=== PATIENT | female | born 1960 | race Caucasian/White ===

== ENCOUNTER → 2016-09-06 | Outpatient (CLI) | payer SELFPAY ==
[2016-09-06 08:02] LABS: CH 30.4; CHCM 32.8; HDW 2.25; HGB 13.5 gm/dL (11.4-16.0); MCH 29.9 pg (25.0-35.0); MCV 93.2 fL (80.0-100.0); Mean Platelet Volume 7.4; RBC 4.51 m/uL (3.80-5.40); WBC 6.9 k/uL (3.8-10.6)
[2016-09-06 10:23] LABS: ALT 32 U/L (9-52); AST 19 U/L (14-36); Alkaline Phosphatase 85 U/L (38-126); Anion Gap 10 mmol/L; Blood Urea Nitrogen 12 mg/dL (7-17); Calcium 9.3 mg/dL (8.4-10.2); Carbon Dioxide 26 mmol/L (22-30); Chloride 104 mmol/L (98-107); Cholesterol 209 mg/dL (<200); Glucose 84 mg/dL (74-99); HDL Cholesterol 64 mg/dL (40-60); Non-African American GFR(MDRD) >60 (>60 ml/min/1.73 sqM); Potassium 4.1 mmol/L (3.5-5.1); Sodium 140 mmol/L (137-145); Total Bilirubin 0.4 mg/dL (0.2-1.3); Total Protein 6.5 g/dL (6.3-8.2); Triglycerides 109 mg/dL (<150)
== END | disposition home or self-care (01) ==
LOC: LABWHC1 07:02
PROVIDERS: ATTEND Family Medicine
DX: Z00.00 Encounter for general adult medical examination without abnormal findings (principal); R82.90 Unspecified abnormal findings in urine
CPT/HCPCS: 36415; 80053; 80061; 84439; 84443; 85027

== ENCOUNTER → 2016-09-07 | Outpatient (CLI) | payer SELFPAY | END | disposition home or self-care (01) | LOC: LABWHC1 08:12 | PROVIDERS: ATTEND Family Medicine | DX: Z00.00 Encounter for general adult medical examination without abnormal findings (principal); R82.90 Unspecified abnormal findings in urine | CPT/HCPCS: 36415; 84588 ==

== ENCOUNTER 2017-05-09 11:10 | Inpatient (IN) | payer OTHER ==
[2017-05-09] MEDS ORDERED: ONDANSETRON 4 MG/2 ML VIAL IVP STA (12:50)
[2017-05-09] MEDS ORDERED: SODIUM CHLORIDE 0.9% 1,000 ML IV STA ×2 (12:50→14:46)
[2017-05-09] MEDS ORDERED: RX INFO: IV CONTRAST WAS GIVEN 1 EACH MISC MISCELLANE PRN (12:51)
--- NOTE | 2017-05-09 12:54 | ED ---
General Adult HPI - General Chief complaint: Nausea/Vomiting/Diarrhea Stated complaint: lower abdominal pain Ca patient Time Seen by Provider: 05/09/17 12:41 Source: patient, RN notes reviewed Mode of arrival: ambulatory Limitations: no limitations - History of Present Illness Initial comments: 56-year-old female presents to the emergency department with a chief complaint of lower abdominal pain with nausea vomiting. Patient states this started yesterday. Patient has noticed some changes in urination. Patient denies any fever chills with this. She states she has had a history of lymphoma she spoke to her cancer doctor and she was referred here due to the fact they do not know if it's related to her lymphoma pain versus something else. Patient states there is been no other symptoms at this time. Patient denies any back pain. Patient states she is not currently undergoing chemo and radiation. They were concerned due to the continued pain that wraps around her lower abdomen so she thought that she should be seen. There is been no diarrhea no blood in stool. Patient denies any recent fever, chills, shortness of breath, chest pain, back pain, numbness or tingling, dysuria or hematuria, constipation or diarrhea, headaches or visual changes, or any other current symptoms. - Related Data Home Medications Medication Instructions Recorded Confirmed Multivitamins, Thera [Multivitamin 1 tab PO DAILY 02/14/17 05/09/17 (formulary)] cloNIDine HCL [Catapres] 0.1 mg PO HS 02/14/17 05/09/17 ALPRAZolam [Xanax] 0.25 - 0.5 mg PO TID PRN 05/09/17 05/09/17 Acetaminophen Tab [Tylenol Tab] 1,000 mg PO Q6HR PRN 05/09/17 05/09/17 Allergies Allergy/AdvReac Type Severity Reaction Status Date / Time No Known Allergies Allergy Verified 05/09/17 13:08 Review of Systems ROS Statement: Those systems with pertinent positive or pertinent negative responses have been documented in the HPI. ROS Other: All systems not noted in ROS Statement are negative. Past Medical History Past Medical History: Cancer, Hypertension History of Any Multi-Drug Resistant Organisms: None Reported Past Surgical History: Cholecystectomy Additional Past Surgical History / Comment(s): eye Past Psychological History: No Psychological Hx Reported Smoking Status: Current some day smoker Past Alcohol Use History: None Reported Past Drug Use History: None Reported General Exam - General Exam Comments Initial Comments: General: The patient is awake and alert, in no distress, and does not appear acutely ill. Eye: Pupils are equal, round and reactive to light, extra-ocular movements are intact; there is normal conjunctiva bilaterally. No signs of icterus. Ears, nose, mouth and throat: There are moist mucous membranes and no oral lesions. Neck: The neck is supple, there is no tenderness. Cardiovascular: There is a regular rate and rhythm. No murmur, rub or gallop is appreciated. Respiratory: Lungs are clear to auscultation, respirations are non-labored, breath sounds are equal. No wheezes, stridor, rales, or rhonchi. Gastrointestinal: Soft, non-distended, mild tenderness in the lower abdomen without masses or organomegaly noted. There is no rebound some guarding present. No CVA tenderness. Bowel sounds are unremarkable. Back: There is no tenderness to palpation in the midline. There is no obvious deformity. No rashes noted. Musculoskeletal: Normal ROM, no tenderness, There is no pedal edema. There is no calf tenderness or swelling. Sensation intact. Pulses equal bilaterally 2+. Neurological: CN II-XII intact, There are no obvious motor or sensory deficits. Coordination appears grossly intact. Speech is normal. Skin: Skin is warm and dry and no rashes or lesions are noted. Psychiatric: Cooperative, appropriate mood & affect, normal judgment. Limitations: no limitations Course Vital Signs 05/09/17 05/09/17 05/09/17 11:51 14:46 14:47 Temperature 99.2 F 99.4 F Pulse Rate 125 H 121 H Respiratory 18 18 Rate Blood Pressure 160/87 140/71 O2 Sat by Pulse 96 89 L 95 Oximetry Medical Decision Making - Medical Decision Making 56-year-old female presents to the emergency department with a chief complaint of abdominal pain. At this time patient's CAT scan has been reviewed that show diverticulitis abscess with diverticulitis. Patient states that her surgeon is Dr. Lomax. Antibiotics have been started for the patient. Patient is becoming more tachycardic in the department. We will increase another fluid bolus we will give the patient Tylenol. Patient is in agreement with this plan. - Lab Data Result diagrams: 05/09/17 13:10 05/09/17 13:10 Lab Results 05/09/17 05/09/17 05/09/17 Range/Units 13:10 13:10 13:10 WBC 11.7 H (3.8-10.6) k/uL RBC 3.60 L (3.80-5.40) m/uL Hgb 9.3 L (11.4-16.0) gm/dL Hct 30.2 L (34.0-46.0) % MCV 83.8 (80.0-100.0) fL MCH 25.7 (25.0-35.0) pg MCHC 30.7 L (31.0-37.0) g/dL RDW 16.9 H (11.5-15.5) % Plt Count 380 (150-450) k/uL Neutrophils % 88 % Lymphocytes % 8 % Monocytes % 3 % Eosinophils % 0 % Basophils % 0 % Neutrophils # 10.3 H (1.3-7.7) k/uL Lymphocytes # 0.9 L (1.0-4.8) k/uL Monocytes # 0.3 (0-1.0) k/uL Eosinophils # 0.0 (0-0.7) k/uL Basophils # 0.0 (0-0.2) k/uL Hypochromasia Slight Anisocytosis Slight Sodium 137 (137-145) mmol/L Potassium 3.8 (3.5-5.1) mmol/L Chloride 100 (98-107) mmol/L Carbon Dioxide 23 (22-30) mmol/L Anion Gap 14 mmol/L BUN 7 (7-17) mg/dL Creatinine 0.40 L (0.52-1.04) mg/dL Est GFR (MDRD) Af Amer >60 (>60 ml/min/1.73 sqM) Est GFR (MDRD) Non-Af >60 (>60 ml/min/1.73 sqM) Glucose 97 (74-99) mg/dL Plasma Lactic Acid Marc 1.0 (0.7-2.0) mmol/L Calcium 9.1 (8.4-10.2) mg/dL Total Bilirubin 0.5 (0.2-1.3) mg/dL AST 23 (14-36) U/L ALT 30 (9-52) U/L Alkaline Phosphatase 170 H (38-126) U/L Total Protein 6.1 L (6.3-8.2) g/dL Albumin 3.4 L (3.5-5.0) g/dL Amylase <30 L (30-110) U/L Lipase 57 (23-300) U/L Urine Color Urine Appearance (Clear) Urine pH (5.0-8.0) Ur Specific [place] (1.001-1.035) Urine Protein (Negative) Urine Glucose (UA) (Negative) Urine Ketones (Negative) Urine Blood (Negative) Urine Nitrite (Negative) Urine Bilirubin (Negative) Urine Urobilinogen (<2.0) mg/dL Ur Leukocyte Esterase (Negative) Urine WBC (0-5) /hpf Ur Squamous Epith Cells (0-4) /hpf Urine Bacteria (None) /hpf 05/09/17 Range/Units 14:35 WBC (3.8-10.6) k/uL RBC (3.80-5.40) m/uL Hgb (11.4-16.0) gm/dL Hct (34.0-46.0) % MCV (80.0-100.0) fL MCH (25.0-35.0) pg MCHC (31.0-37.0) g/dL RDW (11.5-15.5) % Plt Count (150-450) k/uL Neutrophils % % Lymphocytes % % Monocytes % % Eosinophils % % Basophils % % Neutrophils # (1.3-7.7) k/uL Lymphocytes # (1.0-4.8) k/uL Monocytes # (0-1.0) k/uL Eosinophils # (0-0.7) k/uL Basophils # (0-0.2) k/uL Hypochromasia Anisocytosis Sodium (137-145) mmol/L Potassium (3.5-5.1) mmol/L Chloride (98-107) mmol/L Carbon Dioxide (22-30) mmol/L Anion Gap mmol/L BUN (7-17) mg/dL Creatinine (0.52-1.04) mg/dL Est GFR (MDRD) Af Amer (>60 ml/min/1.73 sqM) Est GFR (MDRD) Non-Af (>60 ml/min/1.73 sqM) Glucose (74-99) mg/dL Plasma Lactic Acid Marc (0.7-2.0) mmol/L Calcium (8.4-10.2) mg/dL Total Bilirubin (0.2-1.3) mg/dL AST (14-36) U/L ALT (9-52) U/L Alkaline Phosphatase (38-126) U/L Total Protein (6.3-8.2) g/dL Albumin (3.5-5.0) g/dL Amylase (30-110) U/L Lipase (23-300) U/L Urine Color Light Yellow Urine Appearance Clear (Clear) Urine pH 6.0 (5.0-8.0) Ur Specific [place] 1.012 (1.001-1.035) Urine Protein Negative (Negative) Urine Glucose (UA) Negative (Negative) Urine Ketones Trace H (Negative) Urine Blood Negative (Negative) Urine Nitrite Negative (Negative) Urine Bilirubin Negative (Negative) Urine Urobilinogen <2.0 (<2.0) mg/dL Ur Leukocyte Esterase Trace H (Negative) Urine WBC 2 (0-5) /hpf Ur Squamous Epith Cells 1 (0-4) /hpf Urine Bacteria Rare H (None) /hpf Disposition Clinical Impression: Sepsis, Colonic diverticular abscess, Acute diverticulitis, Lymphoma Disposition: ADMITTED IP TO THIS [facility] Condition: Stable Referrals: Federico Muñoz MD [Primary Care Provider] - 1-2 days Decision Date: 05/09/17 Decision Time: 15:04
[2017-05-09 13:31] LABS: Anisocytosis Slight; Basophils % (A) 0 %; Eosinophils % (A) 0 %; HCT 30.2 % (34.0-46.0); HGB 9.3 gm/dL (11.4-16.0); Hypochromasia Slight; Lymphocytes # (A) 0.9 k/uL (1.0-4.8); Lymphocytes % (A) 8 %; MCH 25.7 pg (25.0-35.0); MCHC 30.7 g/dL (31.0-37.0); MCV 83.8 fL (80.0-100.0); Mean Platelet Volume 7.2; Monocytes # (A) 0.3 k/uL (0-1.0); Monocytes % (A) 3 %; Neutrophils # (A) 10.3 k/uL (1.3-7.7); Neutrophils % (A) 88 %; Platelet Count 380 k/uL (150-450); RDW 16.9 % (11.5-15.5); WBC 11.7 k/uL (3.8-10.6)
[2017-05-09 13:42] LABS: ALT 30 U/L (9-52); AST 23 U/L (14-36); Albumin 3.4 g/dL (3.5-5.0); Alkaline Phosphatase 170 U/L (38-126); Amylase <30 U/L (30-110); Anion Gap 14 mmol/L; Blood Urea Nitrogen 7 mg/dL (7-17); Calcium 9.1 mg/dL (8.4-10.2); Carbon Dioxide 23 mmol/L (22-30); Chloride 100 mmol/L (98-107); Glucose 97 mg/dL (74-99); Lipase 57 U/L (23-300); Potassium 3.8 mmol/L (3.5-5.1); Sodium 137 mmol/L (137-145); Total Bilirubin 0.5 mg/dL (0.2-1.3); Total Protein 6.1 g/dL (6.3-8.2)
[2017-05-09] MEDS ORDERED: HYDROmorphone 0.5 MG/0.5 ML SYRINGE IVP STA (14:28)
--- NOTE | 2017-05-09 14:37 | CT ---
EXAMINATION TYPE: CT abdomen pelvis w con DATE OF EXAM: 05/09/2017 COMPARISON: Prior CT abdomen pelvis 02/14/2017 HISTORY: Lower abdominal pain CT DLP: 835.50 mGycm Automated exposure control for dose reduction was used. TECHNIQUE: Helical acquisition of images from the lung bases through the pelvis have been completed. CONTRAST: Performed without Oral Contrast and with IV Contrast, patient injected with 100 ml mL of Omnipaque 30 0. FINDINGS: LUNG BASES: There is a pleural effusion right greater than left with associated atelectasis present. Small pericardial effusion is present. AORTA: No significant abnormality is appreciated. LIVER/GB: Low-attenuation foci are present within the liver of varying sizes, largest measures approx imately 2.5 cm adjacent to the cristóbal, there are approximately 8-10 lesions present. Patient is post c holecystectomy. PANCREAS: There is adenopathy adjacent to the head of the pancreas towards the cristóbal as well as retro peritoneum. Adenopathy extends into the level of the lesser curvature of the stomach, root of the mes entery. SPLEEN: Spleen is enlarged. Some hypodense foci are scattered within the spleen. ADRENALS: No significant abnormality is seen. KIDNEYS: No significant abnormality is seen. REPRODUCTIVE ORGANS: No significant abnormality is seen BOWEL: There is extensive diverticular change in the sigmoid colon. Adjacent to the sigmoid colon th ere is a focal area of low attenuation with enhancing wall causing mass effect on the sigmoid colon a nd containing air as well as fluid measuring approximately 4.7 x 2.3 x 1 cm in size. Local inflammato ry change present within the fat.. FREE AIR: No Free Air visible. ASCITES: None visible. PELVIC ADENOPATHY: None visualized. RETROPERITONEAL ADENOPATHY: Retroperitoneal adenopathy between the inferior vena cava and aorta cuca ures approximately 18 mm in short axis, smaller shotty nodes are also present more inferiorly and tennille ng the common iliac regions, both groins show abnormally enlarged nodes, inguinal adenopathy, externa l iliac adenopathy noted. URINARY BLADDER: No significant abnormality is seen. OSSEOUS STRUCTURES: No significant abnormality is seen. IMPRESSION: DIVERTICULI ABSCESS, DIVERTICULITIS DESCRIBED. FINDINGS COMPATIBLE WITH PATIENT'S HISTORY OF LYMPH IVAN, POSSIBLE METASTATIC DISEASE WITHIN THE LIVER AND SPLEEN. Pleural effusions, pericardial effusion . Hepatosplenomegaly..
[2017-05-09] MEDS ORDERED: ACETAMINOPHEN IV (For NPO) 1,000 MG in EMPTY BAG 1 BAG IVPB ONE (14:46)
[2017-05-09] MEDS ORDERED: PIPERACILLIN-TAZOBACTAM 3.375 GM in DEXTROSE/WATER 1 50ML.BAG IVPB STA (14:47)
[2017-05-09 14:55] LABS: Appearance,Urine Clear (Clear); Bacteria,Urine Rare /hpf; Bilirubin,Urine Negative (Negative); Blood,Urine Negative (Negative); Color,Urine Light Yellow; Glucose,Urine (UA) Negative (Negative); Ketones,Urine Trace (Negative); Leukocyte Esterase,Urine Trace (Negative); Nitrite,Urine Negative (Negative); Protein,Urine Negative (Negative); Specific Gravity,Urine 1.012 (1.001-1.035); Squamous Epithelial Cell,Urine 1 /hpf (0-4); Urobilinogen,Urine <2.0 mg/dL (<2.0); WBC,Urine 2 /hpf (0-5)
[2017-05-09] MEDS ORDERED: ONDANSETRON 4 MG/2 ML VIAL IVP PRN (15:24)
[2017-05-09] MEDS ORDERED: ACETAMINOPHEN TAB 325 MG TAB PO PRN (15:24)
[2017-05-09] MEDS ORDERED: NALOXONE 0.4 MG/ML 1 ML VIAL IV PRN (15:24)
--- NOTE | 2017-05-09 15:37 | P.GSHP ---
History of Present Illness H&P Date: 05/09/17 Chief Complaint: Pelvic abdominal pain Is a 56-year-old female well-known to myself. Patient has a three-day history of abdominal pain. She underwent CAT scan in the emergency room was found have evidence of a diverticular abscess. Patient currently resting comfortably in bed. She is slightly hungry. Past Medical History Past Medical History: Cancer, Hypertension History of Any Multi-Drug Resistant Organisms: None Reported Past Surgical History: Cholecystectomy Additional Past Surgical History / Comment(s): eye Past Psychological History: No Psychological Hx Reported Smoking Status: Current some day smoker Past Alcohol Use History: None Reported Past Drug Use History: None Reported Medications and Allergies Home Medications Medication Instructions Recorded Confirmed Type Multivitamins, Thera [Multivitamin 1 tab PO DAILY 02/14/17 05/09/17 History (formulary)] cloNIDine HCL [Catapres] 0.1 mg PO HS 02/14/17 05/09/17 History ALPRAZolam [Xanax] 0.25 - 0.5 mg PO TID PRN 05/09/17 05/09/17 History Acetaminophen Tab [Tylenol Tab] 1,000 mg PO Q6HR PRN 05/09/17 05/09/17 History Allergies Allergy/AdvReac Type Severity Reaction Status Date / Time No Known Allergies Allergy Verified 05/09/17 13:08 Surgical - Exam Vital Signs Temp Pulse Resp BP Pulse Ox 99.2 F 125 H 18 160/87 96 05/09/17 11:51 05/09/17 11:51 05/09/17 11:51 05/09/17 11:51 05/09/17 11:51 - General well developed, no distress - Eyes PERRL - ENT normal pinna - Neck no masses - Respiratory normal expansion - Cardiovascular Rhythm: regular - Abdomen Mild right left lower quadrant tenderness Abdomen: soft Results - Labs 05/09/17 13:10 05/09/17 13:10 Abnormal Lab Results - Last 24 Hours (Table) 05/09/17 05/09/17 05/09/17 Range/Units 13:10 13:10 14:35 WBC 11.7 H (3.8-10.6) k/uL RBC 3.60 L (3.80-5.40) m/uL Hgb 9.3 L (11.4-16.0) gm/dL Hct 30.2 L (34.0-46.0) % MCHC 30.7 L (31.0-37.0) g/dL RDW 16.9 H (11.5-15.5) % Neutrophils # 10.3 H (1.3-7.7) k/uL Lymphocytes # 0.9 L (1.0-4.8) k/uL Creatinine 0.40 L (0.52-1.04) mg/dL Alkaline Phosphatase 170 H (38-126) U/L Total Protein 6.1 L (6.3-8.2) g/dL Albumin 3.4 L (3.5-5.0) g/dL Amylase <30 L (30-110) U/L Urine Ketones Trace H (Negative) Ur Leukocyte Esterase Trace H (Negative) Urine Bacteria Rare H (None) /hpf Diabetes panel 05/09/17 Range/Units 13:10 Sodium 137 (137-145) mmol/L Potassium 3.8 (3.5-5.1) mmol/L Chloride 100 (98-107) mmol/L Carbon Dioxide 23 (22-30) mmol/L BUN 7 (7-17) mg/dL Creatinine 0.40 L (0.52-1.04) mg/dL Glucose 97 (74-99) mg/dL Calcium 9.1 (8.4-10.2) mg/dL AST 23 (14-36) U/L ALT 30 (9-52) U/L Alkaline Phosphatase 170 H (38-126) U/L Total Protein 6.1 L (6.3-8.2) g/dL Albumin 3.4 L (3.5-5.0) g/dL Calcium panel 05/09/17 Range/Units 13:10 Calcium 9.1 (8.4-10.2) mg/dL Albumin 3.4 L (3.5-5.0) g/dL Pituitary panel 05/09/17 Range/Units 13:10 Sodium 137 (137-145) mmol/L Potassium 3.8 (3.5-5.1) mmol/L Chloride 100 (98-107) mmol/L Carbon Dioxide 23 (22-30) mmol/L BUN 7 (7-17) mg/dL Creatinine 0.40 L (0.52-1.04) mg/dL Glucose 97 (74-99) mg/dL Calcium 9.1 (8.4-10.2) mg/dL Adrenal panel 05/09/17 Range/Units 13:10 Sodium 137 (137-145) mmol/L Potassium 3.8 (3.5-5.1) mmol/L Chloride 100 (98-107) mmol/L Carbon Dioxide 23 (22-30) mmol/L BUN 7 (7-17) mg/dL Creatinine 0.40 L (0.52-1.04) mg/dL Glucose 97 (74-99) mg/dL Calcium 9.1 (8.4-10.2) mg/dL Total Bilirubin 0.5 (0.2-1.3) mg/dL AST 23 (14-36) U/L ALT 30 (9-52) U/L Alkaline Phosphatase 170 H (38-126) U/L Total Protein 6.1 L (6.3-8.2) g/dL Albumin 3.4 L (3.5-5.0) g/dL - Imaging CT scan - pelvis: report reviewed (5 cm diverticular abscess) Assessment and Plan Assessment: Diverticulosis. Patient will continue IV antibiotic. She'll remain on clear liquid diet. We will plan for outpatient colonoscopy when she is stable.
[2017-05-09] MEDS: SODIUM CHLORIDE 0.9% 1,000 ML IV SCH ×2 (15:43→16:40)
[2017-05-09] MEDS: PIPERACILLIN-TAZOBACTAM 3.375 GM in DEXTROSE/WATER 1 50ML.BAG IVPB SCH (15:43)
[2017-05-09 16:22] VITALS: BMI 30.7
[2017-05-09] MEDS: HYDROmorphone 0.5 MG/0.5 ML SYRINGE IVP PRN ×2 (20:31→23:15)
[2017-05-10] MEDS: PIPERACILLIN-TAZOBACTAM 3.375 GM in DEXTROSE/WATER 1 50ML.BAG IVPB SCH ×4 (02:10→23:58)
[2017-05-10] MEDS: HYDROmorphone 0.5 MG/0.5 ML SYRINGE IVP PRN ×7 (02:27→22:29)
[2017-05-10 06:42] LABS: Anisocytosis Slight; Basophils % (A) 0 %; Eosinophils % (A) 0 %; HCT 27.9 % (34.0-46.0); HGB 8.3 gm/dL (11.4-16.0); Hypochromasia Moderate; Lymphocytes # (A) 0.9 k/uL (1.0-4.8); Lymphocytes % (A) 11 %; MCH 25.4 pg (25.0-35.0); MCHC 29.9 g/dL (31.0-37.0); MCV 84.8 fL (80.0-100.0); Mean Platelet Volume 6.8; Monocytes # (A) 0.3 k/uL (0-1.0); Monocytes % (A) 3 %; Neutrophils # (A) 6.5 k/uL (1.3-7.7); Neutrophils % (A) 84 %; Platelet Count 314 k/uL (150-450); RBC 3.29 m/uL (3.80-5.40); RDW 16.5 % (11.5-15.5); WBC 7.8 k/uL (3.8-10.6)
[2017-05-10 06:58] LABS: ALT 27 U/L (9-52); AST 18 U/L (14-36); Albumin 2.8 g/dL (3.5-5.0); Alkaline Phosphatase 148 U/L (38-126); Anion Gap 11 mmol/L; Blood Urea Nitrogen 6 mg/dL (7-17); Calcium 8.6 mg/dL (8.4-10.2); Carbon Dioxide 24 mmol/L (22-30); Chloride 103 mmol/L (98-107); Glucose 87 mg/dL (74-99); Potassium 3.3 mmol/L (3.5-5.1); Sodium 138 mmol/L (137-145); Total Bilirubin 0.4 mg/dL (0.2-1.3); Total Protein 5.4 g/dL (6.3-8.2)
--- NOTE | 2017-05-10 12:11 | P.PN ---
Subjective Progress Note Date: 05/10/17 Principal diagnosis: Diverticular abscess Patient doing well today. Pain is improved. Tolerating liquids. T-max 100.3. Mildly tachycardic. White blood cell count 7.8. Objective - Vital Signs Vital signs: Vital Signs Temp 98.6 F 05/10/17 08:41 Pulse 109 H 05/10/17 09:00 Resp 20 05/10/17 08:41 BP 132/79 05/10/17 08:41 Pulse Ox 94 L 05/10/17 08:41 Intake & Output 05/09/17 05/10/17 05/10/17 18:59 06:59 18:59 Intake Total 970 200 Balance 970 200 Weight 70.2 kg Intake: Intake, IV Titration 970 Amount Sodium Chloride 0.9% 1, 970 000 ml @ 100 mls/hr IV . Q10H BERT Rx#:[id number] Oral 200 Other: Voiding Method Toilet # Voids 1 1 - Exam Abdomen: Soft, nondistended, mild tenderness left lower quadrant - Labs CBC & Chem 7: 05/10/17 06:12 05/10/17 06:12 Labs: Abnormal Lab Results - Last 24 Hours (Table) 05/09/17 05/09/17 05/09/17 Range/Units 13:10 13:10 14:35 WBC 11.7 H (3.8-10.6) k/uL RBC 3.60 L (3.80-5.40) m/uL Hgb 9.3 L (11.4-16.0) gm/dL Hct 30.2 L (34.0-46.0) % MCHC 30.7 L (31.0-37.0) g/dL RDW 16.9 H (11.5-15.5) % Neutrophils # 10.3 H (1.3-7.7) k/uL Lymphocytes # 0.9 L (1.0-4.8) k/uL Potassium (3.5-5.1) mmol/L BUN (7-17) mg/dL Creatinine 0.40 L (0.52-1.04) mg/dL Alkaline Phosphatase 170 H (38-126) U/L Total Protein 6.1 L (6.3-8.2) g/dL Albumin 3.4 L (3.5-5.0) g/dL Amylase <30 L (30-110) U/L Urine Ketones Trace H (Negative) Ur Leukocyte Esterase Trace H (Negative) Urine Bacteria Rare H (None) /hpf 05/10/17 05/10/17 Range/Units 06:12 06:12 WBC (3.8-10.6) k/uL RBC 3.29 L (3.80-5.40) m/uL Hgb 8.3 L (11.4-16.0) gm/dL Hct 27.9 L (34.0-46.0) % MCHC 29.9 L (31.0-37.0) g/dL RDW 16.5 H (11.5-15.5) % Neutrophils # (1.3-7.7) k/uL Lymphocytes # 0.9 L (1.0-4.8) k/uL Potassium 3.3 L (3.5-5.1) mmol/L BUN 6 L (7-17) mg/dL Creatinine 0.40 L (0.52-1.04) mg/dL Alkaline Phosphatase 148 H (38-126) U/L Total Protein 5.4 L (6.3-8.2) g/dL Albumin 2.8 L (3.5-5.0) g/dL Amylase (30-110) U/L Urine Ketones (Negative) Ur Leukocyte Esterase (Negative) Urine Bacteria (None) /hpf Microbiology - Last 24 Hours (Table) 05/09/17 14:35 Urine Culture - Preliminary Urine,Clean Catch Assessment and Plan (1) Colonic diverticular abscess Narrative/Plan: Continue IV antibiotics. Advance diet to full. Increase activity level. Current Visit: Yes Status: Acute Code(s): K57.20 - DVTRCLI OF LG INT W PERFORATION AND ABSCESS W/O BLEEDING SNOMED Code(s): 048267317
[2017-05-10] MEDS: SODIUM CHLORIDE 0.9% 1,000 ML IV SCH ×2 (13:03→23:50)
[2017-05-10] MEDS: cloNIDine HCL 0.1 MG TAB PO SCH (20:22)
[2017-05-11] MEDS: HYDROmorphone 0.5 MG/0.5 ML SYRINGE IVP PRN ×3 (00:52→06:35)
[2017-05-11 07:20] LABS: Anisocytosis Slight; Basophils % (A) 0 %; Eosinophils # (A) 0.1 k/uL (0-0.7); Eosinophils % (A) 1 %; HCT 27.3 % (34.0-46.0); HGB 8.4 gm/dL (11.4-16.0); Hypochromasia Moderate; Lymphocytes # (A) 0.9 k/uL (1.0-4.8); Lymphocytes % (A) 10 %; MCH 25.8 pg (25.0-35.0); MCHC 30.6 g/dL (31.0-37.0); MCV 84.4 fL (80.0-100.0); Monocytes # (A) 0.4 k/uL (0-1.0); Monocytes % (A) 5 %; Neutrophils # (A) 6.9 k/uL (1.3-7.7); Neutrophils % (A) 82 %; Platelet Count 324 k/uL (150-450); RBC 3.24 m/uL (3.80-5.40); RDW 16.7 % (11.5-15.5); WBC 8.4 k/uL (3.8-10.6)
[2017-05-11] MEDS: PIPERACILLIN-TAZOBACTAM 3.375 GM in DEXTROSE/WATER 1 50ML.BAG IVPB SCH ×3 (08:24→23:52)
--- NOTE | 2017-05-11 08:33 | P.PN ---
Subjective Progress Note Date: 05/11/17 Principal diagnosis: Diverticular abscess Patient says she feels lower abdominal discomfort again today. May be slightly improved from yesterday. No nausea. She is afebrile. White blood cell count is normal. Still with mild tachycardia Objective - Vital Signs Vital signs: Vital Signs Temp 98.9 F 05/11/17 07:30 Pulse 109 H 05/11/17 08:00 Resp 20 05/11/17 07:30 BP 143/84 05/11/17 07:30 Pulse Ox 93 L 05/11/17 07:30 Intake & Output 05/10/17 05/11/17 05/11/17 18:59 06:59 18:59 Intake Total 200 50 Balance 200 50 Intake: Intake, IV Titration 50 Amount Piperacillin-Tazobactam 3 50 .375 gm In Dextrose/Water 1 50ml.bag @ 12.5 mls/hr IVPB Q8HR BERT Rx#: [id number] Oral 200 Other: # Voids 1 1 1 - Exam Abdomen: Soft, nondistended, mild left lower quadrant tenderness - Labs CBC & Chem 7: 05/11/17 06:27 05/10/17 06:12 Labs: Abnormal Lab Results - Last 24 Hours (Table) 05/11/17 Range/Units 06:27 RBC 3.24 L (3.80-5.40) m/uL Hgb 8.4 L (11.4-16.0) gm/dL Hct 27.3 L (34.0-46.0) % MCHC 30.6 L (31.0-37.0) g/dL RDW 16.7 H (11.5-15.5) % Lymphocytes # 0.9 L (1.0-4.8) k/uL Microbiology - Last 24 Hours (Table) 05/09/17 14:35 Urine Culture - Final Urine,Clean Catch 05/09/17 13:10 Blood Culture - Preliminary Blood No Growth after 24 hours Assessment and Plan (1) Colonic diverticular abscess Narrative/Plan: Continue full liquids. Continue IV antibiotics. Consult medicine for medical management. Current Visit: Yes Status: Acute Code(s): K57.20 - DVTRCLI OF LG INT W PERFORATION AND ABSCESS W/O BLEEDING SNOMED Code(s): 395611295
[2017-05-11] MEDS ORDERED: HYDROmorphone 4 MG TABLET PO PRN (11:17)
[2017-05-11] MEDS: HYDROmorphone 2 MG TAB PO PRN ×2 (11:38→20:38)
[2017-05-11] MEDS: SODIUM CHLORIDE 0.9% 1,000 ML IV SCH ×2 (14:38→23:51)
[2017-05-11] MEDS: cloNIDine HCL 0.1 MG TAB PO SCH (20:46)
--- NOTE | 2017-05-11 21:26 | CONS ---
CONSULTATION DATE OF SERVICE: 05/11/2017. REASON FOR CONSULTATION: 1. Medical management. 2. Uncontrolled hypertension. 3. Tachycardia possibly secondary to dehydration and an infectious etiology. BRIEF HISTORY: 56-year-old female patient who presented to ED with complaint of abdominal pain which started about 3 days ago and has been getting progressively worse. The patient claims that she did not have any bloody stools, but did have a lot of nausea. No vomiting. In the ED, patient was worked up and was found to have diverticular abscesses. The patient was admitted to surgical service and medicine service is consulted for medical management. PAST MEDICAL HISTORY: Significant for hypertension. PAST SURGICAL HISTORY: Significant for cholecystectomy. SOCIAL HISTORY: Patient smokes every day. No history of alcohol abuse or drug abuse. FAMILY HISTORY: Negative for coronary artery disease, hypertension, diabetes. MEDICATIONS: Patient is on: 1. Multivitamins 1 daily. 2. Clonidine 0.1 mg p.o. daily. 3. Xanax 0.25 mg t.i.d. p.r.n. 4. Tylenol 1 p.o. q.6 hours p.r.n. REVIEW OF SYSTEMS: General: Patient denies fevers or chills. No unexplained weight loss. HEENT no vision or hearing loss. Respiratory system: No shortness of breath, cough or chest congestion. Cardiovascular: No chest pain or palpitations. GI: Abdominal pain as per HPI. Genitourinary: No hematuria. No dysuria. Nervous system. No dizziness, lightheadedness, or headaches. Skin: No pigmentations or rashes. Hematological: No coagulation disorders. No bleeding disorders. Lymphatics: No lymphadenopathy in cervical or axillary area. The rest of 14-point review of system is unremarkable. PHYSICAL EXAMINATION: The patient is awake, alert, oriented. She is in no acute distress. Vitals are temperature 99.2, pulse 75, respiration 18, blood pressure 160/87, O2 saturation 96%. HEENT: Atraumatic, normocephalic. Pupils equal and reactive to light. Extraocular movements intact. Buccal mucosa is fair. NECK: Supple. No goiter, lymphadenopathy. JVD is negative. No carotid bruit heard. Lungs are clear to auscultate. No rales, rhonchi, or wheezes. Heart is regular rate and rhythm without murmurs, gallop rhythm. ABDOMEN: Soft. There is mild to moderate tenderness in the right and left lower quadrant areas. Bowel sounds are positive. EXTREMITIES: No edema, clubbing or cyanosis. Pulses are palpable. Neurological examination: Cranial nerves 2-12 grossly intact. No gross motor or sensory deficit. Skin is warm, dry and intact. LAB: CBC, white blood count of 11.7, hemoglobin 9.3, hematocrit 30.2, and platelet count of 380. Chemical profile sodium of 137, potassium 3.8, chloride 100, bicarb 23, BUN 17, creatinine 0.4. ASSESSMENT: 1. Diverticular abscess. 2. Tachycardia possibly secondary to infection. 3. Uncontrolled hypertension. PLAN: Continue patient on IV antibiotics. The patient is started on clear liquid diet by surgical service and the plan is conservative management. We will monitor patient's blood pressure really closely and start on antihypertensive medication if blood pressure remains elevated. The patient is not scheduled for any testing while in the hospital and the plan is to do a colonoscopy as an outpatient once the patient is stable. Thank you for the consultation. GREGGL / DIANNAN: [id number] /
[2017-05-12] MEDS: HYDROmorphone 2 MG TAB PO PRN ×2 (05:51→20:02)
[2017-05-12 06:35] LABS: Anion Gap 9 mmol/L; Blood Urea Nitrogen 4 mg/dL (7-17); Calcium 8.5 mg/dL (8.4-10.2); Carbon Dioxide 28 mmol/L (22-30); Chloride 100 mmol/L (98-107); Glucose 95 mg/dL (74-99); Sodium 137 mmol/L (137-145)
[2017-05-12 06:40] LABS: Potassium 2.9 mmol/L (3.5-5.1)
[2017-05-12 06:42] LABS: Anisocytosis Slight; Basophils % (A) 0 %; Eosinophils # (A) 0.1 k/uL (0-0.7); Eosinophils % (A) 1 %; HCT 27.9 % (34.0-46.0); HGB 8.6 gm/dL (11.4-16.0); Hypochromasia Slight; Lymphocytes # (A) 0.9 k/uL (1.0-4.8); Lymphocytes % (A) 12 %; MCH 25.6 pg (25.0-35.0); MCHC 30.7 g/dL (31.0-37.0); MCV 83.2 fL (80.0-100.0); Monocytes # (A) 0.4 k/uL (0-1.0); Monocytes % (A) 5 %; Neutrophils # (A) 6.1 k/uL (1.3-7.7); Neutrophils % (A) 78 %; Platelet Count 353 k/uL (150-450); RBC 3.35 m/uL (3.80-5.40); RDW 16.7 % (11.5-15.5); WBC 7.7 k/uL (3.8-10.6)
[2017-05-12] MEDS: SODIUM CHLORIDE 0.9% 1,000 ML IV SCH ×2 (07:06→16:33)
[2017-05-12] MEDS ORDERED: Potassium Replacement Protocol 1 EACH MISC MISCELLANE PRN (07:57)
[2017-05-12] MEDS ORDERED: POTASSIUM CHLORIDE 10 MEQ in SODIUM CHLORIDE 0.9% 100 ML IVPB SCH (08:00)
[2017-05-12] MEDS: PIPERACILLIN-TAZOBACTAM 3.375 GM in DEXTROSE/WATER 1 50ML.BAG IVPB SCH ×3 (08:08→23:45)
--- NOTE | 2017-05-12 08:16 | P.PN ---
Subjective Progress Note Date: 05/12/17 Principal diagnosis: This is a continue present 56-year-old white female with known history of diverticular disease. The patient also has underlying carcinoma after cholecystectomy found that she had disease. The patient states no new pain. She seems tolerating diet. However, potassium level was 2.9 today. She will be given 30 mEq today. No sniffing nausea or vomiting. Seems to be tolerating diet. Objective - Vital Signs Vital signs: Vital Signs Temp 98.6 F 05/12/17 06:00 Pulse 97 05/12/17 06:00 Resp 20 05/12/17 06:00 BP 149/90 05/12/17 06:00 Pulse Ox 94 L 05/12/17 06:00 Intake & Output 05/11/17 05/12/17 05/12/17 18:59 06:59 18:59 Other: # Voids 1 1 # Bowel Movements 1 - Constitutional General appearance: Absent: average body habitus - Neck Neck: Absent: lymphadenopathy - Respiratory Respiratory: bilateral: CTA - Cardiovascular Rhythm: regular Heart sounds: normal: S1, S2 Abnormal Heart Sounds: Absent: S3 Gallop - Gastrointestinal General gastrointestinal: Present: tenderness. Absent: soft - Labs CBC & Chem 7: 05/12/17 06:09 05/12/17 06:09 Labs: Abnormal Lab Results - Last 24 Hours (Table) 05/12/17 05/12/17 Range/Units 06:09 06:09 RBC 3.35 L (3.80-5.40) m/uL Hgb 8.6 L (11.4-16.0) gm/dL Hct 27.9 L (34.0-46.0) % MCHC 30.7 L (31.0-37.0) g/dL RDW 16.7 H (11.5-15.5) % Lymphocytes # 0.9 L (1.0-4.8) k/uL Potassium 2.9 L* (3.5-5.1) mmol/L BUN 4 L (7-17) mg/dL Creatinine 0.40 L (0.52-1.04) mg/dL Microbiology - Last 24 Hours (Table) 05/09/17 13:10 Blood Culture - Preliminary Blood No Growth after 48 hours Assessment and Plan (1) Acute diverticulitis Current Visit: Yes Status: Acute Code(s): K57.92 - DVTRCLI OF INTEST, PART UNSP, W/O PERF OR ABSCESS W/O BLEED SNOMED Code(s): 553610829 (2) Colonic diverticular abscess Current Visit: Yes Status: Acute Code(s): K57.20 - DVTRCLI OF LG INT W PERFORATION AND ABSCESS W/O BLEEDING SNOMED Code(s): 373352970 (3) Lymphoma Current Visit: Yes Status: Acute Code(s): C85.90 - NON-HODGKIN LYMPHOMA, UNSPECIFIED, UNSPECIFIED SITE SNOMED Code(s): 983520529 Plan: Continue current regimen or treatment with addition of potassium. Check CBC and CMP in a.m. per Anticipate discharge in next 24-48 hours if that has significant improvement. See orders otherwise.
[2017-05-12] MEDS: POTASSIUM CHLORIDE 10 MEQ in WATER FOR INJECTION 1 100ML.BAG IVPB SCH ×3 (09:10→12:22)
--- NOTE | 2017-05-12 14:50 | P.PN ---
Subjective Progress Note Date: 05/12/17 56-year-old female seen and examined. Patient reports abdominal pain has improved is asking for diet to be advanced states had 2 bowel movements this morning still has mild tenderness to the left lower quadrant palpitation afebrile tachycardic heart rate in the 90s 2009 Patient's initial presentation to the emergency room with a chief complaint of developing diffuse abdominal pain left greater than the right lower quadrant. A computed tomography scan of the abdomen pelvis showed diverticulitis as with diverticulitis compatible with the patient's history of lymphoma possible metastasis within the liver and the spleen started on IV hydration and IV antibiotics Objective - Vital Signs Vital signs: Vital Signs Temp 98.9 F 05/12/17 11:58 Pulse 100 05/12/17 11:58 Resp 18 05/12/17 11:58 BP 140/76 05/12/17 11:58 Pulse Ox 96 05/12/17 11:58 Intake & Output 05/11/17 05/12/17 05/12/17 18:59 06:59 18:59 Other: # Voids 1 1 # Bowel Movements 1 - Exam Exam Abdomen soft slight tenderness to the left lower quadrant no rebound no facial grimacing with palpitation to the abdominal wall bowel sounds present no nausea no vomiting patient is asking for diet to be advanced states is hungry states had 2 bowel movements this morning - Labs CBC & Chem 7: 05/12/17 06:09 05/12/17 06:09 Labs: Abnormal Lab Results - Last 24 Hours (Table) 05/12/17 05/12/17 Range/Units 06:09 06:09 RBC 3.35 L (3.80-5.40) m/uL Hgb 8.6 L (11.4-16.0) gm/dL Hct 27.9 L (34.0-46.0) % MCHC 30.7 L (31.0-37.0) g/dL RDW 16.7 H (11.5-15.5) % Lymphocytes # 0.9 L (1.0-4.8) k/uL Potassium 2.9 L* (3.5-5.1) mmol/L BUN 4 L (7-17) mg/dL Creatinine 0.40 L (0.52-1.04) mg/dL Microbiology - Last 24 Hours (Table) 05/09/17 13:10 Blood Culture - Preliminary Blood No Growth after 48 hours Assessment and Plan Assessment: Impression Present on admission abdominal pain suspect due to 5 cm diverticular abscess as evident on a CAT scan of the abdomen pelvis Colonic diverticular abscess History of lymphoma Sinus tachycardia likely reactive Electrolyte abnormality hypokalemia Present on admission leukocytosis tachycardia febrile the sirs criteria sepsis likely due to diverticular abscess with diverticulitis as suggested on a CAT scan of the abdomen pelvis Plan Continue IV fluid monitor response DVT and GI prophylaxis Pain control IV Zosyn as ordered Potassium replaced Advance diet monitor the response Will plan outpatient colonoscopy when stable The above impression and plan of care have been discussed and directed by signing physician. Faith Fabian nurse practitioner acting as scribe for signing physician.
[2017-05-12] MEDS: traMADol 50 MG TAB PO PRN (16:30)
[2017-05-12] MEDS: cloNIDine HCL 0.1 MG TAB PO SCH (20:02)
[2017-05-12 20:10] VITALS: RESP 18
[2017-05-13] MEDS: traMADol 50 MG TAB PO PRN (06:17)
[2017-05-13 06:19] LABS: Anisocytosis Slight; HCT 27.4 % (34.0-46.0); HGB 8.1 gm/dL (11.4-16.0); Hypochromasia Slight; MCH 24.7 pg (25.0-35.0); MCHC 29.5 g/dL (31.0-37.0); MCV 83.5 fL (80.0-100.0); Mean Platelet Volume 7.5; Platelet Count 310 k/uL (150-450); RBC 3.28 m/uL (3.80-5.40); WBC 7.3 k/uL (3.8-10.6)
[2017-05-13 06:35] LABS: ALT 35 U/L (9-52); AST 24 U/L (14-36); Albumin 2.7 g/dL (3.5-5.0); Alkaline Phosphatase 151 U/L (38-126); Anion Gap 8 mmol/L; Blood Urea Nitrogen 3 mg/dL (7-17); Calcium 8.6 mg/dL (8.4-10.2); Carbon Dioxide 29 mmol/L (22-30); Chloride 99 mmol/L (98-107); Glucose 92 mg/dL (74-99); Potassium 3.3 mmol/L (3.5-5.1); Sodium 136 mmol/L (137-145); Total Bilirubin 0.3 mg/dL (0.2-1.3); Total Protein 5.1 g/dL (6.3-8.2)
[2017-05-13 08:11] VITALS: BP 122/80; PULSE 101; TEMP 98.2
[2017-05-13] MEDS: PIPERACILLIN-TAZOBACTAM 3.375 GM in DEXTROSE/WATER 1 50ML.BAG IVPB SCH (08:14)
--- NOTE | 2017-05-13 10:50 | P.DS ---
Providers Date of admission: 05/09/17 15:23 Expected date of discharge: 05/13/17 Attending physician: Jaxson Cotto Consults: 05/11/17 08:32 Consult Physician Routine Consulting Provider: Federico Muñoz Consult Reason/Comments: Medical management Do you want consulting provider notified?: Yes Primary care physician: Federico Muñoz Hospital Course: 56-year-old female presented on the day of admission to the emergency room with a chief complaint of developing diffuse abdominal pain left greater than the right lower quadrant. CAT scan of the abdomen and pelvis showed diverticulitis compatible with the patient's history of a lymphoma. Patient stated that the pain started around her lower abdomen went around lower back. There was no diarrhea no blood noted in stool no fever chills. Patient was started on clear liquid and IV antibiotics monitored closely over the course of hospitalization abdominal pain improved on the day of discharge patient was felt to be hemodynamically stable appropriate to proceed with a discharge tolerating a diet Impression Present on admission abdominal pain suspect due to 5 cm diverticular abscess as evident on a CAT scan of the abdomen pelvis Colonic diverticular abscess History of lymphoma Sinus tachycardia likely reactive Electrolyte abnormality hypokalemia Present on admission leukocytosis tachycardia febrile the sirs criteria sepsis likely due to diverticular abscess with diverticulitis as suggested on a CAT scan of the abdomen pelvis The above impression and plan of care have been discussed and directed by signing physician. Faith Fabian nurse practitioner acting as scribe for signing physician. Patient Condition at Discharge: Stable Plan - Discharge Summary Discharge Rx Participant: No New Discharge Prescriptions: New Levofloxacin [Levaquin] 500 mg PO DAILY #7 tab metroNIDAZOLE [Flagyl] 500 mg PO QID #28 tab Continue cloNIDine HCL [Catapres] 0.1 mg PO HS Multivitamins, Thera [Multivitamin (formulary)] 1 tab PO DAILY Acetaminophen Tab [Tylenol] 1,000 mg PO Q6HR PRN PRN Reason: Pain ALPRAZolam [Xanax] 0.25 - 0.5 mg PO TID PRN PRN Reason: Anxiety Discharge Medication List Multivitamins, Thera [Multivitamin (formulary)] 1 tab PO DAILY 02/14/17 [History ] cloNIDine HCL [Catapres] 0.1 mg PO HS 02/14/17 [History] ALPRAZolam [Xanax] 0.25 - 0.5 mg PO TID PRN 05/09/17 [History] Acetaminophen Tab [Tylenol] 1,000 mg PO Q6HR PRN 05/09/17 [History] Levofloxacin [Levaquin] 500 mg PO DAILY #7 tab 05/13/17 [Rx] metroNIDAZOLE [Flagyl] 500 mg PO QID #28 tab 05/13/17 [Rx] Follow up Appointment(s)/Referral(s): Federico Muñoz MD [Primary Care Provider] - 1-2 days Jaxson Cotto MD [STAFF PHYSICIAN] - 1 Week Activity/Diet/Wound Care/Special Instructions: Diet as provided by the dietitian for a diverticulosis diet Discharge Disposition: HOME SELF-CARE
[2017-05-13] MEDS: POTASSIUM CHLORIDE ER 20 MEQ TAB.ER PO SCH ×2 (11:03→11:54)
== END 2017-05-13 12:15 | disposition home or self-care (01) | DRG 872 ==
LOC: EC 11:10 → 6PED 15:23
PROVIDERS: ADMIT Surgery; ATTEND Surgery
DX: A41.9 Sepsis, unspecified organism (principal); C85.90 Non-Hodgkin lymphoma, unspecified, unspecified site; K57.20 Diverticulitis of large intestine with perforation and abscess without bleeding; E86.0 Dehydration; E87.6 Hypokalemia; I10 Essential (primary) hypertension; F17.200 Nicotine dependence, unspecified, uncomplicated; Z90.49 Acquired absence of other specified parts of digestive tract; Z79.899 Other long term (current) drug therapy
CPT/HCPCS: 36415; 74177; 80048; 80053; 81001; 82150; 83605; 83690; 85025; 85027; 87040; 87086; 96361; 96365; 96375; 99285

== ENCOUNTER 2017-06-09 18:27 | Inpatient (IN) | payer OTHER ==
[2017-06-09 19:15] LABS: Anisocytosis Slight; Basophils % (A) 0 %; Eosinophils # (A) 0.1 k/uL (0-0.7); Eosinophils % (A) 1 %; HCT 28.9 % (34.0-46.0); HGB 8.6 gm/dL (11.4-16.0); Hypochromasia Moderate; Lymphocytes # (A) 1.1 k/uL (1.0-4.8); Lymphocytes % (A) 9 %; MCH 24.4 pg (25.0-35.0); MCHC 29.9 g/dL (31.0-37.0); MCV 81.6 fL (80.0-100.0); Mean Platelet Volume 8.1; Microcytosis Slight; Monocytes # (A) 0.5 k/uL (0-1.0); Monocytes % (A) 4 %; Neutrophils # (A) 9.6 k/uL (1.3-7.7); Neutrophils % (A) 84 %; Platelet Count 451 k/uL (150-450); RBC 3.54 m/uL (3.80-5.40); RDW 18.6 % (11.5-15.5); WBC 11.4 k/uL (3.8-10.6)
[2017-06-09 19:26] LABS: ALT 42 U/L (9-52); AST 27 U/L (14-36); Albumin 3.2 g/dL (3.5-5.0); Alkaline Phosphatase 291 U/L (38-126); Anion Gap 16 mmol/L; Blood Urea Nitrogen 14 mg/dL (7-17); Calcium 9.3 mg/dL (8.4-10.2); Carbon Dioxide 26 mmol/L (22-30); Chloride 99 mmol/L (98-107); Glucose 116 mg/dL (74-99); Potassium 3.9 mmol/L (3.5-5.1); Sodium 141 mmol/L (137-145); Total Bilirubin 0.3 mg/dL (0.2-1.3)
[2017-06-09 19:35] LABS: INR 1.1 (<1.2)
[2017-06-09 19:36] LABS: Partial Thromboplastin Time 26.1 sec (22.0-30.0); Prothrombin Time 10.6 sec (9.0-12.0)
--- NOTE | 2017-06-09 19:40 | XR ---
EXAMINATION TYPE: XR chest 2V DATE OF EXAM: 06/09/2017 COMPARISON: NONE HISTORY: Short of breath TECHNIQUE: Frontal and lateral views of the chest are obtained. FINDINGS: Heart is probably enlarged. There is opacification of the right lower hemithorax. There is a small linear infiltrate at the left lung base. There is slight blunting of left costophrenic angle . There is minimal pulmonary congestion. IMPRESSION: There is combined large right pleural effusion and right lower lobe consolidation and at electasis. Mild heart failure is possible. Small left pleural effusion.
[2017-06-09 19:42] LABS: Creatine Kinase 29 U/L (30-135)
[2017-06-09 19:55] LABS: Creatine Kinase MB 0.5 ng/mL (0.0-2.4); Troponin I <0.012 ng/mL (0.000-0.034)
[2017-06-09] MEDS ORDERED: RX INFO: IV CONTRAST WAS GIVEN 1 EACH MISC MISCELLANE PRN (20:58)
[2017-06-09] MEDS ORDERED: IPRATROPIUM-ALBUTEROL 3 ML NEB INHALATION STA (20:59)
--- NOTE | 2017-06-09 22:07 | CT ---
EXAMINATION TYPE: CT angio chest DATE OF EXAM: 06/09/2017 9:41 PM COMPARISON: 02/14/2017 HISTORY: SOB, hx of lymphoma. CT DLP: 263 mGycm Automated exposure control for dose reduction was used. CONTRAST: CTA scan of the thorax is performed with IV Contrast, patient injected with 60 mL of Isovue 370, pulm onary embolism protocol. There are 3-D post processed images.. FINDINGS: There is a very large right pleural effusion. There is significant atelectasis of the right lung. I s ee no filling defects in the pulmonary arteries. There are mediastinal and bronchial lymph nodes that measure up to almost 2 cm. There is a mild pericardial effusion. There is no evidence of thoracic ao rtic aneurysm or dissection. There is 3 cm subcarinal lymph node. IMPRESSION: NO EVIDENCE OF PULMONARY EMBOLISM. THERE IS A NEW LARGE RIGHT PLEURAL EFFUSION COMPARED TO OLD EXAM. EXTENSIVE MEDIASTINAL AND BRONCHIAL ADENOPATHY CONSISTENT WITH LYMPHOMA IS UNCHANGED. NEW SMALL PERIC ARDIAL EFFUSION.
--- NOTE | 2017-06-09 22:57 | ED ---
SOB HPI - General Source: patient, family Mode of arrival: wheelchair Limitations: no limitations <Juarez Cotto - Last Filed: 06/09/17 22:57> <Guanaco Meeks - Last Filed: 06/09/17 23:55> - General Chief Complaint: Shortness of Breath Stated Complaint: Leslie HARP Ca PATIENT Time Seen by Provider: 06/09/17 20:41 - History of Present Illness Initial Comments: This 56-year-old white female presents with a complaint of shortness of breath. This has been progressively worsening over the past 2 weeks. Seems be worse with any exertion. She denies any chest pain. She does complain of some left leg pain and swelling. This is both present to her left proximal anterior lateral leg as well as her left calf region. She denies any known history DVT or PE. She states that she had her gallbladder out in February and they found some lymphoma. This was reaffirmed last month when she is admitted with diverticulitis. She is followed up with oncology, Dr. Partida, and they apparently related that this is a slow-growing non-Hodgkin's lymphoma and no chemotherapy or radiation therapy is necessary at this time. She states that the difficulty in breathing as a new symptom. She has no previous known Cardiologic or pulmonary abnormalities. She denies any history of DVT or PE. No fevers or chills. No other complaints or modifying factors. (Juarez Cotto) - Related Data Home Medications Medication Instructions Recorded Confirmed Multivitamins, Thera [Multivitamin 1 tab PO DAILY 02/14/17 06/09/17 (formulary)] cloNIDine HCL [Catapres] 0.1 mg PO HS 02/14/17 06/09/17 ALPRAZolam [Xanax] 0.5 mg PO TID PRN 05/09/17 06/09/17 Acetaminophen Tab [Tylenol] 1,000 mg PO Q6HR PRN 05/09/17 06/09/17 Albuterol Sulfate [Proair Hfa] 2 puff INHALATION RT-Q6H PRN 06/09/17 06/09/17 Ibuprofen [Motrin Ib] 400 mg PO Q6HR PRN 06/09/17 06/09/17 traMADol HCL [Ultram] 50 mg PO Q6HR PRN 06/09/17 06/09/17 Allergies Allergy/AdvReac Type Severity Reaction Status Date / Time No Known Allergies Allergy Verified 06/09/17 20:12 Review of Systems ROS Other: All systems not noted in ROS Statement are negative. <Juarez Cotto - Last Filed: 06/09/17 22:57> ROS Other: All systems not noted in ROS Statement are negative. <KrystalGuanaco carvajal - Last Filed: 06/09/17 23:55> ROS Statement: Those systems with pertinent positive or pertinent negative responses have been documented in the HPI. Past Medical History Past Medical History: Cancer, Hypertension Additional Past Medical History / Comment(s): non hodgkins lymphoma diagnosis February 2017 stage 3 History of Any Multi-Drug Resistant Organisms: None Reported Past Surgical History: Cholecystectomy Additional Past Surgical History / Comment(s): eye surgery at age 6 years Past Psychological History: Anxiety Smoking Status: Light tobacco smoker Past Alcohol Use History: None Reported Past Drug Use History: None Reported - Past Family History Mother History Unknown: Yes Additional Family Medical History / Comment(s): adopted <Juarez Cotto - Last Filed: 06/09/17 22:57> General Exam Limitations: no limitations <Juarez Cotto - Last Filed: 06/09/17 22:57> <Guanaco Meeks - Last Filed: 06/09/17 23:55> - General Exam Comments Initial Comments: GENERAL: The patient is well nourished and well hydrated. VITAL SIGNS: Heart rate, blood pressure, respiratory rate reviewed as recorded in nurse's notes. EYES: Pupils are round and reactive. Extraocular movements are intact. No conjunctival / lid redness or swelling. ENT: No external evidence of injury, swelling, or ecchymosis. Airway is patent. Throat is clear. NECK: Nontender. No swelling or evidence of injury. No subcutaneous emphysema. Trachea is midline. No thyroid mass. HEART: Tachycardic heart rate. Good peripheral pulses. LUNGS/CHEST: There is some slightly decreased breath sounds noted on the right base. No rales, rhonchi, or wheezes. No ecchymosis, subcutaneous emphysema, or tenderness. ABDOMEN: Abdomen soft without tenderness. No palpable masses or organomegaly. No peritoneal signs. No abdominal wall swelling or ecchymosis. EXTREMITIES: There is some tenderness and swelling noted primarily to the left leg over the left proximal anterior lateral leg as well as into the left calf. Normal muscle tone and function. No thoracolumbar tenderness. NEUROLOGIC: Sensation is grossly intact. Cranial nerve exam reveals face is symmetrical, tongue is midline, speech is clear. SKIN: No abrasions or ecchymosis is noted. No induration or masses noted. PSYCHIATRIC: Alert and oriented. Appropriate behavior and judgment. (Juarez Cotto) Vital Signs 06/09/17 06/09/17 06/09/17 18:32 21:24 21:44 Temperature 97.8 F Pulse Rate 122 H 117 H Respiratory 24 20 14 Rate Blood Pressure 153/75 O2 Sat by Pulse 93 L Oximetry 06/09/17 06/09/17 06/09/17 21:54 21:57 23:07 Temperature Pulse Rate 118 H 118 H 119 H Respiratory 14 20 20 Rate Blood Pressure 127/76 116/60 O2 Sat by Pulse 98 94 L Oximetry Medical Decision Making - Lab Data Result diagrams: 06/09/17 19:01 06/09/17 19:01 <Juarez Cotto - Last Filed: 06/09/17 22:57> - Lab Data Result diagrams: 06/09/17 19:01 06/09/17 19:01 <Guanaco Meeks - Last Filed: 06/09/17 23:55> - Medical Decision Making The patient was seen and examined. All diagnostics were reviewed. An IV is started. The patient had laboratory drawn which does show a degree of anemia. She also had a chest x-ray done which shows a significant pleural effusion essentially consistent with the woman or cavity on the right side. The patient is hypoxic at 93% on room air. It is felt as though this effusion could be related to her lymphoma. The patient also has some significant swelling and tenderness to her left leg and is felt as though DVT and PE need to be ruled out. A lower extremity venous Doppler as well as a computed tomography angiogram of the chest is ordered and is pending and further care will be passed off to oncoming physician. (Juarez Cotto) Receive this patient has a sign out pending the results of her imaging studies. We are not finding evidence of PE or of DVT. Discussed case with Dr. Muñoz and patient be admitted and also have consultation with Dr. Lynne. (Guanaco Meeks) - Lab Data Lab Results 06/09/17 06/09/17 06/09/17 Range/Units 19:01 19:01 19:01 WBC 11.4 H (3.8-10.6) k/uL RBC 3.54 L (3.80-5.40) m/uL Hgb 8.6 L (11.4-16.0) gm/dL Hct 28.9 L (34.0-46.0) % MCV 81.6 (80.0-100.0) fL MCH 24.4 L (25.0-35.0) pg MCHC 29.9 L (31.0-37.0) g/dL RDW 18.6 H (11.5-15.5) % Plt Count 451 H (150-450) k/uL Neutrophils % 84 % Lymphocytes % 9 % Monocytes % 4 % Eosinophils % 1 % Basophils % 0 % Neutrophils # 9.6 H (1.3-7.7) k/uL Lymphocytes # 1.1 (1.0-4.8) k/uL Monocytes # 0.5 (0-1.0) k/uL Eosinophils # 0.1 (0-0.7) k/uL Basophils # 0.0 (0-0.2) k/uL Hypochromasia Moderate Anisocytosis Slight Microcytosis Slight PT (9.0-12.0) sec INR (<1.2) APTT (22.0-30.0) sec Sodium 141 (137-145) mmol/L Potassium 3.9 (3.5-5.1) mmol/L Chloride 99 (98-107) mmol/L Carbon Dioxide 26 (22-30) mmol/L Anion Gap 16 mmol/L BUN 14 (7-17) mg/dL Creatinine 0.40 L (0.52-1.04) mg/dL Est GFR (CKD-EPI)AfAm >90 (>60 ml/min/1.73 sqM) Est GFR (CKD-EPI)NonAf >90 (>60 ml/min/1.73 sqM) Glucose 116 H (74-99) mg/dL Calcium 9.3 (8.4-10.2) mg/dL Total Bilirubin 0.3 (0.2-1.3) mg/dL AST 27 (14-36) U/L ALT 42 (9-52) U/L Alkaline Phosphatase 291 H (38-126) U/L Total Creatine Kinase 29 L (30-135) U/L CK-MB (CK-2) 0.5 (0.0-2.4) ng/mL CK-MB (CK-2) Rel Index 1.7 Troponin I <0.012 (0.000-0.034) ng/mL NT-Pro-B Natriuret Pep pg/mL Total Protein 6.0 L (6.3-8.2) g/dL Albumin 3.2 L (3.5-5.0) g/dL 06/09/17 06/09/17 Range/Units 19:01 19:01 WBC (3.8-10.6) k/uL RBC (3.80-5.40) m/uL Hgb (11.4-16.0) gm/dL Hct (34.0-46.0) % MCV (80.0-100.0) fL MCH (25.0-35.0) pg MCHC (31.0-37.0) g/dL RDW (11.5-15.5) % Plt Count (150-450) k/uL Neutrophils % % Lymphocytes % % Monocytes % % Eosinophils % % Basophils % % Neutrophils # (1.3-7.7) k/uL Lymphocytes # (1.0-4.8) k/uL Monocytes # (0-1.0) k/uL Eosinophils # (0-0.7) k/uL Basophils # (0-0.2) k/uL Hypochromasia Anisocytosis Microcytosis PT 10.6 (9.0-12.0) sec INR 1.1 (<1.2) APTT 26.1 (22.0-30.0) sec Sodium (137-145) mmol/L Potassium (3.5-5.1) mmol/L Chloride (98-107) mmol/L Carbon Dioxide (22-30) mmol/L Anion Gap mmol/L BUN (7-17) mg/dL Creatinine (0.52-1.04) mg/dL Est GFR (CKD-EPI)AfAm (>60 ml/min/1.73 sqM) Est GFR (CKD-EPI)NonAf (>60 ml/min/1.73 sqM) Glucose (74-99) mg/dL Calcium (8.4-10.2) mg/dL Total Bilirubin (0.2-1.3) mg/dL AST (14-36) U/L ALT (9-52) U/L Alkaline Phosphatase (38-126) U/L Total Creatine Kinase (30-135) U/L CK-MB (CK-2) (0.0-2.4) ng/mL CK-MB (CK-2) Rel Index Troponin I (0.000-0.034) ng/mL NT-Pro-B Natriuret Pep 433 pg/mL Total Protein (6.3-8.2) g/dL Albumin (3.5-5.0) g/dL Disposition <Juarez Cotto - Last Filed: 06/09/17 22:57> <Guanaco Meeks - Last Filed: 06/09/17 23:55> Clinical Impression: Hypoxia, Sinus tachycardia, Dyspnea, Pleural effusion, right, Non-Hodgkin lymphoma, Left leg swelling, Anemia Disposition: ADMITTED IP TO THIS HOSP Condition: Fair Referrals: Federico Muñoz MD [Primary Care Provider] - 1-2 days
[2017-06-09] MEDS ORDERED: ACETAMINOPHEN TAB 325 MG TAB PO STA (23:31)
--- NOTE | 2017-06-09 23:40 | US ---
EXAMINATION TYPE: US venous doppler duplex LE BI DATE OF EXAM: 06/09/2017 10:32 PM COMPARISON: NONE CLINICAL HISTORY: Pain, hx of Non Hodgkin's lymphoma SIDE PERFORMED: Bilateral TECHNIQUE: The lower extremity deep venous system is examined utilizing real time linear array sonog vern with graded compression, doppler sonography and color-flow sonography. VESSELS IMAGED: External Iliac Vein (EIV) Common Femoral Vein Deep Femoral Vein Greater Saphenous Vein * Femoral Vein Popliteal Vein Small Saphenous Vein * Proximal Calf Veins (* superficial vessels) Large lymph nodes noted in bilateral groin. Pitting edema in bilateral thighs. Right Leg: Negative for DVT Left Leg: Negative for DVT IMPRESSION: No evidence of deep venous thrombosis in both legs. There are bilateral enlarged inguinal lymph nodes. The largest on the left measures 2.5 cm. The largest on the right measures 2 cm.
[2017-06-09] MEDS ORDERED: MORPHINE SULFATE/PF 10MG/10ML VL IV STA (23:45)
[2017-06-09] MEDS ORDERED: ACETAMINOPHEN TAB 325 MG TAB PO PRN (23:47)
[2017-06-09] MEDS ORDERED: MORPHINE SULFATE/PF 10MG/10ML VL IV PRN (23:47)
[2017-06-09] MEDS ORDERED: ONDANSETRON 4 MG/2 ML VIAL IVP PRN (23:47)
[2017-06-09] MEDS ORDERED: NALOXONE 0.4 MG/ML 1 ML VIAL IV PRN (23:47)
[2017-06-09] MEDS ORDERED: IBUPROFEN 400 MG TAB PO PRN (23:49)
[2017-06-09] MEDS ORDERED: traMADol 50 MG TAB PO PRN (23:49)
[2017-06-09] MEDS: SODIUM CHLORIDE 0.9% 1,000 ML IV SCH (23:55)
[2017-06-10] MEDS: ALPRAZolam 0.5 MG TAB PO PRN (01:25)
[2017-06-10] MEDS: HYDROcodone/APAP 5-325MG 1 EACH TAB PO PRN ×3 (06:42→20:00)
[2017-06-10] MEDS ORDERED: MORPHINE ORAL SOLN 10 MG/5 ML CUP PO PRN (09:36)
--- NOTE | 2017-06-10 10:07 | P.CNPUL ---
History of Present Illness Consult date: 06/10/17 Reason for consult: dyspnea, pleural effusion Chief complaint: Shortness of breath for 2 week duration History of present illness: 56-year-old female seen evaluated examined on fourth floor, she is presented and admitted from the emergency department for progressive increased shortness breath of 2 week duration,Seems be worse with any exertion. She denies any chest pain. She does complain of some left leg pain and swelling. This is both present to her left proximal anterior lateral leg as well as her left calf region. She denies any known history DVT or PE. She states that she had her gallbladder out in February and they found to have a diagnosis of lymphoma, patient is being followed by Dr. Hernandez. This was reaffirmed last month when she is admitted with diverticulitis. She is followed up with oncology, Dr. Partida, and they apparently related that this is a slow-growing non-Hodgkin's lymphoma and no chemotherapy or radiation therapy is necessary at this time. She states that the difficulty in breathing as a new symptom. She has no previous known Cardiologic or pulmonary abnormalities. She denies any history of DVT or PE. No fevers or chills. Her spiral CT scan of the chest was negative for pulmonary embolism duplex ultrasound was also negative however patient has been found to have a large pleural effusion on the right side along with mediastinal hilar lymphadenopathy Review of Systems All systems: negative Past Medical History Past Medical History: Cancer, Hypertension Additional Past Medical History / Comment(s): non hodgkins lymphoma diagnosis February 2017 stage 3 History of Any Multi-Drug Resistant Organisms: None Reported Past Surgical History: Cholecystectomy Additional Past Surgical History / Comment(s): eye surgery at age 6 years Past Anesthesia/Blood Transfusion Reactions: No Reported Reaction Past Psychological History: Anxiety Additional Psychological History / Comment(s): anxiety since lymphoma diagnosis Smoking Status: Former smoker Past Alcohol Use History: None Reported Past Drug Use History: None Reported - Past Family History Mother History Unknown: Yes Additional Family Medical History / Comment(s): adopted Medications and Allergies Home Medications Medication Instructions Recorded Confirmed Type Multivitamins, Thera [Multivitamin 1 tab PO DAILY 02/14/17 06/09/17 History (formulary)] cloNIDine HCL [Catapres] 0.1 mg PO HS 02/14/17 06/09/17 History ALPRAZolam [Xanax] 0.5 mg PO TID PRN 05/09/17 06/09/17 History Acetaminophen Tab [Tylenol] 1,000 mg PO Q6HR PRN 05/09/17 06/09/17 History Albuterol Sulfate [Proair Hfa] 2 puff INHALATION RT-Q6H PRN 06/09/17 06/09/17 History Ibuprofen [Motrin Ib] 400 mg PO Q6HR PRN 06/09/17 06/09/17 History traMADol HCL [Ultram] 50 mg PO Q6HR PRN 06/09/17 06/09/17 History Allergies Allergy/AdvReac Type Severity Reaction Status Date / Time No Known Allergies Allergy Verified 06/09/17 20:12 Physical Exam Vitals: Vital Signs Temp Pulse Pulse Resp BP BP Pulse Ox 06/10/17 08:23 97 06/10/17 05:53 98.8 F 107 H 16 164/74 96 06/10/17 01:30 16 06/10/17 01:01 99.7 F H 110 H 16 135/64 96 06/10/17 00:35 99.9 F H 112 H 20 126/70 95 06/10/17 00:01 120 H 20 130/81 96 06/09/17 23:07 119 H 20 116/60 94 L 06/09/17 21:57 118 H 20 127/76 98 06/09/17 21:54 118 H 14 06/09/17 21:44 117 H 14 06/09/17 21:24 20 06/09/17 18:32 97.8 F 122 H 24 153/75 93 L Intake and Output 06/09/17 06/10/17 06/10/17 22:59 06:59 14:59 Other: # Voids 1 Weight 68.039 kg GENERAL: The patient is well nourished and well hydrated. VITAL SIGNS: Heart rate, blood pressure, respiratory rate reviewed as recorded in nurse's notes. EYES: Pupils are round and reactive. Extraocular movements are intact. ENT: No external evidence of injury, swelling, or ecchymosis. Airway is patent. Throat is clear. NECK: Nontender. No swelling or evidence of injury. No subcutaneous emphysema. Trachea is midline. No thyroid mass. HEART: Tachycardic heart rate. Good peripheral pulses. LUNGS/CHEST: Dullness to percussion as well as decrease in air entry on the right side up to two third of the lung. No rales, rhonchi, or wheezes. No ecchymosis, subcutaneous emphysema, or tenderness. ABDOMEN: Abdomen soft without tenderness. No palpable masses or organomegaly. No peritoneal signs. No abdominal wall swelling or ecchymosis. EXTREMITIES: There is some tenderness and swelling noted primarily to the left leg over the left proximal anterior lateral leg as well as into the left calf. Normal muscle tone and function. No thoracolumbar tenderness. NEUROLOGIC: Sensation is grossly intact. Cranial nerve exam reveals face is symmetrical, tongue is midline, speech is clear. SKIN: No abrasions or ecchymosis is noted. No induration or masses noted. PSYCHIATRIC: Alert and oriented. Appropriate behavior and judgment. Results - Laboratory Findings CBC and BMP: 06/09/17 19:01 06/09/17 19:01 PT/INR, D-dimer PT 10.6 sec (9.0-12.0) 06/09/17 19: INR 1.1 (<1.2) 06/09/17 19:01 D-Dimer 3.60 mg/L FEU (<0.60) H 06/09/17 19:01 Abnormal lab findings: Abnormal Labs 06/09/17 06/09/17 06/09/17 19:01 19:01 19:01 WBC 11.4 H RBC 3.54 L Hgb 8.6 L Hct 28.9 L MCH 24.4 L MCHC 29.9 L RDW 18.6 H Plt Count 451 H Neutrophils # 9.6 H D-Dimer Creatinine 0.40 L Glucose 116 H Alkaline Phosphatase 291 H Total Creatine Kinase 29 L Total Protein 6.0 L Albumin 3.2 L 06/09/17 19:01 WBC RBC Hgb Hct MCH MCHC RDW Plt Count Neutrophils # D-Dimer 3.60 H Creatinine Glucose Alkaline Phosphatase Total Creatine Kinase Total Protein Albumin - Diagnostic Findings Chest x-ray: report reviewed, image reviewed (Large right-sided pleural effusion is present on chest x-ray,) CT scan - chest: report reviewed, image reviewed (On chest x-ray large right- sided pleural effusion is present, computed tomography scan of the chest revealed mediastinal hilar lymphadenopathy along with large pleural effusion) Assessment and Plan Assessment: Large right-sided pleural effusion Shortness of breath related to above Lymphoma Mediastinal hilar lymphadenopathy related to above Hypertension hypertensive cardiovascular disease Depression and generalized anxiety disorder Plan: Care plan discussed with the patient at length, will proceed with ultrasound of the chest for fluid marking and right thoracentesis to be performed early in the morning tomorrow, procedure has been explained to the patient at length alternative and side effects explained suspect effusion is developed because of worsening of lymphoma would recommend oncology evaluation if okay with primary service Time with Patient: Greater than 30
--- NOTE | 2017-06-10 12:19 | P.HPIM ---
History of Present Illness H&P Date: 06/10/17 Chief Complaint: Shortness of breath with pleural effusion. This is a history and physical on a 56-year-old white female who was recently diagnosed with slow Goring lymphoma after having cholecystectomy and pathology report. She's been followed by oncology with has not developed a three-day history of worsening shortness of breath. Pleural effusion is otherwise noted. She is admitted for treatment for this but no fever or chills but no weight loss is stated. She has not underlying history otherwise of element of COPD. No overt weight loss stated. No nausea, vomiting or diarrhea is stated. No hemoptysis is noted. Review of Systems Constitutional: Denies chills, Denies fever Eyes: denies blurred vision, denies pain Ears, nose, mouth and throat: Denies headache, Denies sore throat Cardiovascular: Denies chest pain, Denies shortness of breath Respiratory: Reports as per HPI Gastrointestinal: Denies abdominal pain, Denies diarrhea, Denies nausea, Denies vomiting Genitourinary: Denies dysuria, Denies hematuria Musculoskeletal: Denies myalgias Past Medical History Past Medical History: Cancer, Hypertension Additional Past Medical History / Comment(s): non hodgkins lymphoma diagnosis February 2017 stage 3 History of Any Multi-Drug Resistant Organisms: None Reported Past Surgical History: Cholecystectomy Additional Past Surgical History / Comment(s): eye surgery at age 6 years Past Anesthesia/Blood Transfusion Reactions: No Reported Reaction Past Psychological History: Anxiety Additional Psychological History / Comment(s): anxiety since lymphoma diagnosis Smoking Status: Former smoker Past Alcohol Use History: None Reported Past Drug Use History: None Reported - Past Family History Mother History Unknown: Yes Additional Family Medical History / Comment(s): adopted Medications and Allergies Home Medications Medication Instructions Recorded Confirmed Type Multivitamins, Thera [Multivitamin 1 tab PO DAILY 02/14/17 06/09/17 History (formulary)] cloNIDine HCL [Catapres] 0.1 mg PO HS 02/14/17 06/09/17 History ALPRAZolam [Xanax] 0.5 mg PO TID PRN 05/09/17 06/09/17 History Acetaminophen Tab [Tylenol] 1,000 mg PO Q6HR PRN 05/09/17 06/09/17 History Albuterol Sulfate [Proair Hfa] 2 puff INHALATION RT-Q6H PRN 06/09/17 06/09/17 History Ibuprofen [Motrin Ib] 400 mg PO Q6HR PRN 06/09/17 06/09/17 History traMADol HCL [Ultram] 50 mg PO Q6HR PRN 06/09/17 06/09/17 History Allergies Allergy/AdvReac Type Severity Reaction Status Date / Time No Known Allergies Allergy Verified 06/09/17 20:12 Physical Exam Vitals: Vital Signs Temp Pulse Pulse Resp BP BP Pulse Ox 06/10/17 08:23 97 06/10/17 05:53 98.8 F 107 H 16 164/74 96 06/10/17 01:30 16 06/10/17 01:01 99.7 F H 110 H 16 135/64 96 06/10/17 00:35 99.9 F H 112 H 20 126/70 95 06/10/17 00:01 120 H 20 130/81 96 06/09/17 23:07 119 H 20 116/60 94 L 06/09/17 21:57 118 H 20 127/76 98 06/09/17 21:54 118 H 14 06/09/17 21:44 117 H 14 06/09/17 21:24 20 06/09/17 18:32 97.8 F 122 H 24 153/75 93 L Intake and Output 06/09/17 06/10/17 06/10/17 22:59 06:59 14:59 Other: # Voids 1 Weight 68.039 kg - Constitutional General appearance: no acute distress - EENT Eyes: EOMI - Neck Neck: no lymphadenopathy - Respiratory Respiratory: right: diminished - Cardiovascular Rhythm: regular Heart sounds: normal: S1, S2 Abnormal Heart Sounds: no S3 Gallop - Gastrointestinal General gastrointestinal: no absent bowel sounds - Neurologic Neurologic: CNII-XII intact - Musculoskeletal Musculoskeletal: gait normal - Psychiatric Psychiatric: A&O x's 3, appropriate affect Results CBC & Chem 7: 06/09/17 19:01 06/09/17 19:01 Labs: Abnormal Lab Results - Last 24 Hours (Table) 06/09/17 06/09/17 06/09/17 Range/Units 19:01 19:01 19:01 WBC 11.4 H (3.8-10.6) k/uL RBC 3.54 L (3.80-5.40) m/uL Hgb 8.6 L (11.4-16.0) gm/dL Hct 28.9 L (34.0-46.0) % MCH 24.4 L (25.0-35.0) pg MCHC 29.9 L (31.0-37.0) g/dL RDW 18.6 H (11.5-15.5) % Plt Count 451 H (150-450) k/uL Neutrophils # 9.6 H (1.3-7.7) k/uL D-Dimer (<0.60) mg/L FEU Creatinine 0.40 L (0.52-1.04) mg/dL Glucose 116 H (74-99) mg/dL Alkaline Phosphatase 291 H (38-126) U/L Total Creatine Kinase 29 L (30-135) U/L Total Protein 6.0 L (6.3-8.2) g/dL Albumin 3.2 L (3.5-5.0) g/dL 06/09/17 Range/Units 19:01 WBC (3.8-10.6) k/uL RBC (3.80-5.40) m/uL Hgb (11.4-16.0) gm/dL Hct (34.0-46.0) % MCH (25.0-35.0) pg MCHC (31.0-37.0) g/dL RDW (11.5-15.5) % Plt Count (150-450) k/uL Neutrophils # (1.3-7.7) k/uL D-Dimer 3.60 H (<0.60) mg/L FEU Creatinine (0.52-1.04) mg/dL Glucose (74-99) mg/dL Alkaline Phosphatase (38-126) U/L Total Creatine Kinase (30-135) U/L Total Protein (6.3-8.2) g/dL Albumin (3.5-5.0) g/dL Thrombosis Risk Factor Assmnt - Choose All That Apply Any of the Below Risk Factors Present?: Yes Each Factor Represents 1 point: Age 41-60 years, Obesity (BMI >25), Serious lung disease incl. pneumonia (< 1month), Swollen legs (current) Other congenital or acquired thrombophilia - If yes, enter type in comment: No Thrombosis Risk Factor Assessment Total Risk Factor Score: 4 Thrombosis Risk Factor Assessment Level: Moderate Risk Assessment and Plan (1) Anemia Current Visit: Yes Status: Acute Code(s): D64.9 - ANEMIA, UNSPECIFIED SNOMED Code(s): 316529140 (2) Non-Hodgkin lymphoma Current Visit: Yes Status: Acute Code(s): C85.90 - NON-HODGKIN LYMPHOMA, UNSPECIFIED, UNSPECIFIED SITE SNOMED Code(s): 853065785 (3) Pleural effusion, right Current Visit: Yes Status: Acute Code(s): J90 - PLEURAL EFFUSION, NOT ELSEWHERE CLASSIFIED SNOMED Code(s): 40699607 Plan: Go ahead and await thoracentesis. New Check CBC and CMP in a.m.-watch anemia closely. Otherwise, the patient is a full code. Reconcile medications. See orders otherwise. Prognosis is pending secondary to pathology of effusion. Time with Patient: Less than 30
[2017-06-10] MEDS: MULTIVITAMINS, THERA 1 EACH TAB PO SCH (13:19)
--- NOTE | 2017-06-10 13:31 | US ---
EXAMINATION TYPE: US chest DATE OF EXAM: 06/10/2017 COMPARISON: Chest CT 06/09/2017 CLINICAL HISTORY: FLUID MARKING FOR THORACENTESIS. EXAM MEASUREMENTS: Right Pleural Effusion fluid pocket: 9.7 cm Right skin to fluid thickness: 2.4 cm Right side marked for possible thoracentesis outside the dept. Pulmonologists are able to review the images in the patient?s EMR. IMPRESSIONS: Pleural effusion on the right.
[2017-06-10] MEDS: cloNIDine HCL 0.1 MG TAB PO SCH (20:00)
[2017-06-11] MEDS: SODIUM CHLORIDE 0.9% 1,000 ML IV SCH (02:16)
[2017-06-11] MEDS: HYDROcodone/APAP 5-325MG 1 EACH TAB PO PRN ×3 (02:22→20:56)
[2017-06-11] MEDS: ALPRAZolam 0.5 MG TAB PO PRN (09:26)
[2017-06-11 09:32] LABS: Anisocytosis Slight; HCT 27.2 % (34.0-46.0); HGB 8.4 gm/dL (11.4-16.0); Hypochromasia Marked; MCH 25.9 pg (25.0-35.0); MCHC 31.1 g/dL (31.0-37.0); MCV 83.1 fL (80.0-100.0); Mean Platelet Volume 7.5; Platelet Count 391 k/uL (150-450); RBC 3.27 m/uL (3.80-5.40); RDW 18.6 % (11.5-15.5); WBC 10.5 k/uL (3.8-10.6)
--- NOTE | 2017-06-11 09:39 | P.PN ---
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, hypertension, depression 06/11/2017, patient seen eval reexamined during the rounds clinically patient is doing well awake and alert breathing comfortably at rest but get very short of breath on activity and exertion denies any chest pain does have intermittent dry cough and discussed with her at length about ultrasound finding and is finding on the CAT scan also discussed with the we'll proceed with a right thoracentesis, procedure detail side effect alternate event complication expressed explained to the patient and has been at length 56-year-old female seen evaluated examined on fourth floor, she is presented and admitted from the emergency department for progressive increased shortness breath of 2 week duration,Seems be worse with any exertion. She denies any chest pain. She does complain of some left leg pain and swelling. This is both present to her left proximal anterior lateral leg as well as her left calf region. She denies any known history DVT or PE. She states that she had her gallbladder out in February and they found to have a diagnosis of lymphoma, patient is being followed by Dr. Hernandez. This was reaffirmed last month when she is admitted with diverticulitis. She is followed up with oncology, Dr. Partida, and they apparently related that this is a slow-growing non-Hodgkin's lymphoma and no chemotherapy or radiation therapy is necessary at this time. She states that the difficulty in breathing as a new symptom. She has no previous known Cardiologic or pulmonary abnormalities. She denies any history of DVT or PE. No fevers or chills. Her spiral CT scan of the chest was negative for pulmonary embolism duplex ultrasound was also negative however patient has been found to have a large pleural effusion on the right side along with mediastinal hilar lymphadenopathy Objective - Vital Signs Vital signs: Vital Signs Temp 97.8 F 06/11/17 07:00 Pulse 100 06/11/17 07:00 Resp 18 06/11/17 07:00 BP 136/73 06/11/17 07:00 Pulse Ox 95 06/11/17 07:00 Intake & Output 06/10/17 06/11/17 06/11/17 18:59 06:59 18:59 Other: # Voids 3 2 - Exam GENERAL: The patient is well nourished and well hydrated. VITAL SIGNS: Heart rate, blood pressure, respiratory rate reviewed as recorded in nurse's notes. EYES: Pupils are round and reactive. Extraocular movements are intact. ENT: No external evidence of injury, swelling, or ecchymosis. Airway is patent. Throat is clear. NECK: Nontender. No swelling or evidence of injury. No subcutaneous emphysema. Trachea is midline. No thyroid mass. HEART: Tachycardic heart rate. Good peripheral pulses. LUNGS/CHEST: Dullness to percussion as well as decrease in air entry on the right side up to two third of the lung. No rales, rhonchi, or wheezes. No ecchymosis, subcutaneous emphysema, or tenderness. ABDOMEN: Abdomen soft without tenderness. No palpable masses or organomegaly. No peritoneal signs. No abdominal wall swelling or ecchymosis. EXTREMITIES: There is some tenderness and swelling noted primarily to the left leg over the left proximal anterior lateral leg as well as into the left calf. Normal muscle tone and function. No thoracolumbar tenderness. NEUROLOGIC: Sensation is grossly intact. Cranial nerve exam reveals face is symmetrical, tongue is midline, speech is clear. SKIN: No abrasions or ecchymosis is noted. No induration or masses noted. PSYCHIATRIC: Alert and oriented. Appropriate behavior and judgment. - Labs CBC & Chem 7: 06/09/17 19:01 06/09/17 19:01 Assessment and Plan Assessment: Large right-sided pleural effusion Shortness of breath related to above Lymphoma Mediastinal hilar lymphadenopathy related to above Hypertension hypertensive cardiovascular disease Depression and generalized anxiety disorder Plan: Care plan discussed with the patient at length, reviewed ultrasound of the chest will proceed with a right thoracentesis this morning, procedure has been explained to the patient at length alternative and side effects explained suspect effusion is developed because of worsening of lymphoma would recommend oncology evaluation if okay with primary service, labs ordered, consulted Dr. Partida/oncology has been initiated Time with Patient: Greater than 30
--- NOTE | 2017-06-11 09:43 | P.PCN ---
Date of Procedure: 06/11/17 Preoperative Diagnosis: Large right pleural effusion, B-cell lymphoma, shortness of breath Postoperative Diagnosis: As above Procedure(s) Performed: Right thoracentesis Anesthesia: local Surgeon: John Lynne Estimated Blood Loss (ml): 0 Condition: stable Disposition: floor Indications for Procedure: As above Operative Findings: As below Description of Procedure: Patient prepared and draped in a usual fashion ultrasound finding an x-ray finding and CAT scan finding reviewed procedure explained to the patient and family, 1% was lidocaine infiltrated into the eighth intercostal space around mid scapular line gauge 24 needle was utilized to infiltrate and subsequently entered into pleural space anesthesia was given followed by aspiration of dark yellow pleural fluid the needle was withdrawn a stab incision of less than 1/8 of a centimeter was performed followed by placement of catheter in needle needle was withdrawn catheter left in position and 2.1 L of dark yellow pleural fluid aspirated, patient tolerated procedure well no complication noted fluid is being sent for Gram stain and culture cytology cell count if and chemistry a chest x-ray postprocedure pending
[2017-06-11 10:05] LABS: ALT 44 U/L (9-52); AST 36 U/L (14-36); Albumin 3.1 g/dL (3.5-5.0); Alkaline Phosphatase 291 U/L (38-126); Anion Gap 15 mmol/L; Blood Urea Nitrogen 9 mg/dL (7-17); Carbon Dioxide 26 mmol/L (22-30); Chloride 101 mmol/L (98-107); Glucose 86 mg/dL (74-99); Potassium 4.1 mmol/L (3.5-5.1); Sodium 142 mmol/L (137-145); Total Bilirubin 0.3 mg/dL (0.2-1.3); Total Protein 5.8 g/dL (6.3-8.2)
--- NOTE | 2017-06-11 10:21 | XR ---
EXAMINATION TYPE: XR chest 1V portable DATE OF EXAM: 06/11/2017 Comparison: 06/09/2017 Clinical History: 56-year-old female post thoracentesis Findings: Heart normal size. Aorta and pulmonary vasculature within normal limits. Interval decrease in size of the patient's right pleural effusion. Some small residual effusion remains. There is patchy opacity throughout the right lung which also remains some fluid thickening the minor fissure. No appreciable pneumothorax. Impression: 1. Status post right-sided thoracentesis. A small residual right effusion remains. No appreciable pne umothorax. 2. Patchy atelectasis/consolidation within the right lower lung.
[2017-06-11 10:40] LABS: Total Protein 5.9 g/dL (6.3-8.2)
[2017-06-11] MEDS: MULTIVITAMINS, THERA 1 EACH TAB PO SCH (12:19)
[2017-06-11 15:20] LABS: Color,BF Yellow
[2017-06-11 15:21] LABS: Appearance,BF Cloudy; Nucleated Cells, Body Fluid 665 /uL; RBC, Body Fluid 3885 /uL
--- NOTE | 2017-06-11 15:52 | P.CONS ---
History of Present Illness - Reason for Consult Consult date: 06/11/17 follicular lymphoma Requesting physician: John Lynne - Chief Complaint LOYD, SOB - History of Present Illness Mrs. Castillo is a pleasant female seen by Dr. Partida who presented initially 02/14/17 with c/o progressive RUQ pain x 2 days, associated with SOB, CTA of the chest done on 02/14/17, negative for PE but did show enlarged mediastinal and bronchial lymph nodes, CT AP showed fluid around the gallbladder, possibly related to choleycystitis, and enlarged celiac and mesenteric nodes, US showed wall thickening of the gallbladder with gallstones, she had laparoscopic cholecystectomy with Dr. Cotto. At her follow up appt she was told the pathology was positive for low-grade B-cell non-Hodgkin's lymphoma involving the gallbladder wall and pericystic lymph nodes, [facility] confirmed diagnosis and further defined the NHL as low-grade follicular type. She was seen by Dr. Partida in Mar and since pt was nearly asymptomatic plan was for observation and to consider treatment if she became symptomatic. In Apr pt was admitted and treated for a diagnosis of diverticulitis. Now pt presents with c/o 2 week progressive SOB, LOYD, worse with activity and deep breathing, she states it felt like her lung is being "squished" from the outside, she denies fevers, night sweats, her lymph nodes in her groin are actually smaller, some have disappeared, she will have LN swell in the neck and bilateral axilla randomly, denies recent illness other then as stated, she has lost 7lbs in the last month but, blames some of that on the diverticulitis then the breathing problems, occasional constipation, no black or bloody stool, appetite and breathing is better after thoracentesis, swelling in the legs is better, no excessive or unrealistic fatigue, denies any other c/o. Review of Systems 14 point ROS as stated in HPI Past Medical History Past Medical History: Cancer, Hypertension Additional Past Medical History / Comment(s): non hodgkins lymphoma diagnosis February 2017 stage 3 History of Any Multi-Drug Resistant Organisms: None Reported Past Surgical History: Cholecystectomy Additional Past Surgical History / Comment(s): eye surgery at age 6 years Past Anesthesia/Blood Transfusion Reactions: No Reported Reaction Past Psychological History: Anxiety Additional Psychological History / Comment(s): anxiety since lymphoma diagnosis Smoking Status: Former smoker Past Alcohol Use History: None Reported Past Drug Use History: None Reported - Past Family History Mother History Unknown: Yes Additional Family Medical History / Comment(s): adopted Medications and Allergies Home Medications Medication Instructions Recorded Confirmed Type Multivitamins, Thera [Multivitamin 1 tab PO DAILY 02/14/17 06/09/17 History (formulary)] cloNIDine HCL [Catapres] 0.1 mg PO HS 02/14/17 06/09/17 History ALPRAZolam [Xanax] 0.5 mg PO TID PRN 05/09/17 06/09/17 History Acetaminophen Tab [Tylenol] 1,000 mg PO Q6HR PRN 05/09/17 06/09/17 History Albuterol Sulfate [Proair Hfa] 2 puff INHALATION RT-Q6H PRN 06/09/17 06/09/17 History Ibuprofen [Motrin Ib] 400 mg PO Q6HR PRN 06/09/17 06/09/17 History traMADol HCL [Ultram] 50 mg PO Q6HR PRN 06/09/17 06/09/17 History Allergies Allergy/AdvReac Type Severity Reaction Status Date / Time No Known Allergies Allergy Verified 06/09/17 20:12 Physical Exam Vitals: Vital Signs Temp Pulse Resp BP Pulse Ox 06/11/17 15:03 18 06/11/17 13:41 98.2 F 99 18 114/59 92 L 06/11/17 08:00 16 06/11/17 07:00 97.8 F 100 18 136/73 95 06/10/17 23:00 97.3 F L 102 H 16 101/68 94 L Intake and Output 06/11/17 06/11/17 06/11/17 06:59 14:59 22:59 Other: # Voids 2 3 - Constitutional General appearance: average body habitus, cooperative, no acute distress - EENT left eye cataract Eyes: anicteric sclerae, EOMI ENT: normal oropharynx - Neck left neck nodule (feels SQ), no gross lymphadenopathy in neck, right axilla 2cm rubbery LN palpated - Respiratory Respiratory: bilateral: CTA (few bibasilar crackles on inspiration) - Cardiovascular Rhythm: regular Heart sounds: normal: S1, S2 Abnormal Heart Sounds: no systolic murmur, no diastolic murmur, no rub, no S3 Gallop, no S4 Gallop, no click, no other leg Peripheral Edema: bilateral: None - Gastrointestinal General gastrointestinal: normal bowel sounds, soft - Genitourinary (2) 2-2.5cm hard, fixed inguinal LN palpated in bilateral inguinal areas, smaller and fewer then previous - Integumentary Integumentary: pale - Neurologic Neurologic: CNII-XII intact - Musculoskeletal Musculoskeletal: strength equal bilaterally - Psychiatric Psychiatric: A&O x's 3, appropriate affect, intact judgment & insight Results CBC & Chem 7: 06/11/17 08:25 06/11/17 08:25 Labs: Abnormal Lab Results - Last 24 Hours (Table) 06/11/17 06/11/17 06/11/17 Range/Units 08:25 08:25 08:25 RBC 3.27 L (3.80-5.40) m/uL Hgb 8.4 L (11.4-16.0) gm/dL Hct 27.2 L (34.0-46.0) % RDW 18.6 H (11.5-15.5) % Creatinine 0.40 L (0.52-1.04) mg/dL Alkaline Phosphatase 291 H (38-126) U/L Lactate Dehydrogenase 726 H (313-618) U/L Total Protein 5.8 L 5.9 L (6.3-8.2) g/dL Albumin 3.1 L (3.5-5.0) g/dL Chest x-ray: report reviewed CT scan - chest: report reviewed Venous US: report reviewed Assessment and Plan (1) Pleural effusion, right Narrative/Plan: Pulmonary has done thoracentesis, breathing improved, cytology is pending. Current Visit: Yes Status: Acute Priority: High Code(s): J90 - PLEURAL EFFUSION, NOT ELSEWHERE CLASSIFIED SNOMED Code(s): 37467681 (2) Anemia Narrative/Plan: This is progressive since Mar, noted to have decreased in Apr when she was in for diverticulitis. Anemia work up will be ordered. 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 Will do anemia work up in case the progressive anemia is related to her diverticulitis episode. Also, will wait for pleural fluid cytology to see if involved with lymphoma. Pt does have her 3mo f/u already scheduled with Dr. Partida in 12 days so, results of current testing/labs/cytology will be discussed at that visit and a plan of care can be developed. She and her are aware that she may possibly need treatment. They understand that treatment is to reduce symptoms and that she does not have a curable disease unless, she were to have SCT. Pt and are well educated on s/s of progressive disease (sweats, lymphadenopathy , fevers) and will report to Dr. Partida sooner if this happens. Current Visit: Yes Status: Acute Priority: High Code(s): C82.09 - FOLLICULAR LYMPHOMA GRADE I, EXTRNOD AND SOLID ORGAN SITES SNOMED Code(s): 240719903
[2017-06-11 19:30] LABS: Total Protein, Body Fluid 4100 mg/dL
--- NOTE | 2017-06-11 20:07 | P.PN ---
Subjective Progress Note Date: 06/11/17 Principal diagnosis: Pleural effusion. This is a Progress note on a 56-year-old white female centimeter for pleural effusion. She has an underlying history of follicular lymphoma which was found after having cholecystectomy. The patient has dyspnea on exertion but has an underlying history of COPD. Appreciate pulmonology input. Objective - Vital Signs Vital signs: Vital Signs Temp 98.8 F 06/11/17 15:50 Pulse 94 06/11/17 15:50 Resp 19 06/11/17 15:50 BP 155/65 06/11/17 15:50 Pulse Ox 94 L 06/11/17 15:50 Intake & Output 06/11/17 06/11/17 06/12/17 06:59 18:59 06:59 Other: # Voids 2 1 - Constitutional General appearance: Present: no acute distress, obese - EENT Eyes: Absent: abnormal pupil - Respiratory Respiratory: right: diminished - Cardiovascular Heart sounds: normal: S1, S2 Abnormal Heart Sounds: Absent: S3 Gallop - Gastrointestinal General gastrointestinal: Present: soft. Absent: tenderness - Neurologic Neurologic: Present: CNII-XII intact. Absent: focal deficits - Musculoskeletal Musculoskeletal: Present: gait normal - Labs CBC & Chem 7: 06/11/17 08:25 06/11/17 08:25 Labs: Abnormal Lab Results - Last 24 Hours (Table) 06/11/17 06/11/17 06/11/17 Range/Units 08:25 08:25 08:25 RBC 3.27 L (3.80-5.40) m/uL Hgb 8.4 L (11.4-16.0) gm/dL Hct 27.2 L (34.0-46.0) % RDW 18.6 H (11.5-15.5) % Creatinine 0.40 L (0.52-1.04) mg/dL Alkaline Phosphatase 291 H (38-126) U/L Lactate Dehydrogenase 726 H (313-618) U/L Total Protein 5.8 L 5.9 L (6.3-8.2) g/dL Albumin 3.1 L (3.5-5.0) g/dL Microbiology - Last 24 Hours (Table) 06/11/17 09:00 Fungal Culture - Preliminary Pleural Fluid 06/11/17 09:00 Acid Fast Bacilli Culture - Preliminary Pleural Fluid 06/11/17 09:00 Body Fluid Culture - Preliminary Pleural Fluid Assessment and Plan (1) Anemia Current Visit: Yes Status: Acute Priority: High Code(s): D64.9 - ANEMIA, UNSPECIFIED SNOMED Code(s): 588612052 (2) Non-Hodgkin lymphoma Current Visit: Yes Status: Acute Code(s): C85.90 - NON-HODGKIN LYMPHOMA, UNSPECIFIED, UNSPECIFIED SITE SNOMED Code(s): 284626251 (3) Pleural effusion, right Current Visit: Yes Status: Acute Priority: High Code(s): J90 - PLEURAL EFFUSION, NOT ELSEWHERE CLASSIFIED SNOMED Code(s): 70089687 Plan: Essentially await results from thoracentesis today. Check CBC and CMP in a.m. I appreciate oncology input. See orders otherwise. Time with Patient: Less than 30
[2017-06-11] MEDS: cloNIDine HCL 0.1 MG TAB PO SCH (20:59)
[2017-06-12] MEDS: SODIUM CHLORIDE 0.9% 1,000 ML IV SCH (03:11)
[2017-06-12] MEDS: ALBUTEROL NEBULIZED 2.5 MG/3 ML INHALATION PRN ×2 (03:36→11:47)
[2017-06-12 07:58] LABS: Mononuclear WBC,Body Fluid 88 %; Polynuclear WBC,Body Fluid 11 %; Total Cells Counted,Body Fluid 100
--- NOTE | 2017-06-12 08:19 | P.PN ---
Subjective Principal diagnosis: Status post thoracentesis. This is a continue present on a 56-year-old white female essentially admitted for pleural effusion. Initial indication shows transudative process. Cultures are otherwise pending. The patient states significant improvement. We will DC once cleared by consultants. Objective - Vital Signs Vital signs: Vital Signs Temp 98.0 F 06/12/17 06:50 Pulse 107 H 06/12/17 06:50 Resp 18 06/12/17 06:50 BP 108/60 06/12/17 06:50 Pulse Ox 94 L 06/12/17 06:50 Intake & Output 06/11/17 06/12/17 06/12/17 18:59 06:59 18:59 Intake Total 500 Balance 500 Intake: Oral 500 Other: # Voids 1 1 - Constitutional General appearance: Present: obese - EENT Eyes: Absent: abnormal pupil - Respiratory Respiratory: bilateral: CTA - Cardiovascular Rhythm: regular Heart sounds: normal: S1, S2 Abnormal Heart Sounds: Present: S3 Gallop - Psychiatric Psychiatric: Present: A&O x's 3 - Labs CBC & Chem 7: 06/11/17 08:25 06/11/17 08:25 Labs: Abnormal Lab Results - Last 24 Hours (Table) 06/11/17 06/11/17 06/11/17 Range/Units 08:25 08:25 08:25 RBC 3.27 L (3.80-5.40) m/uL Hgb 8.4 L (11.4-16.0) gm/dL Hct 27.2 L (34.0-46.0) % RDW 18.6 H (11.5-15.5) % Creatinine 0.40 L (0.52-1.04) mg/dL Alkaline Phosphatase 291 H (38-126) U/L Lactate Dehydrogenase 726 H (313-618) U/L Total Protein 5.8 L 5.9 L (6.3-8.2) g/dL Albumin 3.1 L (3.5-5.0) g/dL Microbiology - Last 24 Hours (Table) 06/11/17 09:00 Acid Fast Bacilli Smear - Final Pleural Fluid Acid Fast Bacilli Culture - Preliminary 06/11/17 09:00 Gram Stain - Preliminary Pleural Fluid Body Fluid Culture - Preliminary 06/11/17 09:00 Fungal Culture - Preliminary Pleural Fluid Assessment and Plan (1) Anemia Current Visit: Yes Status: Acute Priority: High Code(s): D64.9 - ANEMIA, UNSPECIFIED SNOMED Code(s): 912103663 (2) Non-Hodgkin lymphoma Current Visit: Yes Status: Acute Code(s): C85.90 - NON-HODGKIN LYMPHOMA, UNSPECIFIED, UNSPECIFIED SITE SNOMED Code(s): 905124497 (3) Pleural effusion, right Current Visit: Yes Status: Acute Priority: High Code(s): J90 - PLEURAL EFFUSION, NOT ELSEWHERE CLASSIFIED SNOMED Code(s): 57828533 Plan: At this time, it looks like it is more of a transudate of, nonmalignant process. However, pathology is still pending. We'll continue to follow and DC once cleared by consultants hopefully in the next 24 hours.
--- NOTE | 2017-06-12 08:58 | P.PN ---
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, hypertension, depression 06/12/2017, patient seen eval reexamined during the rounds she is status post right thoracentesis from yesterday 2.1 L of fluid has been removed her respiratory status has improved significantly patient has been evaluated by oncology service as well plan is to follow up with oncology on outpatient basis and likely evaluation for chemotherapy Ammann given presence of high LDH and total protein in pleural fluid fluid appears to be likely exudative and likely related to lymphoma flow cytomety and cytology however is pending 06/11/2017, patient seen eval reexamined during the rounds clinically patient is doing well awake and alert breathing comfortably at rest but get very short of breath on activity and exertion denies any chest pain does have intermittent dry cough and discussed with her at length about ultrasound finding and is finding on the CAT scan also discussed with the we'll proceed with a right thoracentesis, procedure detail side effect alternate event complication expressed explained to the patient and has been at length 56-year-old female seen evaluated examined on fourth floor, she is presented and admitted from the emergency department for progressive increased shortness breath of 2 week duration,Seems be worse with any exertion. She denies any chest pain. She does complain of some left leg pain and swelling. This is both present to her left proximal anterior lateral leg as well as her left calf region. She denies any known history DVT or PE. She states that she had her gallbladder out in February and they found to have a diagnosis of lymphoma, patient is being followed by Dr. Hernandez. This was reaffirmed last month when she is admitted with diverticulitis. She is followed up with oncology, Dr. Partida, and they apparently related that this is a slow-growing non-Hodgkin's lymphoma and no chemotherapy or radiation therapy is necessary at this time. She states that the difficulty in breathing as a new symptom. She has no previous known Cardiologic or pulmonary abnormalities. She denies any history of DVT or PE. No fevers or chills. Her spiral CT scan of the chest was negative for pulmonary embolism duplex ultrasound was also negative however patient has been found to have a large pleural effusion on the right side along with mediastinal hilar lymphadenopathy Objective - Vital Signs Vital signs: Vital Signs Temp 98.0 F 06/12/17 06:50 Pulse 107 H 06/12/17 06:50 Resp 18 06/12/17 06:50 BP 108/60 06/12/17 06:50 Pulse Ox 94 L 06/12/17 06:50 Intake & Output 06/11/17 06/12/17 06/12/17 18:59 06:59 18:59 Intake Total 500 Balance 500 Intake: Oral 500 Other: # Voids 1 1 - Exam GENERAL: The patient is well nourished and well hydrated. VITAL SIGNS: Heart rate, blood pressure, respiratory rate reviewed as recorded in nurse's notes. EYES: Pupils are round and reactive. Extraocular movements are intact. ENT: No external evidence of injury, swelling, or ecchymosis. Airway is patent. Throat is clear. NECK: Nontender. No swelling or evidence of injury. No subcutaneous emphysema. Trachea is midline. No thyroid mass. HEART: Tachycardic heart rate. Good peripheral pulses. LUNGS/CHEST: Dullness to percussion as well as decrease in air entry on the right side up to two third of the lung. No rales, rhonchi, or wheezes. No ecchymosis, subcutaneous emphysema, or tenderness. ABDOMEN: Abdomen soft without tenderness. No palpable masses or organomegaly. No peritoneal signs. No abdominal wall swelling or ecchymosis. EXTREMITIES: There is some tenderness and swelling noted primarily to the left leg over the left proximal anterior lateral leg as well as into the left calf. Normal muscle tone and function. No thoracolumbar tenderness. NEUROLOGIC: Sensation is grossly intact. Cranial nerve exam reveals face is symmetrical, tongue is midline, speech is clear. SKIN: No abrasions or ecchymosis is noted. No induration or masses noted. PSYCHIATRIC: Alert and oriented. Appropriate behavior and judgment. - Labs CBC & Chem 7: 06/11/17 08:25 06/11/17 08:25 Labs: Abnormal Lab Results - Last 24 Hours (Table) 06/11/17 06/11/17 06/11/17 Range/Units 08:25 08:25 08:25 RBC 3.27 L (3.80-5.40) m/uL Hgb 8.4 L (11.4-16.0) gm/dL Hct 27.2 L (34.0-46.0) % RDW 18.6 H (11.5-15.5) % Creatinine 0.40 L (0.52-1.04) mg/dL Alkaline Phosphatase 291 H (38-126) U/L Lactate Dehydrogenase 726 H (313-618) U/L Total Protein 5.8 L 5.9 L (6.3-8.2) g/dL Albumin 3.1 L (3.5-5.0) g/dL Microbiology - Last 24 Hours (Table) 06/11/17 09:00 Acid Fast Bacilli Smear - Final Pleural Fluid Acid Fast Bacilli Culture - Preliminary 06/11/17 09:00 Gram Stain - Preliminary Pleural Fluid Body Fluid Culture - Preliminary 06/11/17 09:00 Fungal Culture - Preliminary Pleural Fluid Assessment and Plan Assessment: Large right-sided pleural effusion Shortness of breath related to above Lymphoma Mediastinal hilar lymphadenopathy related to above Hypertension hypertensive cardiovascular disease Depression and generalized anxiety disorder Plan: Care plan discussed with the patient at length, reviewed ultrasound of the chest patient is status post right thoracentesis from 06/11/2017, in case patient discharged home will recommend follow-up in 1-2 weeks to monitor observe for reaccumulation of fluid Time with Patient: Greater than 30
[2017-06-12 09:28] LABS: Reticulocyte % 2.3 % (0.5-2.0)
[2017-06-12] MEDS: MULTIVITAMINS, THERA 1 EACH TAB PO SCH (12:55)
--- NOTE | 2017-06-12 13:23 | P.DS ---
Providers Date of admission: 06/09/17 23:48 Attending physician: Federico Muñoz Consults: 06/09/17 23:53 Consult Physician Routine Consulting Provider: John Lynne Consult Reason/Comments: New Pleural effusion Do you want consulting provider notified?: Yes 06/11/17 10:01 Consult Physician Routine Consulting Provider: Adiel Lovell Consult Reason/Comments: known to JAS, hr CA new plueral effusion Do you want consulting provider notified?: Yes Primary care physician: Federico Muñoz - Discharge Diagnosis(es) (1) Anemia Current Visit: Yes Status: Acute Priority: High (2) Non-Hodgkin lymphoma Current Visit: Yes Status: Acute (3) Pleural effusion, right Current Visit: Yes Status: Acute Priority: High Hospital Course: This is a discharge summary on a 56-yo With history of COPDfollicular B-cell lymphoma developed pleural effusion and had therapeutic/thoracentesis. The patient's laboratory results do show A transudate of process. However, overall cultures are still pending. The patient is now discharged in stable condition to follow-up with me in about 10 days Patient Condition at Discharge: Fair Plan - Discharge Summary New Discharge Prescriptions: No Action cloNIDine HCL [Catapres] 0.1 mg PO HS Multivitamins, Thera [Multivitamin (formulary)] 1 tab PO DAILY Acetaminophen Tab [Tylenol] 1,000 mg PO Q6HR PRN PRN Reason: Pain ALPRAZolam [Xanax] 0.5 mg PO TID PRN PRN Reason: Anxiety traMADol HCL [Ultram] 50 mg PO Q6HR PRN PRN Reason: Pain Ibuprofen [Motrin Ib] 400 mg PO Q6HR PRN PRN Reason: Pain Albuterol Sulfate [Proair Hfa] 2 puff INHALATION RT-Q6H PRN PRN Reason: Shortness Of Breath Discharge Medication List Multivitamins, Thera [Multivitamin (formulary)] 1 tab PO DAILY 02/14/17 [History ] cloNIDine HCL [Catapres] 0.1 mg PO HS 02/14/17 [History] ALPRAZolam [Xanax] 0.5 mg PO TID PRN 05/09/17 [History] Acetaminophen Tab [Tylenol] 1,000 mg PO Q6HR PRN 05/09/17 [History] Albuterol Sulfate [Proair Hfa] 2 puff INHALATION RT-Q6H PRN 06/09/17 [History] Ibuprofen [Motrin Ib] 400 mg PO Q6HR PRN 06/09/17 [History] traMADol HCL [Ultram] 50 mg PO Q6HR PRN 06/09/17 [History] Follow up Appointment(s)/Referral(s): Chava Partida MD [STAFF PHYSICIAN] - 06/24/17 9:15 am John Lynne MD [STAFF PHYSICIAN] - 1 Week Federico Muñoz MD [Primary Care Provider] - 10 Days Discharge Disposition: HOME SELF-CARE
[2017-06-12 14:17] VITALS: BP 116/70; PULSE 114; RESP 20; TEMP 97.7
[2017-06-12 16:40] LABS: Iron Saturation 10.14 (12.00-45.00)
== END 2017-06-12 15:13 | disposition home or self-care (01) | DRG 187 ==
LOC: EC 18:27 → 4MS4W 23:48
PROVIDERS: ADMIT Family Medicine; ATTEND Family Medicine
PROC: 0W993ZZ Drainage of Right Pleural Cavity, Percutaneous Approach (ICD-10-PCS; principal; 2017-06-11)
DX: J90 Pleural effusion, not elsewhere classified (principal); C82.09 Follicular lymphoma grade I, extranodal and solid organ sites; I11.9 Hypertensive heart disease without heart failure; D64.9 Anemia, unspecified; E66.8 Other obesity; F32.9 Major depressive disorder, single episode, unspecified; F41.1 Generalized anxiety disorder; J44.9 Chronic obstructive pulmonary disease, unspecified; R09.02 Hypoxemia; R59.0 Localized enlarged lymph nodes; Z68.29 Body mass index [BMI] 29.0-29.9, adult; Z90.49 Acquired absence of other specified parts of digestive tract; Z87.891 Personal history of nicotine dependence
CPT/HCPCS: 36415; 71045; 71046; 71275; 76604; 80053; 82550; 82553; 82607; 82728; 82747; 82945; 83540; 83550; 83615; 83880; 84155; 84157; 84484; 85025; 85027; 85045; 85379; 85610; 85730; 87070; 87102; 87116; 87205; 87206; 87252; 87496; 87498; 87502; 87529; 87634; 87798; 88108; 88305; 88341; 88342; 89050; 93005; 93970; 94640; 94760; 96374; 99285

== ENCOUNTER 2017-07-15 09:41 | Inpatient (IN) | payer OTHER ==
[2017-07-15] MEDS ORDERED: LEVOFLOXACIN 750MG-D5W PMX 750 MG in DEXTROSE/WATER 1 150ML.BAG IVPB STA (10:01)
[2017-07-15] MEDS ORDERED: SODIUM CHLORIDE 0.9% 1,000 ML IV STA (10:01)
[2017-07-15] MEDS ORDERED: IBUPROFEN 600 MG TAB PO STA (10:03)
[2017-07-15] MEDS ORDERED: ACETAMINOPHEN TAB 500 MG TAB PO STA (10:03)
--- NOTE | 2017-07-15 10:09 | ED ---
General Adult HPI - General Chief complaint: Shortness of Breath Stated complaint: SOB Time Seen by Provider: 07/15/17 09:45 Source: patient, RN notes reviewed Mode of arrival: wheelchair Limitations: no limitations - History of Present Illness Initial comments: This is a 36-year-old female presents emergency room with a past medical history significant for lymphoma and pleural effusions. Patient states last time she came in for chemo she was so short of breath they sent to the emergency room and she was admitted and had 1.8 L removed off her lung. Patient states she was coming in again to go to get her chemo treatment and she was so short of breath that they sent her to the emergency department. Patient states his shortness of breath started in the middle the night. Patient states she does feel warm but she can take her temperature. Patient did have 102 temperature out in triage. Patient denies any chest pain or palpitations. Patient states she is short of breath. Patient states her shortness of breath is never gone away completely but last night he got considerably worse. - Related Data Home Medications Medication Instructions Recorded Confirmed Multivitamins, Thera [Multivitamin 1 tab PO DAILY 02/14/17 07/15/17 (formulary)] cloNIDine HCL [Catapres] 0.1 mg PO HS 02/14/17 07/15/17 ALPRAZolam [Xanax] 0.5 mg PO TID PRN 05/09/17 07/15/17 Acetaminophen Tab [Tylenol] 1,000 mg PO Q6HR PRN 05/09/17 07/15/17 Albuterol Sulfate [Proair Hfa] 2 puff INHALATION RT-Q6H PRN 06/09/17 07/15/17 Ibuprofen [Motrin Ib] 400 mg PO Q6HR PRN 06/09/17 07/15/17 traMADol HCL [Ultram] 50 mg PO Q6HR PRN 06/09/17 07/15/17 Previous Rx's Medication Instructions Recorded Ipratropium-Albuterol Nebulize 3 ml INHALATION RT-TID #90 07/06/17 [Duoneb 0.5 mg-3 mg/3 ml Soln] ampul.neb Allergies Allergy/AdvReac Type Severity Reaction Status Date / Time No Known Allergies Allergy Verified 07/15/17 10:42 Review of Systems ROS Statement: Those systems with pertinent positive or pertinent negative responses have been documented in the HPI. ROS Other: All systems not noted in ROS Statement are negative. Past Medical History Past Medical History: Cancer, Hypertension Additional Past Medical History / Comment(s): non hodgkins lymphoma diagnosis February 2017 stage 3, diverticulitis History of Any Multi-Drug Resistant Organisms: None Reported Past Surgical History: Cholecystectomy Additional Past Surgical History / Comment(s): eye surgery at age 6 years Past Anesthesia/Blood Transfusion Reactions: No Reported Reaction Past Psychological History: Anxiety Smoking Status: Former smoker Past Alcohol Use History: None Reported Past Drug Use History: None Reported - Past Family History Mother History Unknown: Yes Additional Family Medical History / Comment(s): adopted General Exam - General Exam Comments Initial Comments: GENERAL: Patient is well-developed and well-nourished. Patient is nontoxic and well- hydrated and is in mild distress. ENT: Neck is soft and supple. No significant lymphadenopathy is noted. Oropharynx is clear. Moist mucous membranes. Neck has full range of motion without eliciting any pain. EYES: The sclera were anicteric and conjunctiva were pink and moist. Extraocular movements were intact and pupils were equal round and reactive to light. Eyelids were unremarkable. PULMONARY: Unlabored respirations. Good breath sounds bilaterally. No audible rales rhonchi or wheezing was noted. CARDIOVASCULAR: There is a regular rate and rhythm without any murmurs gallops or rubs. ABDOMEN: Soft and nontender with normal bowel sounds. No palpable organomegaly was noted. There is no palpable pulsatile mass. SKIN: Skin is clear with no lesions or rashes and otherwise unremarkable. NEUROLOGIC: Patient is alert and oriented x3. Cranial nerves II through XII are grossly intact. Motor and sensory are also intact. Normal speech, volume and content. Symmetrical smile. MUSCULOSKELETAL: Normal extremities with adequate strength and full range of motion. No lower extremity swelling or edema. No calf tenderness. LYMPHATICS: No significant lymphadenopathy is noted PSYCHIATRIC: Normal psychiatric evaluation. Normal interpersonal interactions appears functionally intact in deals appropriately with others. No signs of depression. No signs of anxiety. Limitations: no limitations Course Vital Signs 07/15/17 07/15/17 07/15/17 09:46 10:13 10:57 Temperature 102.2 F H 100.2 F H Pulse Rate 147 H 137 H 126 H Respiratory 22 22 20 Rate Blood Pressure 134/74 118/70 120/69 O2 Sat by Pulse 88 L 93 L 96 Oximetry Medical Decision Making - Medical Decision Making EKG shows sinus tachycardia at 130 bpm PA interval 124 Brady 76 QT interval is 284 QTC is 4:30. Patient's EKG is compared to an old EKG no acute abnormalities are noted. Chest x-ray shows a large pleural effusion which is reaccumulated since her last visit. Patient continues to be short of breath. Patient received Levaquin in the emergency department because the fever even though no obvious source is noted. Patient is considered immunocompromised because it chemo. - Lab Data Result diagrams: 07/15/17 10:07 07/15/17 10:07 Lab Results 07/15/17 07/15/17 07/15/17 Range/Units 10:07 10: 10:07 WBC 7.5 (3.8-10.6) k/uL RBC 3.31 L (3.80-5.40) m/uL Hgb 8.6 L (11.4-16.0) gm/dL Hct 27.5 L (34.0-46.0) % MCV 83.3 (80.0-100.0) fL MCH 26.2 (25.0-35.0) pg MCHC 31.4 (31.0-37.0) g/dL RDW 18.8 H (11.5-15.5) % Plt Count 338 (150-450) k/uL Neutrophils % 93 % Lymphocytes % 4 % Monocytes % 1 % Eosinophils % 1 % Basophils % 0 % Neutrophils # 7.0 (1.3-7.7) k/uL Lymphocytes # 0.3 L (1.0-4.8) k/uL Monocytes # 0.1 (0-1.0) k/uL Eosinophils # 0.0 (0-0.7) k/uL Basophils # 0.0 (0-0.2) k/uL Hypochromasia Moderate Poikilocytosis Slight Anisocytosis Slight Microcytosis Slight PT (9.0-12.0) sec INR (<1.2) APTT (22.0-30.0) sec Sodium 136 L (137-145) mmol/L Potassium 3.5 (3.5-5.1) mmol/L Chloride 93 L (98-107) mmol/L Carbon Dioxide 32 H (22-30) mmol/L Anion Gap 11 mmol/L BUN 14 (7-17) mg/dL Creatinine 0.48 L (0.52-1.04) mg/dL Est GFR (CKD-EPI)AfAm >90 (>60 ml/min/1.73 sqM) Est GFR (CKD-EPI)NonAf >90 (>60 ml/min/1.73 sqM) Glucose 93 (74-99) mg/dL Plasma Lactic Acid Marc (0.7-2.0) mmol/L Calcium 8.8 (8.4-10.2) mg/dL Magnesium 1.8 (1.6-2.3) mg/dL Total Bilirubin 0.4 (0.2-1.3) mg/dL AST 45 H (14-36) U/L ALT 30 (9-52) U/L Alkaline Phosphatase 207 H (38-126) U/L Total Creatine Kinase <20 L (30-135) U/L CK-MB (CK-2) <0.2 (0.0-2.4) ng/mL CK-MB (CK-2) Rel Index Troponin I <0.012 (0.000-0.034) ng/mL Total Protein 5.2 L (6.3-8.2) g/dL Albumin 3.0 L (3.5-5.0) g/dL Influenza Type A RNA (Not Detectd) Influenza Type B (PCR) (Not Detectd) 07/15/17 07/15/17 07/15/17 Range/Units 10:07 10:07 10:07 WBC (3.8-10.6) k/uL RBC (3.80-5.40) m/uL Hgb (11.4-16.0) gm/dL Hct (34.0-46.0) % MCV (80.0-100.0) fL MCH (25.0-35.0) pg MCHC (31.0-37.0) g/dL RDW (11.5-15.5) % Plt Count (150-450) k/uL Neutrophils % % Lymphocytes % % Monocytes % % Eosinophils % % Basophils % % Neutrophils # (1.3-7.7) k/uL Lymphocytes # (1.0-4.8) k/uL Monocytes # (0-1.0) k/uL Eosinophils # (0-0.7) k/uL Basophils # (0-0.2) k/uL Hypochromasia Poikilocytosis Anisocytosis Microcytosis PT 10.8 (9.0-12.0) sec INR 1.1 (<1.2) APTT 27.6 (22.0-30.0) sec Sodium (137-145) mmol/L Potassium (3.5-5.1) mmol/L Chloride (98-107) mmol/L Carbon Dioxide (22-30) mmol/L Anion Gap mmol/L BUN (7-17) mg/dL Creatinine (0.52-1.04) mg/dL Est GFR (CKD-EPI)AfAm (>60 ml/min/1.73 sqM) Est GFR (CKD-EPI)NonAf (>60 ml/min/1.73 sqM) Glucose (74-99) mg/dL Plasma Lactic Acid Marc 1.5 (0.7-2.0) mmol/L Calcium (8.4-10.2) mg/dL Magnesium (1.6-2.3) mg/dL Total Bilirubin (0.2-1.3) mg/dL AST (14-36) U/L ALT (9-52) U/L Alkaline Phosphatase (38-126) U/L Total Creatine Kinase (30-135) U/L CK-MB (CK-2) (0.0-2.4) ng/mL CK-MB (CK-2) Rel Index Troponin I (0.000-0.034) ng/mL Total Protein (6.3-8.2) g/dL Albumin (3.5-5.0) g/dL Influenza Type A RNA Not Detected (Not Detectd) Influenza Type B (PCR) Not Detected (Not Detectd) Disposition Clinical Impression: Pleural effusion, Dyspnea, Fever, unknown origin Disposition: ADMITTED IP TO THIS HOSP Referrals: Federico Muñoz MD [Primary Care Provider] - 1-2 days Time of Disposition: 11:37
[2017-07-15 10:23] LABS: Anisocytosis Slight; Basophils % (A) 0 %; Eosinophils % (A) 1 %; HCT 27.5 % (34.0-46.0); HGB 8.6 gm/dL (11.4-16.0); Hypochromasia Moderate; Lymphocytes # (A) 0.3 k/uL (1.0-4.8); Lymphocytes % (A) 4 %; MCH 26.2 pg (25.0-35.0); MCHC 31.4 g/dL (31.0-37.0); MCV 83.3 fL (80.0-100.0); Mean Platelet Volume 8.3; Microcytosis Slight; Monocytes # (A) 0.1 k/uL (0-1.0); Monocytes % (A) 1 %; Neutrophils % (A) 93 %; Platelet Count 338 k/uL (150-450); Poikilocytosis Slight; RBC 3.31 m/uL (3.80-5.40); RDW 18.8 % (11.5-15.5); WBC 7.5 k/uL (3.8-10.6)
--- NOTE | 2017-07-15 10:25 | XR ---
EXAMINATION TYPE: XR chest 2V DATE OF EXAM: 07/15/2017 COMPARISON: Chest x-ray July 05, 2017 HISTORY: History of lymphoma with worsening shortness of breath TECHNIQUE: Frontal and lateral views of the chest are obtained. FINDINGS: There is small left pleural effusion new from prior. There is moderate-sized right pleura l effusion increased in size from prior. There is associated bibasilar atelectasis. The cardiac silho uette size is likely still within normal limits. The osseous structures are intact. IMPRESSION: Increasing size moderate right pleural effusion and new small left pleural effusion with associated right greater than left bibasilar atelectasis and/or infiltrate.
[2017-07-15 10:30] LABS: INR 1.1 (<1.2); Partial Thromboplastin Time 27.6 sec (22.0-30.0); Prothrombin Time 10.8 sec (9.0-12.0)
[2017-07-15 10:37] LABS: ALT 30 U/L (9-52); AST 45 U/L (14-36); Alkaline Phosphatase 207 U/L (38-126); Anion Gap 11 mmol/L; Blood Urea Nitrogen 14 mg/dL (7-17); Calcium 8.8 mg/dL (8.4-10.2); Carbon Dioxide 32 mmol/L (22-30); Chloride 93 mmol/L (98-107); Creatine Kinase <20 U/L (30-135); Glucose 93 mg/dL (74-99); Magnesium 1.8 mg/dL (1.6-2.3); Potassium 3.5 mmol/L (3.5-5.1); Sodium 136 mmol/L (137-145); Total Bilirubin 0.4 mg/dL (0.2-1.3); Total Protein 5.2 g/dL (6.3-8.2)
[2017-07-15 10:49] LABS: Creatine Kinase MB <0.2 ng/mL (0.0-2.4); Troponin I <0.012 ng/mL (0.000-0.034)
[2017-07-15] MEDS ORDERED: PNEUMONIA PROTOCOL UTILIZED 1 EACH MISC PO PRN (11:37)
[2017-07-15] MEDS ORDERED: PIPERACILLIN-TAZOBACTAM 3.375 GM in DEXTROSE/WATER 1 50ML.BAG IVPB STA (11:37)
[2017-07-15] MEDS: ALBUTEROL NEBULIZED 2.5 MG/3 ML INHALATION PRN ×2 (12:06→16:29)
[2017-07-15] MEDS ORDERED: INFLUENZA VACCINE (6 MOS+) 60 MCG/0.5 ML SYRINGE IM ONE (14:38)
[2017-07-15] MEDS: PIPERACILLIN-TAZOBACTAM 3.375 GM in DEXTROSE/WATER 1 50ML.BAG IVPB SCH (15:40)
[2017-07-15 15:41] VITALS: BMI 27.3
--- NOTE | 2017-07-15 17:36 | P.CONS ---
History of Present Illness - Reason for Consult Consult date: 07/15/17 follicular lymphoma, curently in treatment Requesting physician: Barber Nguyen - Chief Complaint LOYD - History of Present Illness Mrs. Castillo is a pleasant female pt of Dr. Partida. Feb 2017 pt presented with c/o progressive RUQ pain, and SOB, CTA negative for PE, but enlarged mediastinal and bronchial lymph nodes were noted, CT AP fluid showed around gallbladder, enlarged celiac and mesenteric nodes, US showed wall thickening of the gallbladder with gallstones, had laparoscopic cholecystectomy , gallbladder pathology was positive for low-grade B-cell non-Hodgkin's lymphoma , [facility] confirmed diagnosis and further defined the NHL as low-grade follicular type. Pt was nearly asymptomatic when she saw Dr. Partida for the 1st time in Mar 2017, plan was for observation, treatment if she became symptomatic. In Apr pt was admitted and treated for a diagnosis of diverticulitis. In June she was admitted and treated for pleural effusion, cytology was non-diagnostic for involvement with malignancy, fluid accumulation was felt to be due to mechanical obstruction. Pt was scheduled for treatment yesterday and today with Rituxan and Bendeka. She got treatment yesterday, this AM she had fever, then rigors, this persisted so she contacted the office and was instructed to be evaluated in ER, she had 102.2F temp on admit, pancultures collected, empiric zosyn ordered. CXR showing re-accumulation of fluid on the right, Dr. Lynne consulted. Pt denies oral irritation, vomiting, cough is persistent but not progressive, dry, her chest wall can be sore with coughing, no feeling of heart racing, SOB, abd distention, dysuria, having a BM QOD, can have diarrhea occasionally, denies lower leg swelling, her left thigh has persistent and progressive swelling and some tenderness, denies injury, loss of strength, numbness or tingling, no bleeding, has chronic low back pain, stable. Review of Systems 14 point ROS as stated in HPI Past Medical History Past Medical History: Cancer, Hypertension Additional Past Medical History / Comment(s): Nonhodgkins lymphoma stage III diagnosed February,, R side pleural effusions/thoracentesis twice, pt had first chemo and immunotherapy 07/14/17, anemia, diverticulitis, L eye blind since , bronchitis when young. History of Any Multi-Drug Resistant Organisms: None Reported Past Surgical History: Cholecystectomy, Uterine Ablation Additional Past Surgical History / Comment(s): R sided thoracentesis twice with last time done on 07/03/17, R eye surgery when 6 yrs old-had tumor behind eye and detached retina. Past Anesthesia/Blood Transfusion Reactions: No Reported Reaction Additional Past Anesthesia/Blood Transfusion Reaction / Comm: Pt recently received blood without reaction. Past Psychological History: No Psychological Hx Reported Smoking Status: Former smoker Past Drug Use History: None Reported - Past Family History Mother History Unknown: Yes Additional Family Medical History / Comment(s): Pt is adopted and does not know parents PMH. Medications and Allergies Home Medications Medication Instructions Recorded Confirmed Type Multivitamins, Thera [Multivitamin 1 tab PO DAILY 02/14/17 07/15/17 History (formulary)] cloNIDine HCL [Catapres] 0.1 mg PO HS 02/14/17 07/15/17 History ALPRAZolam [Xanax] 0.5 mg PO TID PRN 05/09/17 07/15/17 History Acetaminophen Tab [Tylenol] 1,000 mg PO Q6HR PRN 05/09/17 07/15/17 History Albuterol Sulfate [Proair Hfa] 2 puff INHALATION RT-Q6H PRN 06/09/17 07/15/17 History Ibuprofen [Motrin Ib] 400 mg PO Q6HR PRN 06/09/17 07/15/17 History traMADol HCL [Ultram] 50 mg PO Q6HR PRN 06/09/17 07/15/17 History Ipratropium-Albuterol Nebulize 3 ml INHALATION RT-TID #90 07/06/17 07/15/17 Rx [Duoneb 0.5 mg-3 mg/3 ml Soln] ampul.neb Ondansetron [Zofran] 4 mg PO Q6HR PRN 07/15/17 07/15/17 History Allergies Allergy/AdvReac Type Severity Reaction Status Date / Time No Known Allergies Allergy Verified 07/15/17 14:31 Physical Exam Vitals: Vital Signs Temp Pulse Pulse Resp BP BP Pulse Ox 07/15/17 15:15 20 07/15/17 14:50 98.1 F 102 H 20 114/72 97 07/15/17 14:08 98.6 F 105 H 18 105/60 96 07/15/17 12:20 111 H 07/15/17 12:08 112 H 07/15/17 10:57 100.2 F H 126 H 20 120/69 96 07/15/17 10:13 137 H 22 118/70 93 L 07/15/17 09:46 102.2 F H 147 H 22 134/74 88 L Intake and Output 07/15/17 07/15/17 07/15/17 06:59 14:59 22:59 Other: Weight 63.503 kg 63.503 kg - Constitutional General appearance: average body habitus, cooperative, no acute distress - EENT left eye blindness, cloudy conjunctiva/cornea Eyes: anicteric sclerae, EOMI ENT: hearing grossly normal, normal oropharynx - Neck right posterior cervical shotty adenopathy, right groin [address] palpated, soft, fixed, about 2cm-2.5cm Neck: lymphadenopathy - Respiratory Respiratory: left: diminished (bases bilaterally, R>L) - Cardiovascular Heart sounds: normal: S1, S2 leg Peripheral Edema: bilateral: None - Gastrointestinal General gastrointestinal: no absent bowel sounds, no decreased bowel sounds, no distended, no hepatomegaly, no hyperactive bowel sounds, normal bowel sounds, no organomegaly, no rigid, no scaphoid, soft, no splenomegaly, no tenderness, no umbilical hernia, no ventral hernia - Integumentary Integumentary: normal - Neurologic Neurologic: CNII-XII intact - Musculoskeletal Left lateral thigh firm, feels tight, slight discomfort with deep palpation, looks larger in size when compared to the right, no lower extremity swelling Musculoskeletal: strength equal bilaterally - Psychiatric Psychiatric: A&O x's 3, appropriate affect, intact judgment & insight Results CBC & Chem 7: 07/15/17 10:07 07/15/17 10:07 Labs: Abnormal Lab Results - Last 24 Hours (Table) 07/15/17 07/15/17 07/15/17 Range/Units 10:07 10:07 10:07 RBC 3.31 L (3.80-5.40) m/uL Hgb 8.6 L (11.4-16.0) gm/dL Hct 27.5 L (34.0-46.0) % RDW 18.8 H (11.5-15.5) % Lymphocytes # 0.3 L (1.0-4.8) k/uL Sodium 136 L (137-145) mmol/L Chloride 93 L (98-107) mmol/L Carbon Dioxide 32 H (22-30) mmol/L Creatinine 0.48 L (0.52-1.04) mg/dL AST 45 H (14-36) U/L Alkaline Phosphatase 207 H (38-126) U/L Total Creatine Kinase <20 L (30-135) U/L Total Protein 5.2 L (6.3-8.2) g/dL Albumin 3.0 L (3.5-5.0) g/dL Chest x-ray: report reviewed Assessment and Plan (1) Fever, unknown origin Narrative/Plan: Pancultures pending, empiric abx ordered. Could possibly be tumor fever, tumor lysis labs ordered. Agree with current management Current Visit: Yes Status: Acute Priority: High Code(s): R50.9 - FEVER, UNSPECIFIED SNOMED Code(s): 2103488 (2) Anemia Narrative/Plan: Stable, related to malignancy and treatment. Iron studies last hospitalization showed elevated ferritin so, no iron supplementation is recommended. No transfusion needed at this time Current Visit: No Status: Acute Priority: Medium Code(s): D64.9 - ANEMIA, UNSPECIFIED SNOMED Code(s): 674700566 (3) Follicular lymphoma grade I of extranodal and solid organ sites Narrative/Plan: Pt was due for day 2 of cycle 1 of Rituxan and Bendeka. Plan is to continue treatment once current complaints treated and resoled. Pt denies any side effects related to the treatment. Current Visit: Yes Status: Chronic Priority: High Code(s): C82.09 - FOLLICULAR LYMPHOMA GRADE I, EXTRNOD AND SOLID ORGAN SITES SNOMED Code(s): 176694465 (4) Left leg swelling Narrative/Plan: US ordered for left thigh swelling/firmness Current Visit: Yes Status: Acute Priority: Medium Code(s): M79.89 - OTHER SPECIFIED SOFT TISSUE DISORDERS SNOMED Code(s): 952601422 (5) Pleural effusion, right Narrative/Plan: Dr. Lynne consulted for evaluation and recommendations. Pt may clinically benefit from thoracentesis Current Visit: Yes Status: Acute Priority: High Code(s): J90 - PLEURAL EFFUSION, NOT ELSEWHERE CLASSIFIED SNOMED Code(s): 86387607
[2017-07-15 18:14] LABS: Phosphorus 4.7 mg/dL (2.5-4.5); Uric Acid 5.6 mg/dL (3.7-7.4)
--- NOTE | 2017-07-15 18:38 | P.CNPUL ---
History of Present Illness Consult date: 07/15/17 Reason for consult: pleural effusion Chief complaint: Shortness of breath and fever History of present illness: Ms. Dayana Castillo is a 56-year-old female well-known to me patient has a history of recently diagnosed lymphoma she has been found to have recurrent pleural effusion has been 2 times and significant amount of fluid has been removed patient has been admitted into the hospital as after chemotherapy developed spiking fever Patient back in Feb 2017 pt presented with c/o progressive RUQ pain, and SOB, CTA negative for PE, but enlarged mediastinal and bronchial lymph nodes were noted, CT AP fluid showed around gallbladder, enlarged celiac and mesenteric nodes, US showed wall thickening of the gallbladder with gallstones, had laparoscopic cholecystectomy, gallbladder pathology was positive for low-grade B -cell non-Hodgkin's lymphoma, [facility] confirmed diagnosis and further defined the NHL as low-grade follicular type. Pt was nearly asymptomatic and was elected for observation, In Apr and in June she was admitted and treated for pleural effusion, cytology was non-diagnostic for involvement with malignancy, fluid accumulation was felt to be due to mechanical obstruction. Pt patient underwent treatment yesterday and today with Rituxan and Bendeka. She got treatment yesterday, this AM she had fever, then rigors, this persisted so she contacted the office and was instructed to be evaluated in ER, she had 102.2F temp on admit, pancultures collected, empiric zosyn ordered. CXR showing re-accumulation of fluid on the right, Pt denies oral irritation, vomiting, cough is persistent but not progressive, dry, her chest wall can be sore with coughing, no feeling of heart racing, SOB, abd distention, dysuria, having a BM QOD, can have diarrhea occasionally, denies lower leg swelling, her left thigh has persistent and progressive swelling and some tenderness, denies injury, loss of strength, numbness or tingling, no bleeding, has chronic low back pain, stable. Review of Systems All systems: negative Past Medical History Past Medical History: Cancer, Hypertension Additional Past Medical History / Comment(s): Nonhodgkins lymphoma stage III diagnosed February,, R side pleural effusions/thoracentesis twice, pt had first chemo and immunotherapy 07/14/17, anemia, diverticulitis, L eye blind since , bronchitis when young. History of Any Multi-Drug Resistant Organisms: None Reported Past Surgical History: Cholecystectomy, Uterine Ablation Additional Past Surgical History / Comment(s): R sided thoracentesis twice with last time done on 07/03/17, R eye surgery when 6 yrs old-had tumor behind eye and detached retina. Past Anesthesia/Blood Transfusion Reactions: No Reported Reaction Additional Past Anesthesia/Blood Transfusion Reaction / Comment(s): Pt recently received blood without reaction. Past Psychological History: No Psychological Hx Reported Smoking Status: Former smoker Past Drug Use History: None Reported - Past Family History Mother History Unknown: Yes Additional Family Medical History / Comment(s): Pt is adopted and does not know parents PMH. Medications and Allergies Home Medications Medication Instructions Recorded Confirmed Type Multivitamins, Thera [Multivitamin 1 tab PO DAILY 02/14/17 07/15/17 History (formulary)] cloNIDine HCL [Catapres] 0.1 mg PO HS 02/14/17 07/15/17 History ALPRAZolam [Xanax] 0.5 mg PO TID PRN 05/09/17 07/15/17 History Acetaminophen Tab [Tylenol] 1,000 mg PO Q6HR PRN 05/09/17 07/15/17 History Albuterol Sulfate [Proair Hfa] 2 puff INHALATION RT-Q6H PRN 06/09/17 07/15/17 History Ibuprofen [Motrin Ib] 400 mg PO Q6HR PRN 06/09/17 07/15/17 History traMADol HCL [Ultram] 50 mg PO Q6HR PRN 06/09/17 07/15/17 History Ipratropium-Albuterol Nebulize 3 ml INHALATION RT-TID #90 07/06/17 07/15/17 Rx [Duoneb 0.5 mg-3 mg/3 ml Soln] ampul.neb Ondansetron [Zofran] 4 mg PO Q6HR PRN 07/15/17 07/15/17 History Allergies Allergy/AdvReac Type Severity Reaction Status Date / Time No Known Allergies Allergy Verified 07/15/17 14:31 Physical Exam Vitals: Vital Signs Temp Pulse Pulse Resp BP BP Pulse Ox 07/15/17 16:38 109 H 07/15/17 16:30 107 H 07/15/17 15:15 20 07/15/17 14:50 98.1 F 102 H 20 114/72 97 07/15/17 14:08 98.6 F 105 H 18 105/60 96 07/15/17 12:20 111 H 07/15/17 12:08 112 H 07/15/17 10:57 100.2 F H 126 H 20 120/69 96 07/15/17 10:13 137 H 22 118/70 93 L 07/15/17 09:46 102.2 F H 147 H 22 134/74 88 L Intake and Output 07/15/17 07/15/17 07/15/17 06:59 14:59 22:59 Other: # Voids 1 Weight 63.503 kg 63.503 kg - Constitutional General appearance: average body habitus, cooperative, no acute distress - EENT left eye blindness, cloudy conjunctiva/cornea Eyes: anicteric sclerae, EOMI ENT: hearing grossly normal, normal oropharynx - Neck right posterior cervical shotty adenopathy, right groin [address] palpated, soft, fixed, about 2cm-2.5cm Neck: lymphadenopathy - Respiratory Respiratory: Good air entry bilaterally is present upper part slight decrease in air entry is present at the bases on the right side - Cardiovascular Heart sounds: normal: S1, S2 leg Peripheral Edema: bilateral: None - Gastrointestinal General gastrointestinal: no absent bowel sounds, no decreased bowel sounds, no distended, no hepatomegaly, no hyperactive bowel sounds, normal bowel sounds, no organomegaly, no rigid, no scaphoid, soft, no splenomegaly, no tenderness, no umbilical hernia, no ventral hernia - Integumentary Integumentary: normal - Neurologic Neurologic: CNII-XII intact - Musculoskeletal Left lateral thigh firm, feels tight, slight discomfort with deep palpation, looks larger in size when compared to the right, no lower extremity swelling Musculoskeletal: strength equal bilaterally - Psychiatric Psychiatric: A&O x's 3, appropriate affect, intact judgment & insight Results - Laboratory Findings CBC and BMP: 07/15/17 10:07 07/15/17 10:07 PT/INR, D-dimer PT 10.8 sec (9.0-12.0) 07/15/17 10:07 INR 1.1 (<1.2) 07/15/17 10:07 Abnormal lab findings: Abnormal Labs 07/15/17 07/15/17 07/15/17 10:07 10:07 10:07 RBC 3.31 L Hgb 8.6 L Hct 27.5 L RDW 18.8 H Lymphocytes # 0.3 L Sodium 136 L Chloride 93 L Carbon Dioxide 32 H Creatinine 0.48 L Phosphorus AST 45 H Alkaline Phosphatase 207 H Total Creatine Kinase <20 L Total Protein 5.2 L Albumin 3.0 L 07/15/17 17:58 RBC Hgb Hct RDW Lymphocytes # Sodium Chloride Carbon Dioxide Creatinine Phosphorus 4.7 H AST Alkaline Phosphatase Total Creatine Kinase Total Protein Albumin - Diagnostic Findings Chest x-ray: report reviewed, image reviewed (Findings as noted above) Assessment and Plan Assessment: Right-sided recurrent pleural effusion related to lymphoma Fever of unknown region likely related to tumor lysis as discussed with oncology service Chronic anemia I'll irregular lymphoma grade 1 Left leg swelling Plan: Agree with broad-spectrum antibiotics and pancultured Follow-up on ultrasound of lower extremities Order ultrasound of the chest if significant effusions present consider thoracentesis Further recommendations pending plan of care as per clinical response of the patient Time with Patient: Greater than 30
[2017-07-15] MEDS: cloNIDine HCL 0.1 MG TAB PO SCH (21:04)
[2017-07-15] MEDS ORDERED: ALPRAZolam 0.5 MG TAB PO PRN (21:14)
[2017-07-15] MEDS ORDERED: IBUPROFEN 200 MG TAB PO PRN (22:01)
[2017-07-15] MEDS: traMADol 50 MG TAB PO PRN (22:12)
[2017-07-15] MEDS: TEMAZEPAM 30 MG CAP PO PRN (22:14)
[2017-07-15] MEDS: ACETAMINOPHEN TAB 500 MG TAB PO PRN (22:14)
[2017-07-16] MEDS: PIPERACILLIN-TAZOBACTAM 3.375 GM in DEXTROSE/WATER 1 50ML.BAG IVPB SCH ×3 (00:16→16:04)
--- NOTE | 2017-07-16 01:05 | US ---
EXAMINATION TYPE: US extremity nonvasc mass LT DATE OF EXAM: 07/15/2017 COMPARISON: NONE CLINICAL HISTORY: left lateral thigh firmness, ? mass; patient stated left lateral thigh firmness, sw elling x 2 months; follicular lymphoma; just started on chemotherapy Left lateral thigh US: hypoechoic edema channels are noted; a hypoechoic, lobular oval mass is noted anteriorly and superiorly = 1.6 x 1.1 x 0.9cm, but no associated vascularity is present. Mid and Lo wer left lateral thigh a complex fluid area is noted = 8.6 x 5.6 x 0.5cm. Left CFV and Femoral Vein are patent by color flow and PW Doppler. Multiple left groin nodes are imaged with largest = 2.6. x 2.6 x 1.6cm. IMPRESSION: There are enlarged left inguinal lymph nodes. There is a oval-shaped 16 x 9 mm hypoechoi c area in the lateral upper left thigh in the area of concern. There appears to be some posterior enh ancement and this could be a chronic hematoma. This was not vascular. A solid tumor is not excluded.
[2017-07-16] MEDS: IPRATROPIUM-ALBUTEROL 3 ML NEB INHALATION SCH ×3 (07:43→19:08)
--- NOTE | 2017-07-16 07:52 | P.HPIM ---
History of Present Illness H&P Date: 07/16/17 Chief Complaint: Shortness of breath. This is a history and physical on a 56-year-old white female who is undergoing treatment for follicular lymphoma and has struggled with significant shortness of breath. She has presented again with pleural effusion. I do question whether she does need recurrent thoracentesis. She had summer symptomatology less than 2 months ago. No significant nausea or vomiting. Some dyspnea obviously is stated. Chest x-ray is now pending. Appreciate pulmonology and oncology support. Review of Systems Constitutional: Reports as per HPI, Denies fatigue Eyes: denies blurred vision, denies pain Ears, nose, mouth and throat: Denies headache, Denies sore throat Cardiovascular: Denies chest pain, Denies shortness of breath Respiratory: Reports dyspnea, Denies cough Gastrointestinal: Denies abdominal pain, Denies diarrhea, Denies nausea, Denies vomiting Genitourinary: Denies dysuria, Denies hematuria Musculoskeletal: Denies myalgias Integumentary: Denies pruritus, Denies rash Past Medical History Past Medical History: Cancer, Hypertension Additional Past Medical History / Comment(s): Nonhodgkins lymphoma stage III diagnosed February,, R side pleural effusions/thoracentesis twice, pt had first chemo and immunotherapy 07/14/17, anemia, diverticulitis, L eye blind since , bronchitis when young. History of Any Multi-Drug Resistant Organisms: None Reported Past Surgical History: Cholecystectomy, Uterine Ablation Additional Past Surgical History / Comment(s): R sided thoracentesis twice with last time done on 07/03/17, R eye surgery when 6 yrs old-had tumor behind eye and detached retina. Past Anesthesia/Blood Transfusion Reactions: No Reported Reaction Additional Past Anesthesia/Blood Transfusion Reaction / Comment(s): Pt recently received blood without reaction. Past Psychological History: No Psychological Hx Reported Smoking Status: Former smoker Past Drug Use History: None Reported - Past Family History Mother History Unknown: Yes Additional Family Medical History / Comment(s): Pt is adopted and does not know parents PMH. Medications and Allergies Home Medications Medication Instructions Recorded Confirmed Type Multivitamins, Thera [Multivitamin 1 tab PO DAILY 02/14/17 07/15/17 History (formulary)] cloNIDine HCL [Catapres] 0.1 mg PO HS 02/14/17 07/15/17 History ALPRAZolam [Xanax] 0.5 mg PO TID PRN 05/09/17 07/15/17 History Acetaminophen Tab [Tylenol] 1,000 mg PO Q6HR PRN 05/09/17 07/15/17 History Albuterol Sulfate [Proair Hfa] 2 puff INHALATION RT-Q6H PRN 06/09/17 07/15/17 History Ibuprofen [Motrin Ib] 400 mg PO Q6HR PRN 06/09/17 07/15/17 History traMADol HCL [Ultram] 50 mg PO Q6HR PRN 06/09/17 07/15/17 History Ipratropium-Albuterol Nebulize 3 ml INHALATION RT-TID #90 07/06/17 07/15/17 Rx [Duoneb 0.5 mg-3 mg/3 ml Soln] ampul.neb Ondansetron [Zofran] 4 mg PO Q6HR PRN 07/15/17 07/15/17 History Allergies Allergy/AdvReac Type Severity Reaction Status Date / Time No Known Allergies Allergy Verified 07/15/17 14:31 Physical Exam Vitals: Vital Signs Temp Pulse Pulse Resp BP BP Pulse Ox 07/16/17 00:15 98.6 F 77 22 126/61 98 07/15/17 21:00 102.1 F H 128 H 24 143/86 98 07/15/17 16:38 109 H 07/15/17 16:30 107 H 07/15/17 15:15 20 07/15/17 14:50 98.1 F 102 H 20 114/72 97 07/15/17 14:08 98.6 F 105 H 18 105/60 96 07/15/17 12:20 111 H 07/15/17 12:08 112 H 07/15/17 10:57 100.2 F H 126 H 20 120/69 96 07/15/17 10:13 137 H 22 118/70 93 L 07/15/17 09:46 102.2 F H 147 H 22 134/74 88 L Intake and Output 07/15/17 07/16/17 07/16/17 22:59 06:59 14:59 Intake Total 300 300 Balance 300 300 Intake: Oral 300 300 Other: # Voids 1 1 Weight 63.503 kg - Constitutional General appearance: obese - EENT Eyes: EOMI - Neck Neck: no lymphadenopathy - Respiratory Respiratory: bilateral: diminished - Cardiovascular Rhythm: regular Heart sounds: normal: S1, S2 Abnormal Heart Sounds: no S3 Gallop - Gastrointestinal General gastrointestinal: soft, no tenderness - Musculoskeletal Musculoskeletal: generalized weakness - Psychiatric Psychiatric: A&O x's 3, appropriate affect Results CBC & Chem 7: 07/15/17 10:07 07/15/17 10:07 Labs: Abnormal Lab Results - Last 24 Hours (Table) 07/15/17 07/15/17 07/15/17 Range/Units 10:07 10:07 10:07 RBC 3.31 L (3.80-5.40) m/uL Hgb 8.6 L (11.4-16.0) gm/dL Hct 27.5 L (34.0-46.0) % RDW 18.8 H (11.5-15.5) % Lymphocytes # 0.3 L (1.0-4.8) k/uL Sodium 136 L (137-145) mmol/L Chloride 93 L (98-107) mmol/L Carbon Dioxide 32 H (22-30) mmol/L Creatinine 0.48 L (0.52-1.04) mg/dL Phosphorus (2.5-4.5) mg/dL AST 45 H (14-36) U/L Alkaline Phosphatase 207 H (38-126) U/L Total Creatine Kinase <20 L (30-135) U/L Total Protein 5.2 L (6.3-8.2) g/dL Albumin 3.0 L (3.5-5.0) g/dL 07/15/17 Range/Units 17:58 RBC (3.80-5.40) m/uL Hgb (11.4-16.0) gm/dL Hct (34.0-46.0) % RDW (11.5-15.5) % Lymphocytes # (1.0-4.8) k/uL Sodium (137-145) mmol/L Chloride (98-107) mmol/L Carbon Dioxide (22-30) mmol/L Creatinine (0.52-1.04) mg/dL Phosphorus 4.7 H (2.5-4.5) mg/dL AST (14-36) U/L Alkaline Phosphatase (38-126) U/L Total Creatine Kinase (30-135) U/L Total Protein (6.3-8.2) g/dL Albumin (3.5-5.0) g/dL Thrombosis Risk Factor Assmnt - Choose All That Apply Any of the Below Risk Factors Present?: Yes Each Factor Represents 1 point: Age 41-60 years Other Risk Factors: Yes Each Risk Factor Represents 2 Points: Malignancy Other congenital or acquired thrombophilia - If yes, enter type in comment: No Thrombosis Risk Factor Assessment Total Risk Factor Score: 3 Thrombosis Risk Factor Assessment Level: Moderate Risk Assessment and Plan (1) Dyspnea Current Visit: Yes Status: Acute Code(s): R06.00 - DYSPNEA, UNSPECIFIED SNOMED Code(s): 915623629 (2) Fever, unknown origin Current Visit: Yes Status: Acute Priority: High Code(s): R50.9 - FEVER, UNSPECIFIED SNOMED Code(s): 5949817 (3) Pleural effusion, right Current Visit: Yes Status: Acute Priority: High Code(s): J90 - PLEURAL EFFUSION, NOT ELSEWHERE CLASSIFIED SNOMED Code(s): 35960120 (4) Follicular lymphoma grade I of extranodal and solid organ sites Current Visit: Yes Status: Chronic Priority: High Code(s): C82.09 - FOLLICULAR LYMPHOMA GRADE I, EXTRNOD AND SOLID ORGAN SITES SNOMED Code(s): 044809842 Plan: Continue to follow with pulmonology. Chest x-ray result is pending. Question need for thoracentesis. Continue supportive care with breathing treatments. Reconcile medications. At this time, she is a full code. Dr. Serna's group will covering for the weekend starting tomorrow. Time with Patient: Greater than 30
[2017-07-16] MEDS: MULTIVITAMINS, THERA 1 EACH TAB PO SCH (08:46)
--- NOTE | 2017-07-16 09:21 | US ---
EXAMINATION TYPE: US chest DATE OF EXAM: 07/16/2017 COMPARISON: Radiograph 07/15/2017 CLINICAL HISTORY: 56-year-old female pleural effusion. TECHNIQUE: Multiple sonographic images of the posterior lower hemithoraces for assessment of pleural effusion. FINDINGS: EXAM MEASUREMENTS: Right Pleural Effusion fluid pocket: 12.6 cm Right skin surface to fluid distance: 2.5 cm Left Pleural Effusion fluid pocket: 1.5 cm Left skin surface to fluid distance: 2.2 cm Right side marked for possible thoracentesis outside the dept. Left side NOT marked for possible thoracentesis outside the dept due to lung tissue and movement of p ocket with patient's breathing. Pulmonologists are able to review the images in the patient?s EMR. IMPRESSIONS: Large right and small left pleural effusions corresponding to the radiographic findings. Right side m arked for possible thoracentesis.
--- NOTE | 2017-07-16 09:22 | XR ---
EXAMINATION TYPE: XR chest 2V DATE OF EXAM: 07/16/2017 COMPARISON: 07/15/2017 HISTORY: 56-year-old female pneumonia TECHNIQUE: Frontal and lateral views FINDINGS: Right heart margin obscured by adjacent pleural parenchymal disease. Moderate to large right pleural effusion stable to slightly increased. Small left pleural effusion. Patchy left basilar opacity is in creased in the interval. Upper lungs are clear. IMPRESSION: 1. Moderate to large right pleural effusion stable to slightly increased. 2. Continued small left pleural effusion. 3. Patchy bibasilar atelectasis or consolidation slightly increased.
[2017-07-16] MEDS ORDERED: LEVOFLOXACIN 750MG-D5W PMX 750 MG in DEXTROSE/WATER 1 150ML.BAG IVPB SCH (12:00)
[2017-07-16 12:46] LABS: Immunoglobulin A 79.3 mg/dL (60.0-350.0); Immunoglobulin M <16.9 mg/dL (40.0-280.0)
--- NOTE | 2017-07-16 12:58 | P.PN ---
Subjective Progress Note Date: 07/16/17 Principal diagnosis: Fever Patient seen today in follow-up. She did have a fever of 102.1 this a.m. Patient denies nausea or vomiting, she does get short of breath when she gets moving around, she is not expectorating much, no hemoptysis no purulent sputum production, no changes in bowel or bladder habits, no acute or uncontrolled pain. Objective - Vital Signs Vital signs: Vital Signs Temp 100.2 F H 07/16/17 11:21 Pulse 115 H 07/16/17 11:21 Resp 20 07/16/17 11:21 BP 120/76 07/16/17 11:21 Pulse Ox 95 07/16/17 11:21 Intake & Output 07/15/17 07/16/17 07/16/17 18:59 06:59 18:59 Intake Total 600 Balance 600 Weight 63.503 kg Intake: Oral 600 Other: # Voids 1 1 - Constitutional General appearance: Present: average body habitus, cooperative, no acute distress - Respiratory Respiratory: right: diminished (. Absent breath sounds lower two thirds of the lung) - Cardiovascular Heart sounds: normal: S1, S2 - Peripheral edema leg Peripheral Edema: bilateral: None - Gastrointestinal General gastrointestinal: Present: normal bowel sounds, soft - Integumentary Integumentary: Present: normal - Neurologic Neurologic: Present: CNII-XII intact - Musculoskeletal Musculoskeletal Comment(s): Left thigh area of firmness just above the lateral aspect of the knee superior to just below the groin, approximately 5 cm wide, smooth contour - Psychiatric Psychiatric: Present: A&O x's 3, appropriate affect, intact judgment & insight - Labs CBC & Chem 7: 07/15/17 10:07 07/15/17 10:07 Labs: Abnormal Lab Results - Last 24 Hours (Table) 07/15/17 Range/Units 17:58 Phosphorus 4.7 H (2.5-4.5) mg/dL Microbiology - Last 24 Hours (Table) 07/15/17 10:07 Blood Culture - Preliminary Blood No Growth after 24 hours - Imaging and Cardiology Chest x-ray: report reviewed Extremity ultrasound report reviewed Assessment and Plan (1) Fever, unknown origin Narrative/Plan: Patient is currently being treated with empiric antibiotics. Flu swab negative , blood and sputum cultures pending, no urinary analysis. Agree with current antibiotic treatment until all cultures have been reported. Patient could possibly also be experiencing tumor fever. She is being monitored closely. 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 Plan is to continue his treatment as soon as her current situation is resolved. She did verbalize understanding this. We reviewed the results of the ultrasound of her left thigh. There is a possibility that this area does have lymphoma involvement. Patient is being treated for lymphoma so the area will be monitored for improvement. If there is persistent or progressive symptoms we will request a biopsy. She verbalized understanding and is okay with the plan. Current Visit: Yes Status: Chronic Priority: High Code(s): C82.09 - FOLLICULAR LYMPHOMA GRADE I, EXTRNOD AND SOLID ORGAN SITES SNOMED Code(s): 005302667 (4) Left leg swelling Narrative/Plan: Ultrasound report reviewed, discussed with patient, please see above Current Visit: Yes Status: Acute Priority: Medium Code(s): M79.89 - OTHER SPECIFIED SOFT TISSUE DISORDERS SNOMED Code(s): 900914389 (5) Pleural effusion, right Narrative/Plan: Defer management to Pulmonary. Current Visit: Yes Status: Acute Priority: High Code(s): J90 - PLEURAL EFFUSION, NOT ELSEWHERE CLASSIFIED SNOMED Code(s): 92970560
[2017-07-16] MEDS: ONDANSETRON 4 MG TAB PO PRN (18:10)
[2017-07-16] MEDS: ACETAMINOPHEN TAB 500 MG TAB PO PRN (18:12)
[2017-07-16] MEDS: cloNIDine HCL 0.1 MG TAB PO SCH (22:06)
[2017-07-16] MEDS: traMADol 50 MG TAB PO PRN (22:07)
[2017-07-16] MEDS: TEMAZEPAM 30 MG CAP PO PRN (22:07)
[2017-07-17] MEDS: PIPERACILLIN-TAZOBACTAM 3.375 GM in DEXTROSE/WATER 1 50ML.BAG IVPB SCH ×3 (00:01→20:57)
[2017-07-17] MEDS: IPRATROPIUM-ALBUTEROL 3 ML NEB INHALATION SCH ×3 (08:53→20:42)
[2017-07-17 09:32] LABS: Anisocytosis Slight; Hypochromasia Marked; MCH 26.2 pg (25.0-35.0); MCHC 30.7 g/dL (31.0-37.0); MCV 85.4 fL (80.0-100.0); Platelet Count 260 k/uL (150-450); Poikilocytosis Slight; RBC 2.69 m/uL (3.80-5.40); RDW 18.4 % (11.5-15.5); WBC 5.3 k/uL (3.8-10.6)
[2017-07-17] MEDS ORDERED: LIDOCAINE 1% INJ 10MG/ML (20 ML MDV) SQ ONE (09:39)
[2017-07-17 09:43] LABS: HGB 7.1 gm/dL (11.4-16.0)
[2017-07-17 10:13] LABS: ALT 23 U/L (9-52); AST 37 U/L (14-36); Albumin 2.5 g/dL (3.5-5.0); Alkaline Phosphatase 190 U/L (38-126); Anion Gap 11 mmol/L; Blood Urea Nitrogen 8 mg/dL (7-17); Calcium 8.4 mg/dL (8.4-10.2); Carbon Dioxide 31 mmol/L (22-30); Chloride 93 mmol/L (98-107); Glucose 122 mg/dL (74-99); Potassium 3.4 mmol/L (3.5-5.1); Sodium 135 mmol/L (137-145); Total Bilirubin 0.3 mg/dL (0.2-1.3); Total Protein 4.6 g/dL (6.3-8.2)
[2017-07-17] MEDS ORDERED: IMMUNE GLOBULIN (HUMAN-IGG) 1 GM/10 ML VIAL IV ONE (10:36)
[2017-07-17] MEDS: MULTIVITAMINS, THERA 1 EACH TAB PO SCH (11:53)
[2017-07-17] MEDS: LEVOFLOXACIN 750 MG TAB PO SCH (11:53)
[2017-07-17] MEDS ORDERED: IMMUNE GLOBULIN (HUMAN-IGG) 20 GM in EMPTY BAG 1 BAG IV NR (12:00)
[2017-07-17] MEDS ORDERED: IMMUNE GLOBULIN (HUMAN-IGG) 10 GM in EMPTY BAG 1 BAG IV NR ×2 (12:00→22:00)
[2017-07-17] MEDS ORDERED: IMMUNE GLOBULIN (HUMAN-IGG) 5 GM in EMPTY BAG 1 BAG IV NR ×2 (12:00→20:00)
--- NOTE | 2017-07-17 12:20 | P.PN ---
Subjective Progress Note Date: 07/17/17 Principal diagnosis: Fever Pt seen today in follow up. She is still having SOB, gets winded waking to bathroom, cough is mostly dry with some occasional sputum expectorated. She had fever last night, no nausea, abd pain, change in bowel or bladder habits, bleeding or swelling. Objective - Vital Signs Vital signs: Vital Signs Temp 98.6 F 07/17/17 08:05 Pulse 93 07/17/17 09:03 Resp 17 07/17/17 08:05 BP 100/66 07/17/17 08:05 Pulse Ox 97 07/17/17 08:05 Intake & Output 07/16/17 07/17/17 07/17/17 18:59 06:59 18:59 Intake Total 320 Balance 320 Intake: Oral 320 Other: # Voids 1 1 1 - Constitutional General appearance: Present: average body habitus, cooperative, no acute distress - EENT Eyes: Present: anicteric sclerae - Respiratory Respiratory: bilateral: diminished (bases, R>L) - Cardiovascular Heart sounds: normal: S1, S2 - Peripheral edema leg Peripheral Edema: bilateral: None - Gastrointestinal General gastrointestinal: Present: normal bowel sounds, soft - Neurologic Neurologic: Present: CNII-XII intact - Musculoskeletal Musculoskeletal: Present: strength equal bilaterally - Psychiatric Psychiatric: Present: A&O x's 3, appropriate affect, intact judgment & insight - Labs CBC & Chem 7: 07/17/17 09:03 07/17/17 09:03 Labs: Abnormal Lab Results - Last 24 Hours (Table) 07/15/17 07/17/17 07/17/17 Range/Units 10:07 09:03 09:03 RBC 2.69 L (3.80-5.40) m/uL Hgb 7.1 L D (11.4-16.0) gm/dL Hct 23.0 L (34.0-46.0) % MCHC 30.7 L (31.0-37.0) g/dL RDW 18.4 H (11.5-15.5) % Sodium 135 L (137-145) mmol/L Potassium 3.4 L (3.5-5.1) mmol/L Chloride 93 L (98-107) mmol/L Carbon Dioxide 31 H (22-30) mmol/L Glucose 122 H (74-99) mg/dL AST 37 H (14-36) U/L Alkaline Phosphatase 190 H (38-126) U/L Total Protein 4.6 L (6.3-8.2) g/dL Albumin 2.5 L (3.5-5.0) g/dL IgG 458.0 L (700.0-1600.0) mg/dL IgM <16.9 L (40.0-280.0) mg/dL Microbiology - Last 24 Hours (Table) 07/16/17 08:00 Gram Stain - Preliminary Sputum 07/15/17 10:07 Blood Culture - Preliminary Blood No Growth after 24 hours Assessment and Plan (1) Fever, unknown origin Narrative/Plan: Fever again yesterday evening. Cultures are negative, pt remains on empiric abx. Quite possibly tumor fever which we would anticipate resolution of as pt gets treated for lymphoma. She has only received cycle 1, day 1 of 2 of treatment. Plan is to give day 2 of treatment if she is improved before end of next week, if not then day 2 not be given and pt will proceed with treatment schedule otherwise. Current Visit: Yes Status: Acute Priority: High Code(s): R50.9 - FEVER, UNSPECIFIED SNOMED Code(s): 8988534 (2) Anemia Narrative/Plan: Anemia of inflammation and r/t disease and treatment, no need for supplemental iron. 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 If persistent or progressive biopsy will be considered Current Visit: Yes Status: Acute Priority: Medium Code(s): M79.89 - OTHER SPECIFIED SOFT TISSUE DISORDERS SNOMED Code(s): 421608413 (5) Pleural effusion, right Narrative/Plan: Case discussed briefly this AM with Dr. Lynne, pt will have right thoracentesis. She may require PRN based on symptoms, this was discussed with Dr. Lynne who agrees. If related to mechanical obstruction from lymphoma then would anticipate improvement as lymphoma is treated. Current Visit: Yes Status: Acute Priority: High Code(s): J90 - PLEURAL EFFUSION, NOT ELSEWHERE CLASSIFIED SNOMED Code(s): 30204661 Plan: Attests: I have performed a History and Physical examination of the pt, discussed with dictator. I agree with dictators note, documented as a scribe.
--- NOTE | 2017-07-17 14:35 | XR ---
EXAMINATION TYPE: XR chest 1V portable DATE OF EXAM: 07/17/2017 COMPARISON: 07/16/2017 HISTORY: Postthoracentesis TECHNIQUE: Single frontal view of the chest is obtained. FINDINGS: There is near complete resolution of the previously seen moderate right pleural effusion a nd progression of the small left pleural effusion. Scattered linear right basilar subsegmental atelec tasis is seen. Remainder the lungs are clear. Cardia mediastinal silhouette is within normal limits a s seen although partially obscured. Mild glenohumeral arthropathy is noted on the left. IMPRESSION: 1. Near complete resolution of the previously seen right-sided pleural effusion with no postprocedura l pneumothorax. Scattered right basilar subsegmental atelectasis remains. 2. Increasing small left pleural effusion with left basilar airspace disease, likely atelectasis.
--- NOTE | 2017-07-17 14:54 | P.PN ---
Subjective Progress Note Date: 07/16/17 (Late entry note) Principal diagnosis: Right-sided pleural effusion, fever of unknown region, follicular lymphoma grade 1 with involvement of extranodal site, left leg swelling related to lymphadenopathy, anemia 07/16/2017, patient seen and evaluated examined during the rounds care plan discussed with the patient and staff as well the ultrasound of the chest performed today reviewed large pleural effusion the right-sided is noted patient has been complaining of mild degree or shortness of breath however complaining of generalized weakness as well will discuss with oncology service about thoracentesis Ms. Dayana Castillo is a 56-year-old female well-known to me patient has a history of recently diagnosed lymphoma she has been found to have recurrent pleural effusion has been 2 times and significant amount of fluid has been removed patient has been admitted into the hospital as after chemotherapy developed spiking fever Patient back in Feb 2017 pt presented with c/o progressive RUQ pain, and SOB, CTA negative for PE, but enlarged mediastinal and bronchial lymph nodes were noted, CT AP fluid showed around gallbladder, enlarged celiac and mesenteric nodes, US showed wall thickening of the gallbladder with gallstones, had laparoscopic cholecystectomy, gallbladder pathology was positive for low-grade B -cell non-Hodgkin's lymphoma, [facility] confirmed diagnosis and further defined the NHL as low-grade follicular type. Pt was nearly asymptomatic and was elected for observation, In Apr and in June she was admitted and treated for pleural effusion, cytology was non-diagnostic for involvement with malignancy, fluid accumulation was felt to be due to mechanical obstruction. Pt patient underwent treatment yesterday and today with Rituxan and Bendeka. She got treatment yesterday, this AM she had fever, then rigors, this persisted so she contacted the office and was instructed to be evaluated in ER, she had 102.2F temp on admit, pancultures collected, empiric zosyn ordered. CXR showing re-accumulation of fluid on the right, Pt denies oral irritation, vomiting, cough is persistent but not progressive, dry, her chest wall can be sore with coughing, no feeling of heart racing, SOB, abd distention, dysuria, having a BM QOD, can have diarrhea occasionally, denies lower leg swelling, her left thigh has persistent and progressive swelling and some tenderness, denies injury, loss of strength, numbness or tingling, no bleeding, has chronic low back pain, stable. Objective - Vital Signs Vital signs: Vital Signs Temp 97.9 F 07/17/17 14:15 Pulse 107 H 07/17/17 14:15 Resp 20 07/17/17 14:15 BP 88/65 07/17/17 14:15 Pulse Ox 98 07/17/17 14:15 Intake & Output 07/16/17 07/17/17 07/17/17 18:59 06:59 18:59 Intake Total 320 Balance 320 Intake: Oral 320 Other: # Voids 1 1 1 - Exam - Constitutional General appearance: average body habitus, cooperative, no acute distress - EENT left eye blindness, cloudy conjunctiva/cornea Eyes: anicteric sclerae, EOMI ENT: hearing grossly normal, normal oropharynx - Neck right posterior cervical shotty adenopathy, right groin [address] palpated, soft, fixed, about 2cm-2.5cm Neck: lymphadenopathy - Respiratory Respiratory: Good air entry bilaterally is present upper part slight decrease in air entry is present at the bases on the right side up to half of the lung over right side - Cardiovascular Heart sounds: normal: S1, S2 leg Peripheral Edema: bilateral: None - Gastrointestinal General gastrointestinal: no absent bowel sounds, no decreased bowel sounds, no distended, no hepatomegaly, no hyperactive bowel sounds, normal bowel sounds, no organomegaly, no rigid, no scaphoid, soft, no splenomegaly, no tenderness, no umbilical hernia, no ventral hernia - Integumentary Integumentary: normal - Neurologic Neurologic: CNII-XII intact - Musculoskeletal Left lateral thigh firm, feels tight, slight discomfort with deep palpation, looks larger in size when compared to the right, no lower extremity swelling Musculoskeletal: strength equal bilaterally - Psychiatric Psychiatric: A&O x's 3, appropriate affect, intact judgment - Labs CBC & Chem 7: 07/17/17 09:03 07/17/17 09:03 Labs: Abnormal Lab Results - Last 24 Hours (Table) 07/17/17 07/17/17 Range/Units : 09:03 RBC 2.69 L (3.80-5.40) m/uL Hgb 7.1 L D (11.4-16.0) gm/dL Hct 23.0 L (34.0-46.0) % MCHC 30.7 L (31.0-37.0) g/dL RDW 18.4 H (11.5-15.5) % Sodium 135 L (137-145) mmol/L Potassium 3.4 L (3.5-5.1) mmol/L Chloride 93 L (98-107) mmol/L Carbon Dioxide 31 H (22-30) mmol/L Glucose 122 H (74-99) mg/dL AST 37 H (14-36) U/L Alkaline Phosphatase 190 H (38-126) U/L Total Protein 4.6 L (6.3-8.2) g/dL Albumin 2.5 L (3.5-5.0) g/dL Microbiology - Last 24 Hours (Table) 07/16/17 08:00 Gram Stain - Preliminary Sputum Sputum Culture - Preliminary 07/15/17 10:07 Blood Culture - Preliminary Blood No Growth after 48 hours Assessment and Plan Assessment: Right-sided recurrent pleural effusion related to lymphoma Fever of unknown region likely related to tumor lysis as discussed with oncology service Chronic anemia Follicular lymphoma grade 1 of ravi and extranodal site Left leg swelling Plan: Continue broad-spectrum antibiotics and pancultured Reviewed ultrasound of lower extremities swelling is likely related to lymphadenopathy Reviewed ultrasound of the chest significant right-sided pleural effusions present consider thoracentesis if okay with oncology service Further recommendations pending plan of care as per clinical response of the patient Time with Patient: Greater than 30
--- NOTE | 2017-07-17 14:57 | P.PN ---
Subjective Progress Note Date: 07/17/17 (Late entry note) Principal diagnosis: Right-sided pleural effusion, fever of unknown region, follicular lymphoma grade 1 with involvement of extranodal site, left leg swelling related to lymphadenopathy, anemia 07/17/2017, patient seen eval examined during the rounds care plan discussed with the primary service as well as oncology services there recommend to proceed with thoracentesis these issues were discussed with the patient procedure explained to the patient will proceed with a right-sided thoracentesis , clinically patient is still having generalized weakness and shortness of breath especially on exertion fever appears to have improved, blood cultures are negative his sputum revealed polymicrobial presence with no significant predominance has been seen 07/16/2017, patient seen and evaluated examined during the rounds care plan discussed with the patient and staff as well the ultrasound of the chest performed today reviewed large pleural effusion the right-sided is noted patient has been complaining of mild degree or shortness of breath however complaining of generalized weakness as well will discuss with oncology service about thoracentesis Ms. Dayana Castillo is a 56-year-old female well-known to me patient has a history of recently diagnosed lymphoma she has been found to have recurrent pleural effusion has been 2 times and significant amount of fluid has been removed patient has been admitted into the hospital as after chemotherapy developed spiking fever Patient back in Feb 2017 pt presented with c/o progressive RUQ pain, and SOB, CTA negative for PE, but enlarged mediastinal and bronchial lymph nodes were noted, CT AP fluid showed around gallbladder, enlarged celiac and mesenteric nodes, US showed wall thickening of the gallbladder with gallstones, had laparoscopic cholecystectomy, gallbladder pathology was positive for low-grade B -cell non-Hodgkin's lymphoma, [facility] confirmed diagnosis and further defined the NHL as low-grade follicular type. Pt was nearly asymptomatic and was elected for observation, In Apr and in June she was admitted and treated for pleural effusion, cytology was non-diagnostic for involvement with malignancy, fluid accumulation was felt to be due to mechanical obstruction. Pt patient underwent treatment yesterday and today with Rituxan and Bendeka. She got treatment yesterday, this AM she had fever, then rigors, this persisted so she contacted the office and was instructed to be evaluated in ER, she had 102.2F temp on admit, pancultures collected, empiric zosyn ordered. CXR showing re-accumulation of fluid on the right, Pt denies oral irritation, vomiting, cough is persistent but not progressive, dry, her chest wall can be sore with coughing, no feeling of heart racing, SOB, abd distention, dysuria, having a BM QOD, can have diarrhea occasionally, denies lower leg swelling, her left thigh has persistent and progressive swelling and some tenderness, denies injury, loss of strength, numbness or tingling, no bleeding, has chronic low back pain, stable. Objective - Vital Signs Vital signs: Vital Signs Temp 97.9 F 07/17/17 14:15 Pulse 107 H 07/17/17 14:15 Resp 20 07/17/17 14:15 BP 88/65 07/17/17 14:15 Pulse Ox 98 07/17/17 14:15 Intake & Output 07/16/17 07/17/17 07/17/17 18:59 06:59 18:59 Intake Total 320 Balance 320 Intake: Oral 320 Other: # Voids 1 1 1 - Exam - Constitutional General appearance: average body habitus, cooperative, no acute distress - EENT left eye blindness, cloudy conjunctiva/cornea Eyes: anicteric sclerae, EOMI ENT: hearing grossly normal, normal oropharynx - Neck right posterior cervical shotty adenopathy, right groin [address] palpated, soft, fixed, about 2cm-2.5cm Neck: lymphadenopathy - Respiratory Respiratory: Good air entry bilaterally is present upper part slight decrease in air entry is present at the bases on the right side up to half of the lung over right side - Cardiovascular Heart sounds: normal: S1, S2 leg Peripheral Edema: bilateral: None - Gastrointestinal General gastrointestinal: no absent bowel sounds, no decreased bowel sounds, no distended, no hepatomegaly, no hyperactive bowel sounds, normal bowel sounds, no organomegaly, no rigid, no scaphoid, soft, no splenomegaly, no tenderness, no umbilical hernia, no ventral hernia - Integumentary Integumentary: normal - Neurologic Neurologic: CNII-XII intact - Musculoskeletal Left lateral thigh firm, feels tight, slight discomfort with deep palpation, looks larger in size when compared to the right, no lower extremity swelling Musculoskeletal: strength equal bilaterally - Psychiatric Psychiatric: A&O x's 3, appropriate affect, intact judgment - Labs CBC & Chem 7: 07/17/17 09:03 07/17/17 09:03 Labs: Abnormal Lab Results - Last 24 Hours (Table) 07/17/17 07/17/17 Range/Units 09:03 09:03 RBC 2.69 L (3.80-5.40) m/uL Hgb 7.1 L D (11.4-16.0) gm/dL Hct 23.0 L (34.0-46.0) % MCHC 30.7 L (31.0-37.0) g/dL RDW 18.4 H (11.5-15.5) % Sodium 135 L (137-145) mmol/L Potassium 3.4 L (3.5-5.1) mmol/L Chloride 93 L (98-107) mmol/L Carbon Dioxide 31 H (22-30) mmol/L Glucose 122 H (74-99) mg/dL AST 37 H (14-36) U/L Alkaline Phosphatase 190 H (38-126) U/L Total Protein 4.6 L (6.3-8.2) g/dL Albumin 2.5 L (3.5-5.0) g/dL Microbiology - Last 24 Hours (Table) 07/16/17 08:00 Gram Stain - Preliminary Sputum Sputum Culture - Preliminary 07/15/17 10:07 Blood Culture - Preliminary Blood No Growth after 48 hours Assessment and Plan Assessment: Right-sided recurrent pleural effusion related to lymphoma and mechanical obstruction Fever of unknown region likely related to tumor lysis as discussed with oncology service Chronic anemia Follicular lymphoma grade 1 of ravi and extranodal site Left leg swelling Plan: Continue broad-spectrum antibiotics and pancultured Reviewed ultrasound of lower extremities swelling is likely related to lymphadenopathy Reviewed ultrasound of the chest significant right-sided pleural effusions present consider thoracentesis as per discussion with oncology service Further recommendations pending plan of care as per clinical response of the patient Time with Patient: Greater than 30
--- NOTE | 2017-07-17 15:01 | P.PCN ---
Date of Procedure: 07/17/17 Preoperative Diagnosis: Follicle or lymphoma, large right-sided pleural effusion, shortness of breath, fever of unknown region Postoperative Diagnosis: As above Procedure(s) Performed: Right thoracentesis Anesthesia: local Surgeon: John Lynne Estimated Blood Loss (ml): 2 Condition: stable Disposition: floor Indications for Procedure: As above Operative Findings: As below Description of Procedure: Patient prepared and draped in a usual fashion ultrasound of the chest was reviewed, procedure explained to the patient at length along with her risk alternative and complication, 1% lidocaine was infiltrated in right posterior lateral thoracic wall stab incision are less than 1/8 of a centimeter was performed catheter in needle was placed with the needle was withdrawn catheter left in pleural space and 2.5 L of pleural fluid aspirated without any difficulty or complication patient tolerated procedure well no complication noted fluid is being sent for Gram stain culture and cytology cell count and differential, post procedure chest x-ray reviewed with near complete resolution of right-sided pleural effusion
[2017-07-17 17:11] LABS: Appearance,BF Clear; Color,BF Yellow; Nucleated Cells, Body Fluid 288 /uL; RBC, Body Fluid 740 /uL
[2017-07-17 17:18] LABS: Mononuclear WBC,Body Fluid 85 %; Polynuclear WBC,Body Fluid 15 %; Total Cells Counted,Body Fluid 100
[2017-07-17] MEDS: ACETAMINOPHEN TAB 500 MG TAB PO PRN (18:24)
[2017-07-17] MEDS: ONDANSETRON 4 MG TAB PO PRN (18:49)
[2017-07-17 20:03] LABS: Total Protein, Body Fluid 3100 mg/dL
[2017-07-17] MEDS: cloNIDine HCL 0.1 MG TAB PO SCH (20:48)
[2017-07-17] MEDS: traMADol 50 MG TAB PO PRN (20:48)
[2017-07-17] MEDS: TEMAZEPAM 30 MG CAP PO PRN (20:48)
--- NOTE | 2017-07-17 21:28 | XR ---
EXAMINATION TYPE: XR chest 1V portable DATE OF EXAM: 07/17/2017 COMPARISON: Chest radiograph of earlier on the same date HISTORY: Postthoracentesis. Shortness of breath TECHNIQUE: Single frontal view of the chest is obtained. FINDINGS: There is new multifocal right-sided airspace disease within the midlung and lower lung. Ag ain there is a layering small left pleural effusion and left basilar airspace disease. Recent thorace ntesis has been performed. Remainder the lungs are clear. Cardiomediastinal silhouette is again parti ally obscured but overall within normal limits. Osseous structures are intact. IMPRESSION: New multifocal right-sided airspace disease concerning for reexpansion pulmonary edema i n the setting of recent thoracentesis and no focal air space disease on the chest radiograph of [facility] the same day. Stable small layering left pleural effusion and left basilar airspace disease.
--- NOTE | 2017-07-18 00:33 | P.PN ---
Subjective Progress Note Date: 07/17/17 Principal diagnosis: Non-Hodgkin lymphoma Fever of unknown origin Patient is a 56-year-old white female who is undergoing treatment for follicular lymphoma and has struggled with significant shortness of breath. She has presented again with pleural effusion. 07/17/2017 Patient had thoracentesis done on right side today. Patient says that her breathing status is much improved now. Pulmonary and oncology is following. T-max 104.3 No nausea vomiting or abdominal pain. No cough is from production. No other signs of infection. Cultures have been negative so far patient is being continued on empiric antibiotics. Active Medications Generic Name Dose Route Start Last Admin Trade Name Freq PRN Reason Stop Dose Admin Acetaminophen 1,000 mg 07/15/17 22:01 07/17/17 18:24 Tylenol Tab PO 1,000 mg Q6HR PRN Administration MILD Pain Albuterol Sulfate 2.5 mg 07/15/17 11:39 07/15/17 16:29 Ventolin Nebulized INHALATION 2.5 mg RT-Q6H PRN Administration Shortness Of Breath Albuterol/Ipratropium 3 ml 07/16/17 08:00 07/17/17 20:42 Duoneb 0.5 Mg-3 Mg/3 Ml Soln INHALATION 3 ml RT-TID BERT Administration Alprazolam 0.5 mg 07/15/17 21:14 07/17/17 12:29 Xanax PO 0.5 mg TID PRN Administration Anxiety Clonidine 0.1 mg 07/15/17 21:00 07/17/17 20:48 Catapres PO 0.1 mg HS BERT Administration Piperacillin/Tazobactam/ 50 mls @ 12.5 mls/hr 07/17/17 20:00 07/17/17 20:57 Dextrose 3.375 gm/ IV Solution IVPB 12.5 mls/hr Q8H BERT Administration Ibuprofen 400 mg 07/15/17 22:01 07/17/17 20:48 Advil PO 400 mg Q6HR PRN Administration MODERATE Pain Levofloxacin 750 mg 07/17/17 12:00 07/17/17 11:53 Levaquin PO 750 mg Q24H BERT Administration Miscellaneous Information 1 each 07/15/17 11:37 Pneumonia Protocol Utilized PO ONCE PRN Per Protocol Multivitamins 1 each 07/16/17 09:00 07/17/17 11:53 Theragran PO 1 each DAILY BERT Administration Ondansetron HCl 4 mg 07/15/17 21:14 07/17/17 18:49 Zofran PO 4 mg Q6HR PRN Administration nausea Temazepam 30 mg 07/15/17 22:02 07/17/17 20:48 Restoril PO 30 mg HS PRN Administration Insomnia Tramadol HCl 50 mg 07/15/17 21:14 07/17/17 20:48 Ultram PO 50 mg Q6HR PRN Administration SEVERE Pain Objective - Vital Signs Vital signs: Vital Signs Temp 97.9 F 07/17/17 14:15 Pulse 107 H 07/17/17 14:15 Resp 20 07/17/17 14:15 BP 88/65 07/17/17 14:15 Pulse Ox 98 07/17/17 14:15 Intake & Output 07/16/17 07/17/17 07/17/17 18:59 06:59 18:59 Intake Total 320 Balance 320 Intake: Oral 320 Other: # Voids 1 1 1 - Exam PHYSICAL EXAMINATION: Patient is lying in the bed comfortably, no acute distress, awake alert and oriented.. HEENT: Normocephalic. Neck is supple. Pupils reactive. Nostrils clear. Oral cavity is moist. Ears reveal no drainage. Neck reveals no JVD, carotid bruits, or thyromegaly. CHEST EXAMINATION: Trachea is central. Symmetrical expansion. Right basilar crackles. No wheezing or rhonchi CARDIAC: Normal S1, S2 with no gallops. No murmurs ABDOMEN: Soft. Bowel sounds normal. No organomegaly. No abdominal bruits. Extremities: 2+ edema. No clubbing or cyanosis Neurologically awake, alert, oriented x3 with well-coordinated movements. No focal deficits noted Skin: No rash or skin lesions. Psychiatric: Cooperative. Nonsuicidal Musculoskeletal: No joint swelling or deformity. Normal range of motion. - Labs CBC & Chem 7: 07/17/17 09:03 07/17/17 09:03 Labs: Abnormal Lab Results - Last 24 Hours (Table) 07/15/17 07/17/17 07/17/17 Range/Units 10:07 09:03 09:03 RBC 2.69 L (3.80-5.40) m/uL Hgb 7.1 L D (11.4-16.0) gm/dL Hct 23.0 L (34.0-46.0) % MCHC 30.7 L (31.0-37.0) g/dL RDW 18.4 H (11.5-15.5) % Sodium 135 L (137-145) mmol/L Potassium 3.4 L (3.5-5.1) mmol/L Chloride 93 L (98-107) mmol/L Carbon Dioxide 31 H (22-30) mmol/L Glucose 122 H (74-99) mg/dL AST 37 H (14-36) U/L Alkaline Phosphatase 190 H (38-126) U/L Total Protein 4.6 L (6.3-8.2) g/dL Albumin 2.5 L (3.5-5.0) g/dL IgG 458.0 L (700.0-1600.0) mg/dL IgM <16.9 L (40.0-280.0) mg/dL Microbiology - Last 24 Hours (Table) 07/16/17 08:00 Gram Stain - Preliminary Sputum Sputum Culture - Preliminary 07/15/17 10:07 Blood Culture - Preliminary Blood No Growth after 48 hours Assessment and Plan Assessment: Dyspnea secondary to large right-sided pleural effusion status post thoracentesis Fever of unknown origin. 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 Left greater than right Plan: Patient will be continued on broad-spectrum antibiotics in the form of Levaquin and Zosyn. Patient is status post thoracentesis today. Otherwise patient is undergoing chemotherapy yesterday and today. Oncology and pulmonary is following. Further recommendations based on the clinical course. Time with Patient: Greater than 30
[2017-07-18] MEDS ORDERED: IMMUNE GLOBULIN (HUMAN-IGG) 10 GM in EMPTY BAG 1 BAG IV NR (02:00)
[2017-07-18] MEDS: PIPERACILLIN-TAZOBACTAM 3.375 GM in DEXTROSE/WATER 1 50ML.BAG IVPB SCH ×3 (04:53→20:31)
[2017-07-18] MEDS: IPRATROPIUM-ALBUTEROL 3 ML NEB INHALATION SCH ×3 (07:17→19:39)
--- NOTE | 2017-07-18 08:17 | P.PN ---
Subjective Progress Note Date: 07/18/17 Principal diagnosis: Right-sided pleural effusion, fever of unknown region, follicular lymphoma grade 1 with involvement of extranodal site, left leg swelling related to lymphadenopathy, anemia 07/18/2017, patient seen eval examined during the rounds clinically patient has been doing well she is status post thoracentesis is more than 2.5 L of yellow greenish fluid removed from right side. Patient is less short of breath however due to spike a fever last night currently she is afebrile 07/17/2017, patient seen eval examined during the rounds care plan discussed with the primary service as well as oncology services there recommend to proceed with thoracentesis these issues were discussed with the patient procedure explained to the patient will proceed with a right-sided thoracentesis , clinically patient is still having generalized weakness and shortness of breath especially on exertion fever appears to have improved, blood cultures are negative his sputum revealed polymicrobial presence with no significant predominance has been seen 07/16/2017, patient seen and evaluated examined during the rounds care plan discussed with the patient and staff as well the ultrasound of the chest performed today reviewed large pleural effusion the right-sided is noted patient has been complaining of mild degree or shortness of breath however complaining of generalized weakness as well will discuss with oncology service about thoracentesis Ms. Dayana Castillo is a 56-year-old female well-known to me patient has a history of recently diagnosed lymphoma she has been found to have recurrent pleural effusion has been 2 times and significant amount of fluid has been removed patient has been admitted into the hospital as after chemotherapy developed spiking fever Patient back in Feb 2017 pt presented with c/o progressive RUQ pain, and SOB, CTA negative for PE, but enlarged mediastinal and bronchial lymph nodes were noted, CT AP fluid showed around gallbladder, enlarged celiac and mesenteric nodes, US showed wall thickening of the gallbladder with gallstones, had laparoscopic cholecystectomy, gallbladder pathology was positive for low-grade B -cell non-Hodgkin's lymphoma, [facility] confirmed diagnosis and further defined the NHL as low-grade follicular type. Pt was nearly asymptomatic and was elected for observation, In Apr and in June she was admitted and treated for pleural effusion, cytology was non-diagnostic for involvement with malignancy, fluid accumulation was felt to be due to mechanical obstruction. Pt patient underwent treatment yesterday and today with Rituxan and Bendeka. She got treatment yesterday, this AM she had fever, then rigors, this persisted so she contacted the office and was instructed to be evaluated in ER, she had 102.2F temp on admit, pancultures collected, empiric zosyn ordered. CXR showing re-accumulation of fluid on the right, Pt denies oral irritation, vomiting, cough is persistent but not progressive, dry, her chest wall can be sore with coughing, no feeling of heart racing, SOB, abd distention, dysuria, having a BM QOD, can have diarrhea occasionally, denies lower leg swelling, her left thigh has persistent and progressive swelling and some tenderness, denies injury, loss of strength, numbness or tingling, no bleeding, has chronic low back pain, stable. Objective - Vital Signs Vital signs: Vital Signs Temp 97.6 F 07/18/17 04:15 Pulse 92 07/18/17 07:28 Resp 18 07/18/17 04:15 BP 92/58 07/18/17 04:15 Pulse Ox 97 07/18/17 04:15 Intake & Output 07/17/17 07/18/17 07/18/17 18:59 06:59 18:59 Intake Total 76.5 480 Balance 76.5 480 Intake: Intake, IV Titration 76.5 Amount Immune Globulin (Human- 76.5 IgG) 10 gm In Empty Bag 1 bag @ Titrate IV .Q0M NR Rx#:[id number] Oral 480 Other: # Voids 1 1 # Emeses 1 - Exam - Constitutional General appearance: average body habitus, cooperative, no acute distress - EENT left eye blindness, cloudy conjunctiva/cornea Eyes: anicteric sclerae, EOMI ENT: hearing grossly normal, normal oropharynx - Neck right posterior cervical shotty adenopathy, right groin [address] palpated, soft, fixed, about 2cm-2.5cm Neck: lymphadenopathy - Respiratory Respiratory: Good air entry bilaterally is present upper part slight decrease in air entry is present at the bases on the right side up to half of the lung over right side - Cardiovascular Heart sounds: normal: S1, S2 leg Peripheral Edema: bilateral: None - Gastrointestinal General gastrointestinal: no absent bowel sounds, no decreased bowel sounds, no distended, no hepatomegaly, no hyperactive bowel sounds, normal bowel sounds, no organomegaly, no rigid, no scaphoid, soft, no splenomegaly, no tenderness, no umbilical hernia, no ventral hernia - Integumentary Integumentary: normal - Neurologic Neurologic: CNII-XII intact - Musculoskeletal Left lateral thigh firm, feels tight, slight discomfort with deep palpation, looks larger in size when compared to the right, no lower extremity swelling Musculoskeletal: strength equal bilaterally - Psychiatric Psychiatric: A&O x's 3, appropriate affect, intact judgment - Labs CBC & Chem 7: 07/17/17 09:03 07/17/17 09:03 Labs: Abnormal Lab Results - Last 24 Hours (Table) 07/17/17 07/17/17 Range/Units 09:03 09:03 RBC 2.69 L (3.80-5.40) m/uL Hgb 7.1 L D (11.4-16.0) gm/dL Hct 23.0 L (34.0-46.0) % MCHC 30.7 L (31.0-37.0) g/dL RDW 18.4 H (11.5-15.5) % Sodium 135 L (137-145) mmol/L Potassium 3.4 L (3.5-5.1) mmol/L Chloride 93 L (98-107) mmol/L Carbon Dioxide 31 H (22-30) mmol/L Glucose 122 H (74-99) mg/dL AST 37 H (14-36) U/L Alkaline Phosphatase 190 H (38-126) U/L Total Protein 4.6 L (6.3-8.2) g/dL Albumin 2.5 L (3.5-5.0) g/dL Microbiology - Last 24 Hours (Table) 07/17/17 14:05 Acid Fast Bacilli Smear - Final Pleural Fluid Acid Fast Bacilli Culture - Preliminary 07/17/17 14:05 Gram Stain - Preliminary Pleural Fluid Body Fluid Culture - Preliminary 07/17/17 14:05 Fungal Culture - Preliminary Pleural Fluid 07/16/17 08:00 Gram Stain - Preliminary Sputum Sputum Culture - Preliminary 07/15/17 10:07 Blood Culture - Preliminary Blood No Growth after 48 hours Assessment and Plan Assessment: Right-sided recurrent pleural effusion related to lymphoma and mechanical obstruction, status post a thoracentesis right Fever of unknown region likely related to tumor lysis as discussed with oncology service Chronic anemia Follicular lymphoma grade 1 of ravi and extranodal site Left leg swelling Plan: Continue broad-spectrum antibiotics and pancultured Reviewed ultrasound of lower extremities swelling is likely related to lymphadenopathy Reviewed ultrasound of the chest significant right-sided pleural effusions status post right thoracentesis as per discussion with oncology service Further recommendations pending plan of care as per clinical response of the patient Time with Patient: Greater than 30
[2017-07-18] MEDS: MULTIVITAMINS, THERA 1 EACH TAB PO SCH (09:44)
[2017-07-18] MEDS: SODIUM CHLORIDE 0.9% 1,000 ML IV SCH (12:20)
[2017-07-18] MEDS: LEVOFLOXACIN 750 MG TAB PO SCH (12:22)
[2017-07-18] MEDS: ACETAMINOPHEN TAB 500 MG TAB PO PRN ×2 (14:35→20:30)
[2017-07-18] MEDS: cloNIDine HCL 0.1 MG TAB PO SCH (20:23)
[2017-07-18] MEDS: TEMAZEPAM 30 MG CAP PO PRN (20:35)
[2017-07-18] MEDS: traMADol 50 MG TAB PO PRN (20:35)
--- NOTE | 2017-07-19 01:27 | P.PN ---
Subjective Progress Note Date: 07/18/17 Principal diagnosis: Non-Hodgkin lymphoma Fever of unknown origin Patient is a 56-year-old white female who is undergoing treatment for follicular lymphoma and has struggled with significant shortness of breath. She has presented again with pleural effusion. 07/17/2017 Patient had thoracentesis done on right side today. Patient says that her breathing status is much improved now. Pulmonary and oncology is following. T-max 104.3 No nausea vomiting or abdominal pain. No cough is from production. No other signs of infection. Cultures have been negative so far patient is being continued on empiric antibiotics. 07/18/2017 Patient has been febrile today. Repeat chest x-ray showed increasing right- sided opacities, worsening pulmonary edema. Pulmonary is on board. Otherwise patient did receive chemotherapy last night. No complaints of chest pain. No nausea vomiting or abdominal pain. Active Medications Generic Name Dose Route Start Last Admin Trade Name Freq PRN Reason Stop Dose Admin Acetaminophen 1,000 mg 07/15/17 22:01 07/17/17 18:24 Tylenol Tab PO 1,000 mg Q6HR PRN Administration MILD Pain Albuterol Sulfate 2.5 mg 07/15/17 11:39 07/15/17 16:29 Ventolin Nebulized INHALATION 2.5 mg RT-Q6H PRN Administration Shortness Of Breath Albuterol/Ipratropium 3 ml 07/16/17 08:00 07/17/17 20:42 Duoneb 0.5 Mg-3 Mg/3 Ml Soln INHALATION 3 ml RT-TID BERT Administration Alprazolam 0.5 mg 07/15/17 21:14 07/17/17 12:29 Xanax PO 0.5 mg TID PRN Administration Anxiety Clonidine 0.1 mg 07/15/17 21:00 07/17/17 20:48 Catapres PO 0.1 mg HS BERT Administration Piperacillin/Tazobactam/ 50 mls @ 12.5 mls/hr 07/17/17 20:00 07/17/17 20:57 Dextrose 3.375 gm/ IV Solution IVPB 12.5 mls/hr Q8H BERT Administration Ibuprofen 400 mg 07/15/17 22:01 07/17/17 20:48 Advil PO 400 mg Q6HR PRN Administration MODERATE Pain Levofloxacin 750 mg 07/17/17 12:00 07/17/17 11:53 Levaquin PO 750 mg Q24H BERT Administration Miscellaneous Information 1 each 07/15/17 11:37 Pneumonia Protocol Utilized PO ONCE PRN Per Protocol Multivitamins 1 each 07/16/17 09:00 07/17/17 11:53 Theragran PO 1 each DAILY BERT Administration Ondansetron HCl 4 mg 07/15/17 21:14 07/17/17 18:49 Zofran PO 4 mg Q6HR PRN Administration nausea Temazepam 30 mg 07/15/17 22:02 07/17/17 20:48 Restoril PO 30 mg HS PRN Administration Insomnia Tramadol HCl 50 mg 07/15/17 21:14 07/17/17 20:48 Ultram PO 50 mg Q6HR PRN Administration SEVERE Pain Objective - Vital Signs Vital signs: Vital Signs Temp 102.6 F H 07/18/17 14:28 Pulse 108 H 07/18/17 13:53 Resp 20 07/18/17 11:25 BP 104/66 07/18/17 12:23 Pulse Ox 100 07/18/17 11:25 Intake & Output 07/17/17 07/18/17 07/18/17 18:59 06:59 18:59 Intake Total 76.5 480 Balance 76.5 480 Weight 63.503 kg Intake: Intake, IV Titration 76.5 Amount Immune Globulin (Human- 76.5 IgG) 10 gm In Empty Bag 1 bag @ Titrate IV .Q0M NR Rx#:[id number] Oral 480 Other: # Voids 1 1 2 # Emeses 1 - Exam PHYSICAL EXAMINATION: Patient is lying in the bed comfortably, no acute distress, awake alert and oriented.. HEENT: Normocephalic. Neck is supple. Pupils reactive. Nostrils clear. Oral cavity is moist. Ears reveal no drainage. Neck reveals no JVD, carotid bruits, or thyromegaly. CHEST EXAMINATION: Trachea is central. Symmetrical expansion. Right basilar crackles. No wheezing or rhonchi CARDIAC: Normal S1, S2 with no gallops. No murmurs ABDOMEN: Soft. Bowel sounds normal. No organomegaly. No abdominal bruits. Extremities: 2+ edema. No clubbing or cyanosis Neurologically awake, alert, oriented x3 with well-coordinated movements. No focal deficits noted Skin: No rash or skin lesions. Psychiatric: Cooperative. Nonsuicidal Musculoskeletal: No joint swelling or deformity. Normal range of motion. - Labs CBC & Chem 7: 07/17/17 09:03 07/17/17 09:03 Labs: Microbiology - Last 24 Hours (Table) 07/15/17 10:07 Blood Culture - Preliminary Blood No Growth after 72 hours 07/17/17 14:05 Gram Stain - Preliminary Pleural Fluid Body Fluid Culture - Preliminary 07/16/17 08:00 Gram Stain - Final Sputum Sputum Culture - Final 07/17/17 14:05 Acid Fast Bacilli Smear - Final Pleural Fluid Acid Fast Bacilli Culture - Preliminary 07/17/17 14:05 Fungal Culture - Preliminary Pleural Fluid Assessment and Plan Assessment: Dyspnea secondary to large right-sided pleural effusion status post thoracentesis Fever of unknown origin. Likely due to cancer related Follicular lymphoma grade I of extranodal and solid organ sites Chronic anemia Bilateral lower extremity swelling. Left greater than right Plan: Patient will be continued on broad-spectrum antibiotics in the form of Levaquin and Zosyn. Patient is status post thoracentesis on 07/17/2017. Otherwise patient is undergoing chemotherapy yesterday. Oncology and pulmonary is following. Further recommendations based on the clinical course. Time with Patient: Greater than 30
[2017-07-19] MEDS: PIPERACILLIN-TAZOBACTAM 3.375 GM in DEXTROSE/WATER 1 50ML.BAG IVPB SCH ×3 (04:04→19:35)
[2017-07-19] MEDS: ONDANSETRON 4 MG TAB PO PRN (04:07)
[2017-07-19] MEDS: SODIUM CHLORIDE 0.9% 1,000 ML IV SCH ×2 (06:25→10:27)
[2017-07-19] MEDS: IPRATROPIUM-ALBUTEROL 3 ML NEB INHALATION SCH ×3 (07:40→19:25)
[2017-07-19] MEDS: MULTIVITAMINS, THERA 1 EACH TAB PO SCH (08:15)
[2017-07-19] MEDS: LEVOFLOXACIN 750 MG TAB PO SCH (12:48)
[2017-07-19] MEDS ORDERED: Potassium Replacement Protocol 1 EACH MISC MISCELLANE PRN (13:15)
[2017-07-19] MEDS: POTASSIUM CHLORIDE ER 20 MEQ TAB.ER PO SCH ×2 (14:30→16:33)
--- NOTE | 2017-07-19 15:30 | PN ---
PROGRESS NOTE DATE OF SERVICE: 07/19/2017 She is feeling weak. She does not seem to be in respiratory distress. She did have A fever of 100.8 last night, and she was slightly hypotensive at that time with a pressure 94/61. Now on physical examination, heart rate is 108, temperature 99.2, blood pressure 107/61, O2 sat on 2 L by nasal cannula is 95%. HEENT is unremarkable. Chest reveals decreased breath sounds at the bases. Cardiovascular system is an S1, S2. Abdomen is soft. There is no pedal edema. IMPRESSION: 1. Pleural effusion, status post thoracentesis with no growth of organisms. 2. Follicular lymphoma fever of unknown origin, etiology which is unclear for which the patient will be seen by ID. Depending on how she does, we shall make further changes to her care. MMODL / IJN: [id number] /
[2017-07-19] MEDS: traMADol 50 MG TAB PO PRN (20:39)
[2017-07-19] MEDS: TEMAZEPAM 30 MG CAP PO PRN (20:40)
[2017-07-19] MEDS: ACETAMINOPHEN TAB 500 MG TAB PO PRN (22:07)
[2017-07-19] MEDS: cloNIDine HCL 0.1 MG TAB PO SCH (22:09)
--- NOTE | 2017-07-19 22:34 | P.PN ---
Subjective Progress Note Date: 07/19/17 Principal diagnosis: Non-Hodgkin lymphoma Fever of unknown origin Patient is a 56-year-old white female who is undergoing treatment for follicular lymphoma and has struggled with significant shortness of breath. She has presented again with pleural effusion. 07/17/2017 Patient had thoracentesis done on right side today. Patient says that her breathing status is much improved now. Pulmonary and oncology is following. T-max 104.3 No nausea vomiting or abdominal pain. No cough is from production. No other signs of infection. Cultures have been negative so far patient is being continued on empiric antibiotics. 07/18/2017 Patient has been febrile today. Repeat chest x-ray showed increasing right- sided opacities, worsening pulmonary edema. Pulmonary is on board. Otherwise patient did receive chemotherapy last night. No complaints of chest pain. No nausea vomiting or abdominal pain. 07/19/2017 Patient denied any complaints of chest pain. No worsening shortness of breath. Symptomatically much improved. Otherwise T-max was 100.8 last night. Currently on broad-spectrum antibiotics in the form of Zosyn and Levaquin. Pulmonary is following. ID was consulted for further evaluation. Fever thought to be due to underlying malignancy. Currently sitting in a chair comfortably. No nausea vomiting abdominal pain. No other acute overnight issues otherwise. All other review of systems negative except the above Active Medications Generic Name Dose Route Start Last Admin Trade Name Freq PRN Reason Stop Dose Admin Acetaminophen 1,000 mg 07/15/17 22:01 07/17/17 18:24 Tylenol Tab PO 1,000 mg Q6HR PRN Administration MILD Pain Albuterol Sulfate 2.5 mg 07/15/17 11:39 07/15/17 16:29 Ventolin Nebulized INHALATION 2.5 mg RT-Q6H PRN Administration Shortness Of Breath Albuterol/Ipratropium 3 ml 07/16/17 08:00 07/17/17 20:42 Duoneb 0.5 Mg-3 Mg/3 Ml Soln INHALATION 3 ml RT-TID BERT Administration Alprazolam 0.5 mg 07/15/17 21:14 07/17/17 12:29 Xanax PO 0.5 mg TID PRN Administration Anxiety Clonidine 0.1 mg 07/15/17 21:00 07/17/17 20:48 Catapres PO 0.1 mg HS BERT Administration Piperacillin/Tazobactam/ 50 mls @ 12.5 mls/hr 07/17/17 20:00 07/17/17 20:57 Dextrose 3.375 gm/ IV Solution IVPB 12.5 mls/hr Q8H BERT Administration Ibuprofen 400 mg 07/15/17 22:01 07/17/17 20:48 Advil PO 400 mg Q6HR PRN Administration MODERATE Pain Levofloxacin 750 mg 07/17/17 12:00 07/17/17 11:53 Levaquin PO 750 mg Q24H BERT Administration Miscellaneous Information 1 each 07/15/17 11:37 Pneumonia Protocol Utilized PO ONCE PRN Per Protocol Multivitamins 1 each 07/16/17 09:00 07/17/17 11:53 Theragran PO 1 each DAILY BERT Administration Ondansetron HCl 4 mg 07/15/17 21:14 07/17/17 18:49 Zofran PO 4 mg Q6HR PRN Administration nausea Temazepam 30 mg 07/15/17 22:02 07/17/17 20:48 Restoril PO 30 mg HS PRN Administration Insomnia Tramadol HCl 50 mg 07/15/17 21:14 07/17/17 20:48 Ultram PO 50 mg Q6HR PRN Administration SEVERE Pain Objective - Vital Signs Vital signs: Vital Signs Temp 98.3 F 07/19/17 15:50 Pulse 112 H 07/19/17 19:34 Resp 20 07/19/17 15:50 BP 102/68 07/19/17 15:50 Pulse Ox 96 07/19/17 16:59 Intake & Output 07/19/17 07/19/17 07/20/17 06:59 18:59 06:59 Intake Total 720 1200 Balance 720 1200 Intake: Oral 720 1200 Other: # Voids 3 2 # Bowel Movements 1 # Emeses 1 - Exam PHYSICAL EXAMINATION: Patient is lying in the bed comfortably, no acute distress, awake alert and oriented.. HEENT: Normocephalic. Neck is supple. Pupils reactive. Nostrils clear. Oral cavity is moist. Ears reveal no drainage. Neck reveals no JVD, carotid bruits, or thyromegaly. CHEST EXAMINATION: Trachea is central. Symmetrical expansion. Right basilar crackles. No wheezing or rhonchi CARDIAC: Normal S1, S2 with no gallops. No murmurs ABDOMEN: Soft. Bowel sounds normal. No organomegaly. No abdominal bruits. Extremities: 2+ edema. No clubbing or cyanosis Neurologically awake, alert, oriented x3 with well-coordinated movements. No focal deficits noted Skin: No rash or skin lesions. Psychiatric: Cooperative. Nonsuicidal Musculoskeletal: No joint swelling or deformity. Normal range of motion. - Labs CBC & Chem 7: 07/17/17 09:03 07/17/17 09:03 Labs: Microbiology - Last 24 Hours (Table) 07/17/17 14:05 Gram Stain - Preliminary Pleural Fluid Body Fluid Culture - Preliminary 07/15/17 10:07 Blood Culture - Preliminary Blood No Growth after 96 hours Assessment and Plan Assessment: Dyspnea secondary to large right-sided pleural effusion status post thoracentesis Fever of unknown origin. Likely due to cancer related Follicular lymphoma grade I of extranodal and solid organ sites Chronic anemia Bilateral lower extremity swelling. Left greater than right Plan: Patient will be continued on broad-spectrum antibiotics in the form of Levaquin and Zosyn. Patient is status post thoracentesis on 07/17/2017. Otherwise patient is undergoing chemotherapy yesterday. Oncology and pulmonary is following. Further recommendations based on the clinical course. Time with Patient: Greater than 30
[2017-07-20] MEDS: PIPERACILLIN-TAZOBACTAM 3.375 GM in DEXTROSE/WATER 1 50ML.BAG IVPB SCH ×2 (02:56→12:20)
[2017-07-20] MEDS: MULTIVITAMINS, THERA 1 EACH TAB PO SCH (08:47)
[2017-07-20] MEDS: IPRATROPIUM-ALBUTEROL 3 ML NEB INHALATION SCH ×3 (09:20→19:23)
[2017-07-20] MEDS: LEVOFLOXACIN 750 MG TAB PO SCH (12:20)
[2017-07-20] MEDS: ONDANSETRON 4 MG TAB PO PRN (12:46)
--- NOTE | 2017-07-20 14:55 | P.CONS ---
History of Present Illness - Reason for Consult Consult date: 07/20/17 - Chief Complaint Shortness of breath - History of Present Illness 56-year-old female presents to the oncologist office for further evaluation. She has no known history of abdominal pain in February 2017. At that point in time she was found evidence of cholecystitis and a laparoscopic cholecystectomy was performed. During the workup there was evidence of lymphadenopathy. The gallbladder the pathology was noted to be positive for the low-grade B-cell non-Hodgkin's lymphoma is confirmed through [facility]. This low-grade follicular lymphoma was somewhat asymptomatic and was not going to be actively treated. However the patient subsequently has developed of multiple pleural effusions as well as pitting edema to her lower extremity. Because of this she was initiated chemotherapy with Rituxan and [place]. Shortly after she started developed fever without much chills but got more short of breath. She has a presented to the oncologist office for her next cycle of chemotherapy because of her symptoms she was admitted. She has been seen by pulmonary medicine and a thoracentesis performed is a lot of marked improvement of her shortness of breath and cough. The minimal cough she has is dry and without significant sputum production and no hemoptysis. No several days and her stay her fevers have resolved. After the thoracentesis she is without significant shortness of breath but does enjoy her breathing treatments because she was a long-term smoker and does have some chronic bronchitis. Denies chills and rigors. Review of Systems Patient has shortness of breath at admission is now improved. Fevers have been noted but no chills or rigors HEENT:Denies headache or acute visual change. Denies sinus or mouth discomforts. Denies neck stiffness or pain. Denies significant oral cavity pain. Denies difficulty on swallowing. Lungs: As per the HPI Cardiovascular: Denies chest pain, chest wall pain, orthopnea, dyspnea on exertion, syncope Gastrointestinal:Denies nausea, vomiting, diarrhea, constipation, hematemesis, melena, hematochezia. No no significant change of bowel habit noticed. Musculoskeletal: denies significant myalgias or arthralgias. No new joint swelling. Denies new back pain. Skin: Denies new rash or lesions. No new ulcers or wounds are related.. Neuro: Denies headache or visual change. Denies any new onset weakness or difficulty with ambulation. Denies falls or seizures. Psychiatric:Denies anxiety or depression. Endocrine: Denies significant fatigue, denies significant weight loss or weight gain. Past Medical History Past Medical History: Cancer, Hypertension Additional Past Medical History / Comment(s): Nonhodgkins lymphoma stage III diagnosed February,, R side pleural effusions/thoracentesis twice, pt had first chemo and immunotherapy 07/14/17, anemia, diverticulitis, L eye blind since , bronchitis when young. History of Any Multi-Drug Resistant Organisms: None Reported Past Surgical History: Cholecystectomy, Uterine Ablation Additional Past Surgical History / Comment(s): R sided thoracentesis twice with last time done on 07/03/17, R eye surgery when 6 yrs old-had tumor behind eye and detached retina. Past Anesthesia/Blood Transfusion Reactions: No Reported Reaction Additional Past Anesthesia/Blood Transfusion Reaction / Comm: Pt recently received blood without reaction. Past Psychological History: No Psychological Hx Reported Smoking Status: Former smoker Past Drug Use History: None Reported - Past Family History Mother History Unknown: Yes Additional Family Medical History / Comment(s): Pt is adopted and does not know parents PMH. Medications and Allergies Home Medications and Allergies Comment(s): Current Medications Acetaminophen (Tylenol Tab) 1,000 mg PO Q6HR PRN PRN Reason: MILD Pain Last Admin: 07/19/17 22:07 Dose: 1,000 mg Albuterol Sulfate (Ventolin Nebulized) 2.5 mg INHALATION RT-Q6H PRN PRN Reason: Shortness Of Breath Last Admin: 07/15/17 16:29 Dose: 2.5 mg Albuterol/Ipratropium (Duoneb 0.5 Mg-3 Mg/3 Ml Soln) 3 ml INHALATION RT-TID BERT Last Admin: 07/20/17 13:15 Dose: 3 ml Alprazolam (Xanax) 0.5 mg PO TID PRN PRN Reason: Anxiety Last Admin: 07/17/17 12:29 Dose: 0.5 mg Clonidine (Catapres) 0.1 mg PO HS BERT Last Admin: 07/19/17 22:09 Dose: Not Given Ibuprofen (Advil) 400 mg PO Q6HR PRN PRN Reason: MODERATE Pain Last Admin: 07/17/17 20:48 Dose: 400 mg Miscellaneous Information (Pneumonia Protocol Utilized) 1 each PO ONCE PRN PRN Reason: Per Protocol Miscellaneous Information (Potassium Per Protocol) 1 each MISCELLANE DAILY PRN ; Protocol PRN Reason: Per Protocol Multivitamins (Theragran) 1 each PO DAILY BERT Last Admin: 07/20/17 08:47 Dose: 1 each Ondansetron HCl (Zofran) 4 mg PO Q6HR PRN PRN Reason: nausea Last Admin: 07/20/17 12:46 Dose: 4 mg Temazepam (Restoril) 30 mg PO HS PRN PRN Reason: Insomnia Last Admin: 07/19/17 20:40 Dose: 30 mg Tramadol HCl (Ultram) 50 mg PO Q6HR PRN PRN Reason: SEVERE Pain Last Admin: 07/19/17 20:39 Dose: 50 mg Home Medications Medication Instructions Recorded Confirmed Type Multivitamins, Thera [Multivitamin 1 tab PO DAILY 02/14/17 07/15/17 History (formulary)] cloNIDine HCL [Catapres] 0.1 mg PO HS 02/14/17 07/15/17 History ALPRAZolam [Xanax] 0.5 mg PO TID PRN 05/09/17 07/15/17 History Acetaminophen Tab [Tylenol] 1,000 mg PO Q6HR PRN 05/09/17 07/15/17 History Albuterol Sulfate [Proair Hfa] 2 puff INHALATION RT-Q6H PRN 06/09/17 07/15/17 History Ibuprofen [Motrin Ib] 400 mg PO Q6HR PRN 06/09/17 07/15/17 History traMADol HCL [Ultram] 50 mg PO Q6HR PRN 06/09/17 07/15/17 History Ipratropium-Albuterol Nebulize 3 ml INHALATION RT-TID #90 07/06/17 07/15/17 Rx [Duoneb 0.5 mg-3 mg/3 ml Soln] ampul.neb Ondansetron [Zofran] 4 mg PO Q6HR PRN 07/15/17 07/15/17 History Allergies Allergy/AdvReac Type Severity Reaction Status Date / Time glucose [From Gammagard S/D] AdvReac Intermediate Unknown Verified 07/17/17 21: 10 glycine [From Gammagard S/D] AdvReac Intermediate Unknown Verified 07/17/17 21: 10 IgA less than or equal to 50 AdvReac Intermediate Unknown Verified 07/17/17 21: 10 mcg/mL [From Gammagard S/D] immune globulin,gamma (IgG) AdvReac Intermediate Unknown Verified 07/17/17 21:10 human [From Gammagard S/D] Physical Exam Vitals: Vital Signs Temp Pulse Pulse Resp BP Pulse Ox 07/20/17 13:31 100 07/20/17 13:15 100 07/20/17 12:31 99.5 F 110 H 16 138/82 93 L 07/20/17 09:31 92 07/20/17 09:20 88 07/20/17 08:00 16 97 07/20/17 07:00 98.5 F 113 H 18 113/68 93 L 07/19/17 23:00 99.4 F 110 H 20 121/76 96 07/19/17 19:34 112 H 07/19/17 19:26 112 H 07/19/17 16:59 115 H 96 07/19/17 16:35 112 H 95 07/19/17 15:50 98.3 F 106 H 20 102/68 98 Intake and Output 07/19/17 07/20/17 07/20/17 22:59 06:59 14:59 Intake Total 780 580 Output Total 150 Balance 780 580 -150 Intake: Oral 780 580 Output: Emesis 150 Other: # Voids 2 1 # Bowel Movements 1 Pleasant 56-year-old woman who is no distress at this time. Is not having significant coughing. No oral lesions HEENT: Anicteric conjunctiva are pink and moist nasal mucosa grossly intact without significant lesions, there is no thrush. Neck: The neck is supple without significant lymphadenopathy or thyromegaly. Lungs: Symmetrical air entry is noted. Few expiratory wheezes are scattered. No bronchial sounds are noted. There are a few crackles at the right base. Heart: Regular rate and rhythm with an audible S1-S2, no S3 no S4. There is no significant murmur click or rub, PMI was nondisplaced. Abdomen: Positive bowel sounds soft and nontender without palpable masses or organomegaly. There was no guarding or rebound. Extremities: The upper extremities have excellent pulses they are symmetric, no significant petechiae or telangiectasia. No splinter hemorrhages were noted. Left lower extremity has no significant lesions masses or edema, right lower extremity has some edema that she relates improved and she is able to elevate the limb. Patient relates that she's had some lower extremity edema since difficulties with her lymphoma diagnosis. Neuro: Awake alert oriented to person place and time. There are no acute new gross focal sensory motor deficits. Results CBC & Chem 7: 07/17/17 09:03 07/17/17 09:03 Labs: Microbiology - Last 24 Hours (Table) 07/17/17 14:05 Gram Stain - Preliminary Pleural Fluid Body Fluid Culture - Preliminary 07/15/17 10:07 Blood Culture - Preliminary Blood No Growth after 120 hours Laboratory Results WBC 5.3 k/uL (3.8-10.6) 07/17/17 09:03 RBC 2.69 m/uL (3.80-5.40) L 07/17/17 09:03 Hgb 7.1 gm/dL (11.4-16.0) L D 07/17/17 09:03 Hct 23.0 % (34.0-46.0) L 07/17/17 09:03 MCV 85.4 fL (80.0-100.0) 07/17/17 09:03 MCH 26.2 pg (25.0-35.0) 07/17/17 09:03 MCHC 30.7 g/dL (31.0-37.0) L 07/17/17 09:03 RDW 18.4 % (11.5-15.5) H 07/17/17 09:03 Plt Count 260 k/uL (150-450) 07/17/17 09:03 Neutrophils % 93 % 07/15/17 10:07 Lymphocytes % 4 % 07/15/17 10:07 Monocytes % 1 % 07/15/17 10:07 Eosinophils % 1 % 07/15/17 10:07 Basophils % 0 % 07/15/17 10:07 Neutrophils # 7.0 k/uL (1.3-7.7) 07/15/17 10:07 Lymphocytes # 0.3 k/uL (1.0-4.8) L 07/15/17 10:07 Monocytes # 0.1 k/uL (0-1.0) 07/15/17 10:07 Eosinophils # 0.0 k/uL (0-0.7) 07/15/17 10:07 Basophils # 0.0 k/uL (0-0.2) 07/15/17 10:07 Hypochromasia Marked 07/17/17 09:03 Poikilocytosis Slight 07/17/17 09:03 Anisocytosis Slight 07/17/17 09:03 Microcytosis Slight 07/15/17 10:07 PT 10.8 sec (9.0-12.0) 07/15/17 10:07 INR 1.1 (<1.2) 07/15/17 10:07 APTT 27.6 sec (22.0-30.0) 07/15/17 10:07 Sodium 135 mmol/L (137-145) L 07/17/17 09:03 Potassium 3.4 mmol/L (3.5-5.1) L 07/17/17 09:03 Chloride 93 mmol/L (98-107) L 07/17/17 09:03 Carbon Dioxide 31 mmol/L (22-30) H 07/17/17 09:03 Anion Gap 11 mmol/L 07/17/17 09:03 BUN 8 mg/dL (7-17) 07/17/17 09:03 Creatinine 0.53 mg/dL (0.52-1.04) 07/17/17 09:03 Est GFR (CKD-EPI)AfAm >90 (>60 ml/min/1.73 sqM) 07/17/17 09:03 Est GFR (CKD-EPI)NonAf >90 (>60 ml/min/1.73 sqM) 07/17/17 09:03 Glucose 122 mg/dL (74-99) H 07/17/17 09:03 Plasma Lactic Acid Marc 1.5 mmol/L (0.7-2.0) 07/15/17 10:07 Uric Acid 5.6 mg/dL (3.7-7.4) 07/15/17 17:58 Calcium 8.4 mg/dL (8.4-10.2) 07/17/17 09:03 Phosphorus 4.7 mg/dL (2.5-4.5) H 07/15/17 17:58 Magnesium 1.8 mg/dL (1.6-2.3) 07/15/17 10:07 Total Bilirubin 0.3 mg/dL (0.2-1.3) 07/17/17 09:03 AST 37 U/L (14-36) H 07/17/17 09:03 ALT 23 U/L (9-52) 07/17/17 09:03 Alkaline Phosphatase 190 U/L (38-126) H 07/17/17 09:03 Total Creatine Kinase <20 U/L (30-135) L 07/15/17 10:07 CK-MB (CK-2) <0.2 ng/mL (0.0-2.4) 07/15/17 10:07 CK-MB (CK-2) Rel Index 07/15/17 10:07 Troponin I <0.012 ng/mL (0.000-0.034) 07/15/17 10:07 Total Protein 4.6 g/dL (6.3-8.2) L 07/17/17 09:03 Albumin 2.5 g/dL (3.5-5.0) L 07/17/17 09:03 Fluid Source Pleural 07/17/17 14:05 Fluid Color Yellow 07/17/17 14:05 Fluid Appearance Clear 07/17/17 14:05 Fluid RBC 740 /uL 07/17/17 14:05 Fluid Nucleated Cells 288 /uL 07/17/17 14:05 Fluid Polynuclear WBCs 15 % 07/17/17 14:05 Fluid Mononuclear WBCs 85 % 07/17/17 14:05 Body Fluid Glucose Source Pleural Fluid 07/17/17 14:05 Fluid Glucose 102 mg/dL 07/17/17 14:05 Body Fluid Protein Source Pleural Fluid 07/17/17 14:05 Fluid Total Protein 3100 mg/dL 07/17/17 14:05 Body Fluid LDH Source Pleural Fluid 07/17/17 14:05 Fluid LDH 197 U/L 07/17/17 14:05 IgG 458.0 mg/dL (700.0-1600.0) L 07/15/17 10:07 IgA 79.3 mg/dL (60.0-350.0) 07/15/17 10:07 IgM <16.9 mg/dL (40.0-280.0) L 07/15/17 10:07 Influenza Type A RNA Not Detected (Not Detectd) 07/15/17 10:07 Influenza Type B (PCR) Not Detected (Not Detectd) 07/15/17 10:07 Flow Results See Pathology Report 07/17/17 14:05 Microbiology 07/17/17 14:05 Pleural Fluid Gram Stain - Preliminary 07/17/17 14:05 Pleural Fluid Body Fluid Culture - Preliminary 07/15/17 10:07 Blood Blood Culture - Preliminary No Growth after 120 hours 07/16/17 08:00 Sputum Gram Stain - Final 07/16/17 08:00 Sputum Sputum Culture - Final 07/17/17 14:05 Pleural Fluid Acid Fast Bacilli Smear - Final 07/17/17 14:05 Pleural Fluid Acid Fast Bacilli Culture - Preliminary 07/17/17 14:05 Pleural Fluid Fungal Culture - Preliminary Laboratory Results WBC 5.3 k/uL (3.8-10.6) 07/17/17 09:03 RBC 2.69 m/uL (3.80-5.40) L 07/17/17 09:03 Hgb 7.1 gm/dL (11.4-16.0) L D 07/17/17 09:03 Hct 23.0 % (34.0-46.0) L 07/17/17 09:03 MCV 85.4 fL (80.0-100.0) 07/17/17 09:03 MCH 26.2 pg (25.0-35.0) 07/17/17 09:03 MCHC 30.7 g/dL (31.0-37.0) L 07/17/17 09:03 RDW 18.4 % (11.5-15.5) H 07/17/17 09:03 Plt Count 260 k/uL (150-450) 07/17/17 09:03 Neutrophils % 93 % 07/15/17 10:07 Lymphocytes % 4 % 07/15/17 10:07 Monocytes % 1 % 07/15/17 10:07 Eosinophils % 1 % 07/15/17 10:07 Basophils % 0 % 07/15/17 10:07 Neutrophils # 7.0 k/uL (1.3-7.7) 07/15/17 10:07 Lymphocytes # 0.3 k/uL (1.0-4.8) L 07/15/17 10:07 Monocytes # 0.1 k/uL (0-1.0) 07/15/17 10:07 Eosinophils # 0.0 k/uL (0-0.7) 07/15/17 10:07 Basophils # 0.0 k/uL (0-0.2) 07/15/17 10:07 Hypochromasia Marked 07/17/17 09:03 Poikilocytosis Slight 07/17/17 09:03 Anisocytosis Slight 07/17/17 09:03 Microcytosis Slight 07/15/17 10:07 PT 10.8 sec (9.0-12.0) 07/15/17 10:07 INR 1.1 (<1.2) 07/15/17 10:07 APTT 27.6 sec (22.0-30.0) 07/15/17 10:07 Sodium 135 mmol/L (137-145) L 07/17/17 09:03 Potassium 3.4 mmol/L (3.5-5.1) L 07/17/17 09:03 Chloride 93 mmol/L (98-107) L 07/17/17 09:03 Carbon Dioxide 31 mmol/L (22-30) H 07/17/17 09:03 Anion Gap 11 mmol/L 07/17/17 09:03 BUN 8 mg/dL (7-17) 07/17/17 09:03 Creatinine 0.53 mg/dL (0.52-1.04) 07/17/17 09:03 Est GFR (CKD-EPI)AfAm >90 (>60 ml/min/1.73 sqM) 07/17/17 09:03 Est GFR (CKD-EPI)NonAf >90 (>60 ml/min/1.73 sqM) 07/17/17 09:03 Glucose 122 mg/dL (74-99) H 07/17/17 09:03 Plasma Lactic Acid Marc 1.5 mmol/L (0.7-2.0) 07/15/17 10:07 Uric Acid 5.6 mg/dL (3.7-7.4) 07/15/17 17:58 Calcium 8.4 mg/dL (8.4-10.2) 07/17/17 09:03 Phosphorus 4.7 mg/dL (2.5-4.5) H 07/15/17 17:58 Magnesium 1.8 mg/dL (1.6-2.3) 07/15/17 10:07 Total Bilirubin 0.3 mg/dL (0.2-1.3) 07/17/17 09:03 AST 37 U/L (14-36) H 07/17/17 09:03 ALT 23 U/L (9-52) 07/17/17 09:03 Alkaline Phosphatase 190 U/L (38-126) H 07/17/17 09:03 Total Creatine Kinase <20 U/L (30-135) L 07/15/17 10:07 CK-MB (CK-2) <0.2 ng/mL (0.0-2.4) 07/15/17 10:07 CK-MB (CK-2) Rel Index 07/15/17 10:07 Troponin I <0.012 ng/mL (0.000-0.034) 07/15/17 10:07 Total Protein 4.6 g/dL (6.3-8.2) L 07/17/17 09:03 Albumin 2.5 g/dL (3.5-5.0) L 07/17/17 09:03 Fluid Source Pleural 07/17/17 14:05 Fluid Color Yellow 07/17/17 14:05 Fluid Appearance Clear 07/17/17 14:05 Fluid RBC 740 /uL 07/17/17 14:05 Fluid Nucleated Cells 288 /uL 07/17/17 14:05 Fluid Polynuclear WBCs 15 % 07/17/17 14:05 Fluid Mononuclear WBCs 85 % 07/17/17 14:05 Body Fluid Glucose Source Pleural Fluid 07/17/17 14:05 Fluid Glucose 102 mg/dL 07/17/17 14:05 Body Fluid Protein Source Pleural Fluid 07/17/17 14:05 Fluid Total Protein 3100 mg/dL 07/17/17 14:05 Body Fluid LDH Source Pleural Fluid 07/17/17 14:05 Fluid LDH 197 U/L 07/17/17 14:05 IgG 458.0 mg/dL (700.0-1600.0) L 07/15/17 10:07 IgA 79.3 mg/dL (60.0-350.0) 07/15/17 10:07 IgM <16.9 mg/dL (40.0-280.0) L 07/15/17 10:07 Influenza Type A RNA Not Detected (Not Detectd) 07/15/17 10:07 Influenza Type B (PCR) Not Detected (Not Detectd) 07/15/17 10:07 Flow Results See Pathology Report 07/17/17 14:05 Microbiology 07/17/17 14:05 Pleural Fluid Gram Stain - Preliminary 07/17/17 14:05 Pleural Fluid Body Fluid Culture - Preliminary 07/15/17 10:07 Blood Blood Culture - Preliminary No Growth after 120 hours 07/16/17 08:00 Sputum Gram Stain - Final 07/16/17 08:00 Sputum Sputum Culture - Final 07/17/17 14:05 Pleural Fluid Acid Fast Bacilli Smear - Final 07/17/17 14:05 Pleural Fluid Acid Fast Bacilli Culture - Preliminary 07/17/17 14:05 Pleural Fluid Fungal Culture - Preliminary Assessment and Plan (1) 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 The patient had just received her course of chemotherapy including Rituxan. The presentation the patient did have fever and this is now abated. The patient did have significant right-sided effusion that she's undergone thoracentesis for with marked resolution. She's feeling much better. She's not having significant cough or sputum production at this time and no hemoptysis. The patient has no leukopenia and does not have neutropenia. She does have a mildly low IgG level but did not do well with an attempt for IVIG therapy. At this time without having multiple infections it is not imperative that she receives IVIG at this time. There was concern for potential pneumonia when she was receiving antibiotic therapy. At this time there is no evidence of pneumonia, she has fever like the basis of underlying disease and the chemotherapy. Antibiotic therapy is discontinued. Oncology will give advice when she is ready for discharge to home. Current Visit: Yes Status: Acute Code(s): R50.9 - FEVER, UNSPECIFIED SNOMED Code(s): 882336602
--- NOTE | 2017-07-20 16:07 | PN ---
PROGRESS NOTE DATE OF SERVICE: 07/20/17 She was seen again on 07/30/2017. She is less short of breath. She has not had any fever or chills. Doing better overall. PHYSICAL EXAMINATION: Respiratory rate is 16, pulse rate of 110, temperature 99.5, blood pressure 138/82, O2 saturation on room air is 93%. HEENT: Unremarkable. Chest reveals decreased breath sounds on the left base. Cardiovascular system revealed an S1, S2. No S3, no S4. ABDOMEN: Soft. There is no edema. Microbiological cultures are showing no growth. IMPRESSION: At this time: 1. Right-sided pleural effusion, most likely secondary to post chemotherapy break down of her lymphoma causing increased oncotic pressure allowing for the fusion. 2. Small left-sided effusion, which is due to the same process. 3. Non-Hodgkin's lymphoma status post treatment with Rituxan, which may have caused the fever. 4. No evidence of infection per ID as well. Agree with keeping the patient off antibiotics. Increase her activity level. Keep her as comfortable as possible. Her prognosis is fair. From a pulmonary standpoint patient is stable for possible discharge. MMODL / IJN: [id number] /
[2017-07-20] MEDS: cloNIDine HCL 0.1 MG TAB PO SCH (21:21)
[2017-07-20] MEDS: traMADol 50 MG TAB PO PRN (21:21)
[2017-07-20] MEDS: TEMAZEPAM 30 MG CAP PO PRN (21:21)
--- NOTE | 2017-07-21 00:43 | P.PN ---
Subjective Progress Note Date: 07/20/17 Principal diagnosis: Non-Hodgkin lymphoma Fever of unknown origin Patient is a 56-year-old white female who is undergoing treatment for follicular lymphoma and has struggled with significant shortness of breath. She has presented again with pleural effusion. 07/17/2017 Patient had thoracentesis done on right side today. Patient says that her breathing status is much improved now. Pulmonary and oncology is following. T-max 104.3 No nausea vomiting or abdominal pain. No cough is from production. No other signs of infection. Cultures have been negative so far patient is being continued on empiric antibiotics. 07/18/2017 Patient has been febrile today. Repeat chest x-ray showed increasing right- sided opacities, worsening pulmonary edema. Pulmonary is on board. Otherwise patient did receive chemotherapy last night. No complaints of chest pain. No nausea vomiting or abdominal pain. 07/19/2017 Patient denied any complaints of chest pain. No worsening shortness of breath. Symptomatically much improved. Otherwise T-max was 100.8 last night. Currently on broad-spectrum antibiotics in the form of Zosyn and Levaquin. Pulmonary is following. ID was consulted for further evaluation. Fever thought to be due to underlying malignancy. Currently sitting in a chair comfortably. No nausea vomiting abdominal pain. No other acute overnight issues otherwise. 07/20/2017 Patient has been afebrile today. No complaints of worsening shortness of breath or chest pain. Patient was seen by ID and patient was to discontinue antibiotics at this time due to no evidence of pneumonia or any other source of infection. No nausea vomiting abdominal pain. Tolerating oral diet. Oncology and pulmonary is following. All other review of systems negative except the above Active Medications Generic Name Dose Route Start Last Admin Trade Name Freq PRN Reason Stop Dose Admin Acetaminophen 1,000 mg 07/15/17 22:01 07/17/17 18:24 Tylenol Tab PO 1,000 mg Q6HR PRN Administration MILD Pain Albuterol Sulfate 2.5 mg 07/15/17 11:39 07/15/17 16:29 Ventolin Nebulized INHALATION 2.5 mg RT-Q6H PRN Administration Shortness Of Breath Albuterol/Ipratropium 3 ml 07/16/17 08:00 07/17/17 20:42 Duoneb 0.5 Mg-3 Mg/3 Ml Soln INHALATION 3 ml RT-TID BERT Administration Alprazolam 0.5 mg 07/15/17 21:14 07/17/17 12:29 Xanax PO 0.5 mg TID PRN Administration Anxiety Clonidine 0.1 mg 07/15/17 21:00 07/17/17 20:48 Catapres PO 0.1 mg HS BERT Administration Piperacillin/Tazobactam/ 50 mls @ 12.5 mls/hr 07/17/17 20:00 07/17/17 20:57 Dextrose 3.375 gm/ IV Solution IVPB 12.5 mls/hr Q8H BERT Administration Ibuprofen 400 mg 07/15/17 22:01 07/17/17 20:48 Advil PO 400 mg Q6HR PRN Administration MODERATE Pain Levofloxacin 750 mg 07/17/17 12:00 07/17/17 11:53 Levaquin PO 750 mg Q24H BERT Administration Miscellaneous Information 1 each 07/15/17 11:37 Pneumonia Protocol Utilized PO ONCE PRN Per Protocol Multivitamins 1 each 07/16/17 09:00 07/17/17 11:53 Theragran PO 1 each DAILY BERT Administration Ondansetron HCl 4 mg 07/15/17 21:14 07/17/17 18:49 Zofran PO 4 mg Q6HR PRN Administration nausea Temazepam 30 mg 07/15/17 22:02 07/17/17 20:48 Restoril PO 30 mg HS PRN Administration Insomnia Tramadol HCl 50 mg 07/15/17 21:14 07/17/17 20:48 Ultram PO 50 mg Q6HR PRN Administration SEVERE Pain Objective - Vital Signs Vital signs: Vital Signs Temp 99.5 F 07/20/17 12:31 Pulse 100 07/20/17 13:31 Resp 16 07/20/17 12:31 BP 138/82 07/20/17 12:31 Pulse Ox 93 L 07/20/17 12:31 Intake & Output 07/19/17 07/20/17 07/20/17 18:59 06:59 18:59 Intake Total 1200 1160 Output Total 150 Balance 1200 1160 -150 Intake: Oral 1200 1160 Output: Emesis 150 Other: # Voids 2 2 1 # Bowel Movements 1 - Exam PHYSICAL EXAMINATION: Patient is lying in the bed comfortably, no acute distress, awake alert and oriented.. HEENT: Normocephalic. Neck is supple. Pupils reactive. Nostrils clear. Oral cavity is moist. Ears reveal no drainage. Neck reveals no JVD, carotid bruits, or thyromegaly. CHEST EXAMINATION: Trachea is central. Symmetrical expansion. Right basilar crackles. No wheezing or rhonchi CARDIAC: Normal S1, S2 with no gallops. No murmurs ABDOMEN: Soft. Bowel sounds normal. No organomegaly. No abdominal bruits. Extremities: 2+ edema. No clubbing or cyanosis Neurologically awake, alert, oriented x3 with well-coordinated movements. No focal deficits noted Skin: No rash or skin lesions. Psychiatric: Cooperative. Nonsuicidal Musculoskeletal: No joint swelling or deformity. Normal range of motion. - Labs CBC & Chem 7: 07/17/17 09:03 07/17/17 09:03 Labs: Microbiology - Last 24 Hours (Table) 07/17/17 14:05 Gram Stain - Preliminary Pleural Fluid Body Fluid Culture - Preliminary 07/15/17 10:07 Blood Culture - Preliminary Blood No Growth after 120 hours Assessment and Plan Assessment: Dyspnea secondary to large right-sided pleural effusion status post thoracentesis Fever of unknown origin. Likely due to cancer related Follicular lymphoma grade I of extranodal and solid organ sites Chronic anemia Bilateral lower extremity swelling. Left greater than right Plan: Patient was on broad-spectrum antibiotics in the form of Levaquin and Zosyn. Currently discontinued. Patient is status post thoracentesis on 07/17/2017. Otherwise patient is undergoing chemotherapy . Oncology and pulmonary is following. Further recommendations based on the clinical course. Time with Patient: Greater than 30
[2017-07-21] MEDS: SODIUM CHLORIDE 0.9% 1,000 ML IV SCH (02:44)
[2017-07-21] MEDS: IPRATROPIUM-ALBUTEROL 3 ML NEB INHALATION SCH ×2 (08:13→13:44)
--- NOTE | 2017-07-21 10:50 | P.PN ---
Subjective Progress Note Date: 07/21/17 Interval history 07/21/17- patient is being seen examining evaluated today on rounds. Patient is resting up in bed on room air. Is requesting to go home. She did have a thoracentesis on 07/17/17 and had 2.5 L removed. She states her breathing is better. She denies any current shortness of breath cough or congestion at this time. She was seen by infectious disease and they recommended no antibiotics at this time. She is afebrile no further complaints. Objective - Vital Signs Vital signs: Vital Signs Temp 98.7 F 07/21/17 08:00 Pulse 104 H 07/21/17 08:23 Resp 16 07/21/17 08:14 BP 113/72 07/21/17 08:00 Pulse Ox 93 L 07/21/17 08:14 Intake & Output 07/20/17 07/21/17 07/21/17 18:59 06:59 18:59 Intake Total 1060 Output Total 150 Balance -150 1060 Intake: Oral 1060 Output: Emesis 150 Other: # Voids 1 - Exam GENERAL EXAM: Alert, comfortable in no apparent distress. HEAD: Normocephalic. EYES: Normal reaction of pupils, equal size. NOSE: Clear with pink turbinates. THROAT: No erythema or exudates. NECK: No masses, no JVD. CHEST: No chest wall deformity. LUNGS: Lungs noted to be clear throughout with some decreased breath sounds on the left base. CVS: S1 and S2 normal with no audible mumurs, regular rhythm. ABDOMEN: No hepatosplenomegaly, normal bowel sounds, no guarding or rigidity. EXTREMITIES: No edema noted, pedal pulses palpable. CENTRAL NERVOUS SYSTEM: No focal deficits, tone is normal in all 4 extremities. - Labs CBC & Chem 7: 07/17/17 09:03 07/17/17 09:03 Labs: Microbiology - Last 24 Hours (Table) 07/17/17 14:05 Gram Stain - Preliminary Pleural Fluid Body Fluid Culture - Preliminary 07/15/17 10:07 Blood Culture - Preliminary Blood No Growth after 120 hours Assessment and Plan Assessment: Assessment Right-sided pleural effusion most likely secondary to post chemotherapy Small left sided pleural effusion related to above Non-Hodgkin's lymphoma status post treatment with Rituxan Left leg swelling Plan Patient could be cleared for discharge from a pulmonary standpoint. Medications have been reviewed and will be continued as ordered. Continue with pulmonary hygiene, coughing and deep breathing exercises, and supportive care. Supplemental oxygen to maintain oxygen saturations of 92% or better if needed. Continue nebulizer treatments. GI and DVT prophylaxis. Continue with oncology recommendations. Pathology from thoracentesis procedure pending. We will continue to monitor labs/results and adjust treatment as necessary. Further recommendations pending. I performed an examination of the patient and discussed their management with the nurse practitioner. I have reviewed the nurse practitioner's note and agree with the documented findings and plan of care.
[2017-07-21] MEDS: MULTIVITAMINS, THERA 1 EACH TAB PO SCH (11:03)
--- NOTE | 2017-07-21 13:24 | P.PN ---
Subjective Progress Note Date: 07/21/17 Patient seen in follow-up this am Objective - Vital Signs Vital signs: Vital Signs Temp 99.1 F 07/21/17 11:15 Pulse 108 H 07/21/17 11:15 Resp 17 07/21/17 11:15 BP 143/65 07/21/17 11:15 Pulse Ox 95 07/21/17 11:15 Intake & Output 07/20/17 07/21/17 07/21/17 18:59 06:59 18:59 Intake Total 1060 Output Total 150 Balance -150 1060 Intake: Oral 1060 Output: Emesis 150 Other: # Voids 1 - Constitutional General appearance: Present: cooperative, no acute distress - EENT Eyes: Present: dentition normal ENT: Present: NA/AT, normal oropharynx - Neck Neck: Present: normal ROM - Respiratory Respiratory: bilateral: CTA (No increased effort) - Cardiovascular Heart rate: 106 Rhythm: regular - Gastrointestinal General gastrointestinal: Present: normal bowel sounds, soft - Integumentary Integumentary: Present: pale - Neurologic Neurologic: Present: CNII-XII intact - Musculoskeletal Musculoskeletal: Present: generalized weakness, strength equal bilaterally - Psychiatric Psychiatric: Present: A&O x's 3, appropriate affect, intact judgment & insight - Labs CBC & Chem 7: 07/17/17 09:03 07/17/17 09:03 Labs: Microbiology - Last 24 Hours (Table) 07/17/17 14:05 Gram Stain - Final Pleural Fluid Body Fluid Culture - Final 07/15/17 10:07 Blood Culture - Final Blood No Growth after 144 hours Assessment and Plan Plan: Assessment and Plan (1) Fever, unknown origin Narrative/Plan: Afebrile over 24 hours, today 99.1F Cultures are negative, pt remains on empiric abx. Quite possibly tumor fever which we would anticipate resolution of as pt gets treated for lymphoma. She has only received cycle 1, day 1 of 2 of treatment. Plan is to give day 2 of treatment if she is improved before end of next week, if not then day 2 not be given and pt will proceed with treatment schedule otherwise. - Follow-up Appointment at the [facility] on 07/22/17 at 10:45 added to discharge Current Visit: Yes Status: Acute Priority: High Code(s): R50.9 - FEVER, UNSPECIFIED SNOMED Code(s): 0359714 (2) Anemia Narrative/Plan: Anemia of inflammation and r/t disease and treatment, no need for supplemental iron. No need for PRBC transfusion at this time - Will recheck tomorrow at follow-up. If patient is not discharged for any reason please recheck in am. 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 If persistent or progressive biopsy will be considered Current Visit: Yes Status: Acute Priority: Medium Code(s): M79.89 - OTHER SPECIFIED SOFT TISSUE DISORDERS SNOMED Code(s): 659566485 (5) Pleural effusion, right Narrative/Plan: - Status Post Thoracentesis on 07/18 - Cytology still pending - She may require PRN based on symptoms - If related to mechanical obstruction from lymphoma then would anticipate improvement as lymphoma is treated. Current Visit: Yes Status: Acute Priority: High Code(s): J90 - PLEURAL EFFUSION, NOT ELSEWHERE CLASSIFIED SNOMED Code(s): 01955616 Attests: I have performed a History and Physical examination of the pt, discussed with dictator. I agree with dictators note, documented as a scribe.
[2017-07-21 15:41] VITALS: BP 120/72; PULSE 106; RESP 20; TEMP 98.3
== END 2017-07-21 15:49 | disposition home or self-care (01) | DRG 186 ==
LOC: EC 09:41 → 4MS4W 11:37 → 6PED 13:12
PROVIDERS: ADMIT Family Medicine; ATTEND Family Medicine
PROC: 0W993ZX Drainage of Right Pleural Cavity, Percutaneous Approach, Diagnostic (ICD-10-PCS; principal; 2017-07-15)
DX: J90 Pleural effusion, not elsewhere classified (principal); E88.3 Tumor lysis syndrome; C82.09 Follicular lymphoma grade I, extranodal and solid organ sites; J81.1 Chronic pulmonary edema; T45.1X5A Adverse effect of antineoplastic and immunosuppressive drugs, initial encounter; D63.0 Anemia in neoplastic disease; D89.9 Disorder involving the immune mechanism, unspecified; F41.9 Anxiety disorder, unspecified; H54.62 Unqualified visual loss, left eye, normal vision right eye; I10 Essential (primary) hypertension; J42 Unspecified chronic bronchitis; R50.81 Fever presenting with conditions classified elsewhere; I95.9 Hypotension, unspecified; M79.89 Other specified soft tissue disorders; K57.90 Diverticulosis of intestine, part unspecified, without perforation or abscess without bleeding; G89.29 Other chronic pain; M54.5 Low back pain; Z79.899 Other long term (current) drug therapy; Z90.49 Acquired absence of other specified parts of digestive tract; Z87.891 Personal history of nicotine dependence; Y92.9 Unspecified place or not applicable
CPT/HCPCS: 36415; 71045; 71046; 76604; 80053; 82550; 82553; 82784; 82945; 83605; 83615; 83735; 84100; 84157; 84484; 84550; 85025; 85027; 85610; 85730; 87040; 87070; 87102; 87116; 87205; 87206; 87502; 88108; 88305; 89050; 93005; 94640; 94760; 96365; 99285

== ENCOUNTER 2017-08-07 13:57 | Day surgery (SDC) | payer SELFPAY ==
[2017-08-07 14:24] VITALS: TEMP 98.4
--- NOTE | 2017-08-07 15:28 | US ---
EXAMINATION TYPE: US chest DATE OF EXAM: 08/07/2017 COMPARISON: NONE CLINICAL HISTORY: pre thoracentesis. 3rd floor procedure patient with SOB and h/o thoracentesis EXAM MEASUREMENTS: Right Pleural Effusion fluid pocket: 10.9 cm Right skin to fluid thickness: 3.2 cm Right side marked for possible thoracentesis outside the dept. Pulmonologists are able to review the images in the patient?s EMR. IMPRESSIONS: Moderate right pleural effusion as described above.
[2017-08-07 15:45] VITALS: BP 146/88; PULSE 89; RESP 16
--- NOTE | 2017-08-07 15:46 | P.PCN ---
Date of Procedure: 08/07/17 Preoperative Diagnosis: Recurrent right pleural effusion, shortness of breath, lymphoma Postoperative Diagnosis: As above Procedure(s) Performed: Right thoracentesis Anesthesia: local Surgeon: John Lynne Estimated Blood Loss (ml): 0 Disposition: same day Indications for Procedure: Shortness of breath, lymphoma, right pleural effusion Operative Findings: as below Description of Procedure: Patient prepared and draped in a usual fashion informed consent obtained from the patient procedure explained to the patient at length including risk alternative and complication ultrasound was utilized to nan the maximum depth of fluid, 1% lidocaine was infiltrated in posterior lateral right thoracic wall after infiltration of the lidocaine the needle was advanced over the upper margin of the rib the pleural cavity was axis like to restart yellow pleural fluid was aspirated stab incision of less than 1/8 of centimeter was performed and catheter in needle was placed over the upper margin of the rib from catheter left in position and 1.1 L of dark yellow pleural fluid aspirated patient tolerated procedure well no complication noted post procedure chest x- ray fluid is sent for Gram stain and culture cytology
--- NOTE | 2017-08-07 15:53 | XR ---
EXAMINATION TYPE: XR chest 1V portable DATE OF EXAM: 08/07/2017 COMPARISON: 07/17/2017 HISTORY: Status post right-sided thoracentesis. TECHNIQUE: Single frontal view of the chest is obtained. FINDINGS: There is near complete resolution of the previously seen right multifocal patchy opacities with linear right basilar atelectasis remaining. The previously seen right pleural effusion has also nearly resolved in the interim with trace bilateral pleural effusions and additional subsegmental le ft basilar atelectasis remaining. No pneumothorax is seen. Cardiomediastinal silhouette remains enlar ged. Osseous structures are grossly intact. IMPRESSION: No postprocedural pneumothorax. Near complete resolution of the previously seen right si ded multifocal patchy opacities and pleural effusion. Bibasilar atelectasis and trace pleural effusio ns remain.
[2017-08-07 20:17] LABS: Appearance,BF Hazy; Color,BF Yellow; Nucleated Cells, Body Fluid 45 /uL
[2017-08-07 20:18] LABS: RBC, Body Fluid 1060 /uL
[2017-08-07 20:19] LABS: Mononuclear WBC,Body Fluid 90 %; Polynuclear WBC,Body Fluid 10 %; Total Cells Counted,Body Fluid 100
== END 2017-08-08 11:24 ==
LOC: RADUSWWP 13:57 → PROCWHC3 08-08 11:24
PROVIDERS: ATTEND Internal Medicine Sleep Medicine
DX: J90 Pleural effusion, not elsewhere classified (principal); C85.90 Non-Hodgkin lymphoma, unspecified, unspecified site
CPT/HCPCS: 88108; 88305; 89050; 88342; 88341; 87070; 87205; 87116; 87102; 87206; 82945; 83615; 84157; 71045; 76604; 32554; J2001

== ENCOUNTER → 2017-09-09 | Outpatient (CLI) | payer SELFPAY ==
[2017-09-09 14:25] LABS: Blood Urea Nitrogen 11 mg/dL (7-17)
--- NOTE | 2017-09-09 16:23 | CT ---
EXAMINATION TYPE: CT ChestAbdPelvis w con DATE OF EXAM: 09/09/2017 COMPARISON: CT chest abdomen and pelvis February 14, 2017 and newer CTA chest June 09, [address] ab domen and pelvis May 09, 2017 HISTORY: Non hodgkins lymphoma. Originally diagnosed February 2017, completed chemotherapy September 09, [address] DLP: 665.8 mGycm. Automated Exposure Control for Dose Reduction was Utilized. CONTRAST: CT scan of the thorax, abdomen and pelvis is performed with oral and with IV Contrast, patient inject ed with 100 mL of Isovue M300. FINDINGS: LUNGS: There is persistent small right pleural effusion with associated compressive atelectasis in th e right lung base that is markedly improved from most recent CT. Slightly nodular pleural thickening or focal fluid anterolateral right mid lung axial image 33 there is present on current study of uncer tain etiology or significance. No left-sided effusion is seen. No suspicious nodule or mass is otherw ise present. Tracheobronchial tree is patent. MEDIASTINUM: There is marked interval improvement in bilateral hilar and mediastinal lymph nodes. Sub centimeter lymph nodes are now present on current study. Coronary artery calcification is redemonstra sheila which is noted marker for coronary artery disease. OTHER: Prominent but subcentimeter left axillary lymph nodes are stable. LIVER/GB: Gallbladder is surgically absent. Vague hypodense subcentimeter lesions in liver are signif icantly improved from most recent prior exam, for reference to lesions axial image 54 noted. PANCREAS: No significant abnormality is seen. SPLEEN: Heterogeneity of spleen without distinct lesions is felt to reflect improvement from prior st udy. ADRENALS: No significant abnormality is seen. KIDNEYS: Nondependent air in bladder is noted. Correlate for recent catheterization otherwise other e tiologies need to be considered such as fistula formation. Symmetric cortical medullary uptake and ex cretion from both kidneys is seen. BOWEL: Oral contrast does not reach colonic level making bowel evaluation suboptimal. There is no joe picious small or large bowel dilatation. There is prominent diverticulosis in the sigmoid colon witho ut convincing evidence of inflammatory change to suggest acute diverticulitis. Hypodense 1 cm area le ft pelvis axial image 96 could reflect left ovary remnant or small focal fluid possible tiny abscess related to prior diverticulitis. Some indistinct margins from diverticula in the left pelvis from rocio dder are noted. GENITAL ORGANS: Anteverted uterus is present.. LYMPH NODES: Prominent but subcentimeter bilateral groin lymph nodes are seen, left greater than righ t, largest measures 1.5 x 1.0 just under cm axial image 101. This is significantly improved from prio r exams. Prominent but subcentimeter retroperitoneal adenopathy is significantly improved without gre ater than 1 cm adenopathy, largest lymph node aortocaval region original study axial image 33 is subc entimeter in size current study axial image 64. OSSEOUS STRUCTURES: Vacuum disc phenomenon with disc space narrowing lumbosacral junction is present . Multilevel Schmorl nodes are seen. There are multilevel areas of new suspicious sclerosis and lucen cy throughout the spine felt to reflect neoplastic involvement for reference mid and lower thoracic v ertebra sagittal image 59 are marked. OTHER: No significant additional abnormality is seen. IMPRESSION: 1. Marked interval improvement in adenopathy as well as liver and splenic lesions. New diffuse osseous lesions however are felt present. 2. Marked interval improvement in right-sided pleural effusion. 3. Suspect residual tiny left pelvic diverticular abscess. Suspect colonic vesicular fistula related to prior diverticulitis, correlate clinically.
== END | disposition home or self-care (01) ==
LOC: RADCTMAIN 13:49
PROVIDERS: ATTEND Internal Medicine Hematology & Oncology
DX: C82.08 Follicular lymphoma grade I, lymph nodes of multiple sites (principal); R59.0 Localized enlarged lymph nodes; L98.9 Disorder of the skin and subcutaneous tissue, unspecified
CPT/HCPCS: 82565; 84520; 71260; 74177; 36415; Q9967

== ENCOUNTER → 2018-02-03 | Outpatient (CLI) | payer SELFPAY ==
[~2018-02-03] MED LIST: ACETAMINOPHEN TAB 325 MG TAB PO NR; FAMOTIDINE 20 MG/2 ML VIAL IVP NR; RITUXIMAB IV NR; SODIUM CHLORIDE 0.9% 500 ML 500 ML in EMPTY BAG 1 BAG IV PRN; SODIUM CHLORIDE 0.9% IV NR; diphenhydrAMINE 50 MG/ML 1 ML VIAL IVP NR; methylPREDNISolone SOD SUCCI 125 MG/2 ML VIAL IVP NR
[2018-02-03 11:17] VITALS: RESP 16; TEMP 97.9
[2018-02-03 11:40] LABS: Basophils % (A) 0 %; Eosinophils # (A) 0.1 k/uL (0-0.7); Eosinophils % (A) 3 %; HGB 12.6 gm/dL (11.4-16.0); Lymphocytes # (A) 0.5 k/uL (1.0-4.8); Lymphocytes % (A) 12 %; MCHC 33.9 g/dL (31.0-37.0); MCV 88.5 fL (80.0-100.0); Mean Platelet Volume 6.9; Monocytes # (A) 0.3 k/uL (0-1.0); Monocytes % (A) 7 %; Neutrophils # (A) 2.9 k/uL (1.3-7.7); Neutrophils % (A) 74 %; Platelet Count 220 k/uL (150-450); RBC 4.19 m/uL (3.80-5.40); RDW 14.2 % (11.5-15.5); WBC 3.9 k/uL (3.8-10.6)
[2018-02-03 14:05] VITALS: BP 138/86; PULSE 80
== END | disposition home or self-care (01) ==
LOC: PROCWHC3 10:49
PROVIDERS: ATTEND Internal Medicine Hematology & Oncology
DX: Z51.12 Encounter for antineoplastic immunotherapy (principal); C82.08 Follicular lymphoma grade I, lymph nodes of multiple sites
CPT/HCPCS: 85025; 96375; 96413; 96415; 36415; J1200; J2930; J9310

== ENCOUNTER → 2018-03-31 | Outpatient (CLI) | payer SELFPAY ==
[2018-03-31 10:32] VITALS: RESP 16; TEMP 98.2
[2018-03-31 11:22] LABS: HCT 38.5 % (34.0-46.0); HGB 12.6 gm/dL (11.4-16.0); MCHC 32.9 g/dL (31.0-37.0); MCV 85.3 fL (80.0-100.0); Mean Platelet Volume 6.9; Platelet Count 233 k/uL (150-450); RBC 4.51 m/uL (3.80-5.40); RDW 14.3 % (11.5-15.5); WBC 3.8 k/uL (3.8-10.6)
[2018-03-31 11:42] LABS: Band Neutrophils % 2 %; Lymphocytes # (M) 0.57 k/uL (1.0-4.8); Monocytes # (M) 0.27 k/uL (0-1.0); Neutrophils % (M) 76 %; Nucleated Red Blood Cells 0 /100 WBC (0-0); Total Cells Counted 100
[2018-03-31 11:43] LABS: Poikilocytosis (M) Present
[2018-03-31 14:00] VITALS: BP 141/76; PULSE 87
== END | disposition home or self-care (01) ==
LOC: PROCWHC3 09:54
PROVIDERS: ATTEND Internal Medicine Hematology & Oncology
DX: C82.08 Follicular lymphoma grade I, lymph nodes of multiple sites (principal)
CPT/HCPCS: 85025; 96375; 96413; 96415; 36415; J1200; J2930; J9312

== ENCOUNTER → 2018-05-26 | Outpatient (CLI) | payer OTHER ==
[~2018-05-26] MED LIST changes: +FAMOTIDINE 20 MG/2 ML VIAL IV NR; -FAMOTIDINE 20 MG/2 ML VIAL IVP NR; +methylPREDNISolone SOD SUCCI 125 MG/2 ML VIAL IV NR; -methylPREDNISolone SOD SUCCI 125 MG/2 ML VIAL IVP NR
[2018-05-26 09:53] VITALS: RESP 16; TEMP 98
[2018-05-26 10:13] LABS: Basophils % (A) 0 %; Eosinophils # (A) 0.1 k/uL (0-0.7); Eosinophils % (A) 2 %; HCT 37.4 % (34.0-46.0); HGB 12.6 gm/dL (11.4-16.0); Lymphocytes # (A) 0.4 k/uL (1.0-4.8); Lymphocytes % (A) 11 %; MCH 29.1 pg (25.0-35.0); MCHC 33.8 g/dL (31.0-37.0); MCV 86.1 fL (80.0-100.0); Mean Platelet Volume 6.8; Monocytes # (A) 0.4 k/uL (0-1.0); Monocytes % (A) 9 %; Neutrophils # (A) 2.9 k/uL (1.3-7.7); Neutrophils % (A) 73 %; Platelet Count 239 k/uL (150-450); RBC 4.35 m/uL (3.80-5.40); RDW 14.4 % (11.5-15.5)
[2018-05-26 12:19] VITALS: BP 122/78; PULSE 85
== END ==
LOC: PROCWHC3 09:25 → EEVIPCON 09:30
PROVIDERS: ATTEND Internal Medicine Hematology & Oncology
DX: C82.08 Follicular lymphoma grade I, lymph nodes of multiple sites (principal)
CPT/HCPCS: 85025; 96375; 96413; 96415; 36415; J1200; J2930; J9312

== ENCOUNTER → 2018-07-27 | Outpatient (CLI) | payer SELFPAY ==
[2018-07-27 09:47] VITALS: TEMP 98.1
[2018-07-27 10:16] LABS: Basophils % (A) 0 %; Eosinophils # (A) 0.1 k/uL (0-0.7); Eosinophils % (A) 2 %; HCT 37.6 % (34.0-46.0); HGB 12.7 gm/dL (11.4-16.0); Lymphocytes # (A) 0.5 k/uL (1.0-4.8); Lymphocytes % (A) 10 %; MCHC 33.9 g/dL (31.0-37.0); MCV 85.8 fL (80.0-100.0); Mean Platelet Volume 7.2; Monocytes # (A) 0.3 k/uL (0-1.0); Monocytes % (A) 6 %; Neutrophils # (A) 4.2 k/uL (1.3-7.7); Neutrophils % (A) 79 %; Platelet Count 235 k/uL (150-450); RBC 4.38 m/uL (3.80-5.40); RDW 14.6 % (11.5-15.5); WBC 5.3 k/uL (3.8-10.6)
[2018-07-27 10:54] VITALS: RESP 18
[2018-07-27 12:04] VITALS: BP 126/95; PULSE 73
== END ==
LOC: PROCWHC3 09:34
PROVIDERS: ATTEND Internal Medicine Hematology & Oncology
DX: Z51.11 Encounter for antineoplastic chemotherapy (principal); C82.08 Follicular lymphoma grade I, lymph nodes of multiple sites
CPT/HCPCS: 85025; 96375; 96413; 96415; 36415; J1200; J2930; J9312

== ENCOUNTER → 2018-08-04 | Outpatient (CLI) | payer SELFPAY ==
[2018-08-04 11:29] LABS: Blood Urea Nitrogen 10 mg/dL (7-17)
--- NOTE | 2018-08-04 14:11 | CT ---
EXAMINATION TYPE: CT ChestAbdPelvis w con DATE OF EXAM: 08/04/2018 COMPARISON: 01/26/2018 HISTORY: Non hodgkins lymphoma. CT DLP: 1258.8 mGycm Automated exposure control for dose reduction was used. CONTRAST: CT scan of the chest, abdomen and pelvis is performed with Oral Contrast and with IV Contrast, patien t injected with 100 mL of Isovue M300. FINDINGS: LUNGS: Subsegmental vague groundglass changes are seen in bilateral lower lobes likely the basis of a telectasis. No sizable pulmonary nodule. No pleural effusion or pneumothorax.. MEDIASTINUM: There are no greater than 1 cm hilar or mediastinal lymph nodes. No pericardial effusi on is seen. Mild coronary artery calcifications are noted seen within the left main and left anterior descending coronary arteries . Subcentimeter left thyroid nodule. LIVER/GB: Postcholecystectomy changes are noted. No sizable intrahepatic lesion on today's exam. PANCREAS: No significant abnormality is seen. SPLEEN: No significant abnormality is seen. ADRENALS: No significant abnormality is seen. KIDNEYS: No significant abnormality is seen. BOWEL: Diverticulosis of the colon noted. LYMPH NODES: No greater than 1 cm abdominal or pelvic lymph nodes are appreciated. Specifically there are no pathologic lymph nodes within the inguinal canal. OSSEOUS STRUCTURES: Stable bilateral pattern to the osseous structures. Stable compression deformity involving L2 and Schmorl's node involving L3.. OTHER: Right adnexal soft tissue nodule measuring 1.5 cm it is retrospectively separate stable likely related to the right ovary. Nonspecific calcification uterine body possibly related to degenerating uterine fibroid. IMPRESSION: 1. No pathologic adenopathy in today's exam. 2. No definite hepatic lesion seen on today's exam. 3. 1.5 cm right adnexal lesion likely related the right ovary. 4. Stable osseous changes which could be compatible with osseous lymphoma. 5. Groundglass changes within the lungs likely on the basis of atelectasis.
== END | disposition home or self-care (01) ==
LOC: RADCTMAIN 10:29
PROVIDERS: ATTEND Internal Medicine Hematology & Oncology
DX: N83.8 Other noninflammatory disorders of ovary, fallopian tube and broad ligament (principal); C82.08 Follicular lymphoma grade I, lymph nodes of multiple sites
CPT/HCPCS: 82565; 84520; 71260; 74177; 36415; Q9967 ×2

== ENCOUNTER → 2018-09-30 | Outpatient (CLI) | payer BC ==
[~2018-09-30] MED LIST changes: -FAMOTIDINE 20 MG/2 ML VIAL IV NR; +FAMOTIDINE 20 MG/2 ML VIAL IVP NR; -methylPREDNISolone SOD SUCCI 125 MG/2 ML VIAL IV NR; +methylPREDNISolone SOD SUCCI 125 MG/2 ML VIAL IVP NR
[2018-09-30 09:00] VITALS: RESP 16; TEMP 99.2
[2018-09-30 09:14] LABS: Basophils % (A) 1 %; Eosinophils # (A) 0.2 k/uL (0-0.7); Eosinophils % (A) 3 %; HCT 38.6 % (34.0-46.0); Lymphocytes # (A) 0.6 k/uL (1.0-4.8); Lymphocytes % (A) 11 %; MCH 28.7 pg (25.0-35.0); MCHC 33.8 g/dL (31.0-37.0); MCV 84.9 fL (80.0-100.0); Mean Platelet Volume 7.2; Monocytes # (A) 0.4 k/uL (0-1.0); Monocytes % (A) 7 %; Neutrophils # (A) 4.2 k/uL (1.3-7.7); Neutrophils % (A) 75 %; Platelet Count 273 k/uL (150-450); RBC 4.54 m/uL (3.80-5.40); RDW 14.9 % (11.5-15.5); WBC 5.6 k/uL (3.8-10.6)
[2018-09-30 11:48] VITALS: BP 127/78; PULSE 71
== END | disposition home or self-care (01) ==
LOC: PROCWHC3 08:51 → EEVIPCON 08:51
PROVIDERS: ATTEND Internal Medicine Hematology & Oncology
DX: Z51.12 Encounter for antineoplastic immunotherapy (principal); C82.08 Follicular lymphoma grade I, lymph nodes of multiple sites
CPT/HCPCS: 85025; 96375; 96413; 96415; 36415; J1200; J2930; J9312

== ENCOUNTER → 2018-11-25 | Outpatient (CLI) | payer BC ==
[~2018-11-25] MED LIST changes: +FAMOTIDINE 20 MG/2 ML VIAL IV NR; -FAMOTIDINE 20 MG/2 ML VIAL IVP NR; +methylPREDNISolone SOD SUCCI 125 MG/2 ML VIAL IV NR; -methylPREDNISolone SOD SUCCI 125 MG/2 ML VIAL IVP NR
[2018-11-25 08:47] VITALS: RESP 16; TEMP 98
[2018-11-25 08:59] LABS: Basophils # (A) 0.1 k/uL (0-0.2); Basophils % (A) 1 %; Eosinophils # (A) 0.1 k/uL (0-0.7); Eosinophils % (A) 3 %; HCT 37.3 % (34.0-46.0); HGB 12.8 gm/dL (11.4-16.0); Lymphocytes # (A) 0.5 k/uL (1.0-4.8); Lymphocytes % (A) 12 %; MCH 29.8 pg (25.0-35.0); MCHC 34.3 g/dL (31.0-37.0); MCV 87.1 fL (80.0-100.0); Monocytes # (A) 0.3 k/uL (0-1.0); Monocytes % (A) 7 %; Neutrophils # (A) 2.9 k/uL (1.3-7.7); Neutrophils % (A) 73 %; Platelet Count 247 k/uL (150-450); RBC 4.28 m/uL (3.80-5.40)
[2018-11-25 11:26] VITALS: BP 128/78; PULSE 71
== END ==
LOC: PROCWHC3 08:30
PROVIDERS: ATTEND Internal Medicine Hematology & Oncology
DX: Z51.11 Encounter for antineoplastic chemotherapy (principal); C82.08 Follicular lymphoma grade I, lymph nodes of multiple sites
CPT/HCPCS: 85025; 96375; 96413; 96415; 36415; J1200; J2930; J9312

== ENCOUNTER → 2019-01-27 | Outpatient (CLI) | payer BC ==
[~2019-01-27] MED LIST changes: -ACETAMINOPHEN TAB 325 MG TAB PO NR; +ACETAMINOPHEN TAB 500 MG TAB PO NR
[2019-01-27 09:08] VITALS: RESP 16; TEMP 97.9
[2019-01-27 09:23] LABS: Basophils # (A) 0.1 k/uL (0-0.2); Basophils % (A) 2 %; Eosinophils % (A) 1 %; HCT 38.2 % (34.0-46.0); HGB 12.8 gm/dL (11.4-16.0); Lymphocytes # (A) 0.5 k/uL (1.0-4.8); Lymphocytes % (A) 13 %; MCH 29.6 pg (25.0-35.0); MCHC 33.6 g/dL (31.0-37.0); Mean Platelet Volume 6.6; Monocytes # (A) 0.3 k/uL (0-1.0); Monocytes % (A) 8 %; Neutrophils # (A) 2.8 k/uL (1.3-7.7); Neutrophils % (A) 73 %; Platelet Count 266 k/uL (150-450); RBC 4.34 m/uL (3.80-5.40); RDW 13.8 % (11.5-15.5); WBC 3.8 k/uL (3.8-10.6)
[2019-01-27 11:39] VITALS: BP 122/74; PULSE 73
== END | disposition home or self-care (01) ==
LOC: PROCWHC3 08:47
PROVIDERS: ATTEND Internal Medicine Hematology & Oncology
DX: Z51.11 Encounter for antineoplastic chemotherapy (principal); C82.08 Follicular lymphoma grade I, lymph nodes of multiple sites
CPT/HCPCS: 85025; 96375; 96413; 96415; J1200; J2930; J9312

== ENCOUNTER → 2019-03-24 | Outpatient (CLI) | payer BC ==
[~2019-03-24] MED LIST changes: -FAMOTIDINE 20 MG/2 ML VIAL IV NR; +FAMOTIDINE 20 MG/2 ML VIAL IVP NR; -SODIUM CHLORIDE 0.9% 500 ML 500 ML in EMPTY BAG 1 BAG IV PRN; -methylPREDNISolone SOD SUCCI 125 MG/2 ML VIAL IV NR; +methylPREDNISolone SOD SUCCI 125 MG/2 ML VIAL IVP NR
[2019-03-24 09:41] VITALS: RESP 16; TEMP 97.7
[2019-03-24] MEDS: SODIUM CHLORIDE 0.9% 500 ML 500 ML in EMPTY BAG 1 BAG IV PRN ×2 (09:43→09:53)
[2019-03-24 10:13] LABS: Basophils # (A) 0.1 k/uL (0-0.2); Basophils % (A) 1 %; Eosinophils # (A) 0.1 k/uL (0-0.7); Eosinophils % (A) 2 %; HGB 13.8 gm/dL (11.4-16.0); Lymphocytes # (A) 0.7 k/uL (1.0-4.8); Lymphocytes % (A) 13 %; MCH 29.2 pg (25.0-35.0); MCHC 32.8 g/dL (31.0-37.0); Mean Platelet Volume 7.7; Monocytes # (A) 0.5 k/uL (0-1.0); Monocytes % (A) 9 %; Neutrophils # (A) 3.5 k/uL (1.3-7.7); Neutrophils % (A) 70 %; Platelet Count 268 k/uL (150-450); RBC 4.72 m/uL (3.80-5.40); RDW 14.4 % (11.5-15.5)
[2019-03-24 11:59] VITALS: BP 130/83; PULSE 76
== END | disposition home or self-care (01) ==
LOC: PROCWHC3 09:33
PROVIDERS: ATTEND Internal Medicine Hematology & Oncology
DX: Z51.11 Encounter for antineoplastic chemotherapy (principal); C82.08 Follicular lymphoma grade I, lymph nodes of multiple sites
CPT/HCPCS: 85025; 96375; 96413; 96415; 36415; J1200; J2930; J9312

== ENCOUNTER → 2019-05-25 | Outpatient (CLI) | payer BC ==
[~2019-05-25] MED LIST changes: +FAMOTIDINE 20 MG/2 ML VIAL IV NR; -FAMOTIDINE 20 MG/2 ML VIAL IVP NR; +SODIUM CHLORIDE 0.9% 500 ML 500 ML in EMPTY BAG 1 BAG IV PRN; +methylPREDNISolone SOD SUCCI 125 MG/2 ML VIAL IV NR; -methylPREDNISolone SOD SUCCI 125 MG/2 ML VIAL IVP NR
[2019-05-25 09:24] VITALS: RESP 16; TEMP 97.8
[2019-05-25 09:39] LABS: Basophils % (A) 0 %; Eosinophils # (A) 0.1 k/uL (0-0.7); Eosinophils % (A) 2 %; HCT 38.9 % (34.0-46.0); Lymphocytes # (A) 0.7 k/uL (1.0-4.8); Lymphocytes % (A) 12 %; MCH 29.2 pg (25.0-35.0); MCHC 33.4 g/dL (31.0-37.0); MCV 87.4 fL (80.0-100.0); Monocytes # (A) 0.4 k/uL (0-1.0); Monocytes % (A) 7 %; Neutrophils # (A) 4.1 k/uL (1.3-7.7); Neutrophils % (A) 75 %; Platelet Count 239 k/uL (150-450); RBC 4.45 m/uL (3.80-5.40); RDW 13.5 % (11.5-15.5); WBC 5.4 k/uL (3.8-10.6)
[2019-05-25 12:02] VITALS: BP 143/85; PULSE 81
== END | disposition home or self-care (01) ==
LOC: PROCWHC3 08:29
PROVIDERS: ATTEND Internal Medicine Hematology & Oncology
DX: Z51.11 Encounter for antineoplastic chemotherapy (principal); C82.08 Follicular lymphoma grade I, lymph nodes of multiple sites
CPT/HCPCS: 85025; 96413; 96415; 36415; J1200; J2930; J9312

== ENCOUNTER → 2019-07-20 | Outpatient (CLI) | payer BC ==
[2019-07-20 09:22] VITALS: RESP 16; TEMP 97.6
[2019-07-20 09:46] LABS: HCT 42.3 % (34.0-46.0); HGB 13.8 gm/dL (11.4-16.0); MCH 28.9 pg (25.0-35.0); MCHC 32.6 g/dL (31.0-37.0); MCV 88.7 fL (80.0-100.0); Mean Platelet Volume 7.2; Platelet Count 280 k/uL (150-450); RBC 4.77 m/uL (3.80-5.40); RDW 13.8 % (11.5-15.5); WBC 4.7 k/uL (3.8-10.6)
[2019-07-20 10:04] LABS: Eosinophils # (M) 0.05 k/uL (0-0.7); Lymphocytes # (M) 0.94 k/uL (1.0-4.8); Monocytes # (M) 0.52 k/uL (0-1.0); Neutrophils % (M) 68 %; Nucleated Red Blood Cells 0 /100 WBC (0-0); Total Cells Counted 100
[2019-07-20 10:05] LABS: Anisocytosis (M) Present
[2019-07-20 11:39] VITALS: BP 114/70; PULSE 68
== END | disposition home or self-care (01) ==
LOC: PROCWHC3 08:58
PROVIDERS: ATTEND Internal Medicine Hematology & Oncology
DX: Z51.11 Encounter for antineoplastic chemotherapy (principal); C82.08 Follicular lymphoma grade I, lymph nodes of multiple sites
CPT/HCPCS: 85025; 96375; 96413; 96415; 36415; J1200; J2930; J9312

== ENCOUNTER → 2019-09-14 | Outpatient (CLI) | payer BC ==
[2019-09-14 08:15] VITALS: RESP 16; TEMP 98.4
[2019-09-14 08:53] LABS: Basophils % (A) 1 %; Eosinophils # (A) 0.1 k/uL (0-0.7); Eosinophils % (A) 4 %; HCT 37.4 % (34.0-46.0); HGB 12.3 gm/dL (11.4-16.0); Lymphocytes # (A) 0.5 k/uL (1.0-4.8); Lymphocytes % (A) 11 %; MCH 28.8 pg (25.0-35.0); MCV 87.2 fL (80.0-100.0); Mean Platelet Volume 7.7; Monocytes # (A) 0.3 k/uL (0-1.0); Monocytes % (A) 7 %; Neutrophils # (A) 2.9 k/uL (1.3-7.7); Neutrophils % (A) 74 %; Platelet Count 259 k/uL (150-450); RBC 4.28 m/uL (3.80-5.40); RDW 14.2 % (11.5-15.5)
[2019-09-14 11:27] VITALS: BP 122/72; PULSE 70
== END | disposition home or self-care (01) ==
LOC: PROCWHC3 08:01
PROVIDERS: ATTEND Internal Medicine Hematology & Oncology
DX: Z51.11 Encounter for antineoplastic chemotherapy (principal); C82.08 Follicular lymphoma grade I, lymph nodes of multiple sites
CPT/HCPCS: 85025; 96375; 96413; 96415; 36415; J1200; J2930; J9312

== ENCOUNTER → 2019-11-09 | Outpatient (CLI) | payer BC ==
[~2019-11-09] MED LIST changes: -RITUXIMAB IV NR; +RITUXIMAB PVVR IV NR; +diphenhydrAMINE 50 MG/ML 1 ML VIAL IVP ONE
[2019-11-09 08:11] VITALS: RESP 16; TEMP 97.7
[2019-11-09 08:25] LABS: Basophils % (A) 1 %; Eosinophils # (A) 0.1 k/uL (0-0.7); Eosinophils % (A) 2 %; HCT 39.5 % (34.0-46.0); Lymphocytes # (A) 0.6 k/uL (1.0-4.8); Lymphocytes % (A) 12 %; MCH 28.4 pg (25.0-35.0); MCHC 32.9 g/dL (31.0-37.0); MCV 86.4 fL (80.0-100.0); Mean Platelet Volume 7.9; Monocytes # (A) 0.4 k/uL (0-1.0); Monocytes % (A) 8 %; Neutrophils # (A) 3.8 k/uL (1.3-7.7); Neutrophils % (A) 74 %; Platelet Count 270 k/uL (150-450); RBC 4.57 m/uL (3.80-5.40); RDW 13.8 % (11.5-15.5); WBC 5.1 k/uL (3.8-10.6)
[2019-11-09 10:48] VITALS: BP 155/81; PULSE 67
== END | disposition home or self-care (01) ==
LOC: PROCWHC3 08:01
PROVIDERS: ATTEND Internal Medicine Hematology & Oncology
DX: Z51.11 Encounter for antineoplastic chemotherapy (principal); C82.08 Follicular lymphoma grade I, lymph nodes of multiple sites
CPT/HCPCS: 85025; 96374; 96413; 96415; J2930; Q5119

== ENCOUNTER 2020-07-09 13:01 | Inpatient (IN) | payer BC ==
[2020-07-09] MEDS ORDERED: SODIUM CHLORIDE 0.9% 1,000 ML IV STA (13:15)
--- NOTE | 2020-07-09 13:29 | ED ---
Fever HPI - General Chief Complaint: Fever Stated Complaint: Fever,NVD Time Seen by Provider: 07/09/20 13:09 Source: patient Mode of arrival: ambulatory Limitations: no limitations - History of Present Illness Initial Comments: Sherri is a pleasant 59-year-old female with past medical history of IgA and IgG deficiencies. Patient was diagnosed with COVID-19 early this month. She reports she began feeling better for a short period of time and return to work. However she reports that over the past week or shortness of breath and fatigue has progressively worsened. Today she was feeling more short of breath and she had throughout her entire course which prompted her to come to the ER for further evaluation. MD Complaint: fever - Related Data Home Medications Medication Instructions Recorded Confirmed Multivitamins, Thera [Multivitamin 1 tab PO DAILY 02/14/17 07/09/20 (formulary)] cloNIDine HCL [Catapres] 0.1 mg PO HS 02/14/17 07/09/20 ALPRAZolam [Xanax] 0.5 mg PO BID PRN 05/09/17 07/09/20 Allergies Allergy/AdvReac Type Severity Reaction Status Date / Time glucose [From Gammagard S/D] AdvReac Intermediate Unknown Verified 07/09/20 13:47 glycine [From Gammagard S/D] AdvReac Intermediate Unknown Verified 07/09/20 13:47 IgA less than or equal to 50 AdvReac Intermediate Unknown Verified 07/09/20 13:47 mcg/mL [From Gammagard S/D] immune globulin,gamma (IgG) AdvReac Intermediate Unknown Verified 07/09/20 13:47 human [From Gammagard S/D] Review of Systems ROS Statement: Those systems with pertinent positive or pertinent negative responses have been documented in the HPI. ROS Other: All systems not noted in ROS Statement are negative. Past Medical History Past Medical History: Cancer, Hypertension Additional Past Medical History / Comment(s): Nonhodgkins lymphoma stage III diagnosed February,, R side pleural effusions/thoracentesis twice, pt had first chemo and immunotherapy 07/14/17, anemia, diverticulitis, L eye blind since infant, bronchitis when young. History of Any Multi-Drug Resistant Organisms: None Reported Past Surgical History: Cholecystectomy, Uterine Ablation Additional Past Surgical History / Comment(s): R sided thoracentesis twice with last time done on 07/03/17, R eye surgery when 6 yrs old-had tumor behind eye and detached retina. Past Anesthesia/Blood Transfusion Reactions: No Reported Reaction Additional Past Anesthesia/Blood Transfusion Reaction / Comment(s): Pt recently received blood without reaction. Past Psychological History: No Psychological Hx Reported Smoking Status: Former smoker Past Alcohol Use History: None Reported Past Drug Use History: None Reported - Past Family History Mother History Unknown: Yes Additional Family Medical History / Comment(s): adopted General Exam - General Exam Comments Initial Comments: Physical Exam GENERAL: Chronically ill-appearing, appears older than stated age HENT: Normocephalic, Atraumatic. EYES: Blind in left eye PULMONARY: Tachypnea CARDIOVASCULAR: RRR Warm and well perfused extremities ABDOMEN: Non-distended SKIN: No rashes or bruising : Deferred NEUROLOGIC: Alert and oriented Normal speech Normal gait MUSCULOSKELETAL: Moving all extremities with no apparent injury PSYCHIATRIC: No SI/HI Limitations: no limitations Course Vital Signs 07/09/20 07/09/20 07/09/20 13:03 15:37 18:15 Temperature 99.0 F 102.9 F H 101.3 F H Pulse Rate 113 H 111 H 104 H Respiratory 22 20 18 Rate Blood Pressure 165/85 134/64 168/92 O2 Sat by Pulse 88 L 92 L 94 L Oximetry Medical Decision Making - Medical Decision Making Patient was seen and evaluated history was obtained from patient Chest x-ray shows interstitial edema versus pneumonia Patient with oxygen saturation 86% while at rest, patient require supplemental oxygenation therefore requires hospitalization Patient agreeable to plan for hospitalization for oxygen there. Patient care was discussed with Dr. Szymanski of the [facility] hospitalist group who accepts admission - Lab Data Result diagrams: 07/09/20 13:28 07/09/20 13:28 Lab Results 07/09/20 07/09/20 07/09/20 Range/Units 13:28 13:28 13:28 WBC 3.8 (3.8-10.6) k/uL RBC 4.35 (3.80-5.40) m/uL Hgb 13.6 (11.4-16.0) gm/dL Hct 37.8 (34.0-46.0) % MCV 86.9 (80.0-100.0) fL MCH 31.3 (25.0-35.0) pg MCHC 36.0 (31.0-37.0) g/dL RDW 12.8 (11.5-15.5) % Plt Count 251 (150-450) k/uL MPV 7.4 Neutrophils % 85 % Lymphocytes % 10 % Monocytes % 3 % Eosinophils % 1 % Basophils % 0 % Neutrophils # 3.2 (1.3-7.7) k/uL Lymphocytes # 0.4 L (1.0-4.8) k/uL Monocytes # 0.1 (0-1.0) k/uL Eosinophils # 0.0 (0-0.7) k/uL Basophils # 0.0 (0-0.2) k/uL Sodium 132 L (137-145) mmol/L Potassium 3.1 L (3.5-5.1) mmol/L Chloride 98 (98-107) mmol/L Carbon Dioxide 27 (22-30) mmol/L Anion Gap 7 mmol/L BUN 7 (7-17) mg/dL Creatinine 0.57 (0.52-1.04) mg/dL Est GFR (CKD-EPI)AfAm >90 (>60 ml/min/1.73 sqM) Est GFR (CKD-EPI)NonAf >90 (>60 ml/min/1.73 sqM) Glucose 117 H (74-99) mg/dL Plasma Lactic Acid Marc 0.9 (0.7-2.0) mmol/L Calcium 8.3 L (8.4-10.2) mg/dL Magnesium 1.8 (1.6-2.3) mg/dL Total Bilirubin 0.5 (0.2-1.3) mg/dL AST 104 H (14-36) U/L ALT 79 H (4-34) U/L Alkaline Phosphatase 126 (38-126) U/L Total Protein 6.1 L (6.3-8.2) g/dL Albumin 3.5 (3.5-5.0) g/dL Lipase 46 (23-300) U/L Urine Color Urine Appearance (Clear) Urine pH (5.0-8.0) Ur Specific [place] (1.001-1.035) Urine Protein (Negative) Urine Glucose (UA) (Negative) Urine Ketones (Negative) Urine Blood (Negative) Urine Nitrite (Negative) Urine Bilirubin (Negative) Urine Urobilinogen (<2.0) mg/dL Ur Leukocyte Esterase (Negative) Urine RBC (0-5) /hpf Urine WBC (0-5) /hpf Ur Squamous Epith Cells (0-4) /hpf 07/09/20 Range/Units 13:28 WBC (3.8-10.6) k/uL RBC (3.80-5.40) m/uL Hgb (11.4-16.0) gm/dL Hct (34.0-46.0) % MCV (80.0-100.0) fL MCH (25.0-35.0) pg MCHC (31.0-37.0) g/dL RDW (11.5-15.5) % Plt Count (150-450) k/uL MPV Neutrophils % % Lymphocytes % % Monocytes % % Eosinophils % % Basophils % % Neutrophils # (1.3-7.7) k/uL Lymphocytes # (1.0-4.8) k/uL Monocytes # (0-1.0) k/uL Eosinophils # (0-0.7) k/uL Basophils # (0-0.2) k/uL Sodium (137-145) mmol/L Potassium (3.5-5.1) mmol/L Chloride (98-107) mmol/L Carbon Dioxide (22-30) mmol/L Anion Gap mmol/L BUN (7-17) mg/dL Creatinine (0.52-1.04) mg/dL Est GFR (CKD-EPI)AfAm (>60 ml/min/1.73 sqM) Est GFR (CKD-EPI)NonAf (>60 ml/min/1.73 sqM) Glucose (74-99) mg/dL Plasma Lactic Acid Marc (0.7-2.0) mmol/L Calcium (8.4-10.2) mg/dL Magnesium (1.6-2.3) mg/dL Total Bilirubin (0.2-1.3) mg/dL AST (14-36) U/L ALT (4-34) U/L Alkaline Phosphatase (38-126) U/L Total Protein (6.3-8.2) g/dL Albumin (3.5-5.0) g/dL Lipase (23-300) U/L Urine Color Colorless Urine Appearance Clear (Clear) Urine pH 6.5 (5.0-8.0) Ur Specific [place] 1.002 (1.001-1.035) Urine Protein Negative (Negative) Urine Glucose (UA) Negative (Negative) Urine Ketones Negative (Negative) Urine Blood Negative (Negative) Urine Nitrite Negative (Negative) Urine Bilirubin Negative (Negative) Urine Urobilinogen <2.0 (<2.0) mg/dL Ur Leukocyte Esterase Moderate H (Negative) Urine RBC 2 (0-5) /hpf Urine WBC 8 H (0-5) /hpf Ur Squamous Epith Cells <1 (0-4) /hpf Disposition Clinical Impression: COVID-19, Hypoxia Disposition: ADMITTED IP TO THIS HOSP Condition: Serious
[2020-07-09 13:39] LABS: Basophils % (A) 0 %; Eosinophils % (A) 1 %; HCT 37.8 % (34.0-46.0); HGB 13.6 gm/dL (11.4-16.0); Lymphocytes # (A) 0.4 k/uL (1.0-4.8); Lymphocytes % (A) 10 %; MCH 31.3 pg (25.0-35.0); MCV 86.9 fL (80.0-100.0); Mean Platelet Volume 7.4; Monocytes # (A) 0.1 k/uL (0-1.0); Monocytes % (A) 3 %; Neutrophils # (A) 3.2 k/uL (1.3-7.7); Neutrophils % (A) 85 %; Platelet Count 251 k/uL (150-450); RBC 4.35 m/uL (3.80-5.40); RDW 12.8 % (11.5-15.5); WBC 3.8 k/uL (3.8-10.6)
[2020-07-09 13:53] LABS: ALT 79 U/L (4-34); AST 104 U/L (14-36); African American GFR (CKD) >90 (>60 ml/min/1.73 sqM); Albumin 3.5 g/dL (3.5-5.0); Alkaline Phosphatase 126 U/L (38-126); Anion Gap 7 mmol/L; Blood Urea Nitrogen 7 mg/dL (7-17); Calcium 8.3 mg/dL (8.4-10.2); Carbon Dioxide 27 mmol/L (22-30); Chloride 98 mmol/L (98-107); Glucose 117 mg/dL (74-99); Lipase 46 U/L (23-300); Magnesium 1.8 mg/dL (1.6-2.3); Non-African American GFR(CKD) >90 (>60 ml/min/1.73 sqM); Potassium 3.1 mmol/L (3.5-5.1); Sodium 132 mmol/L (137-145); Total Bilirubin 0.5 mg/dL (0.2-1.3); Total Protein 6.1 g/dL (6.3-8.2)
--- NOTE | 2020-07-09 14:47 | XR ---
EXAMINATION TYPE: XR chest 1V portable DATE OF EXAM: 07/09/2020 COMPARISON: 08/07/2017 HISTORY: Fever and nausea TECHNIQUE: Single view FINDINGS: There is diffuse pulmonary interstitial infiltrate. Heart size is normal. There are no gustavo r masses. Bony thorax is intact IMPRESSION: There is interstitial pneumonia which is new compared to old exam. There is clearing of t he atelectasis at the right lung base compared to old exam.
[2020-07-09 15:05] LABS: Appearance,Urine Clear (Clear); Bilirubin,Urine Negative (Negative); Blood,Urine Negative (Negative); Color,Urine Colorless; Glucose,Urine (UA) Negative (Negative); Ketones,Urine Negative (Negative); Leukocyte Esterase,Urine Moderate (Negative); Nitrite,Urine Negative (Negative); PH, Urine 6.5 (5.0-8.0); Protein,Urine Negative (Negative); RBC,Urine 2 /hpf (0-5); Specific Gravity,Urine 1.002 (1.001-1.035); Squamous Epithelial Cell,Urine <1 /hpf (0-4); Urobilinogen,Urine <2.0 mg/dL (<2.0); WBC,Urine 8 /hpf (0-5)
[2020-07-09] MEDS ORDERED: ONDANSETRON 4 MG/2 ML VIAL IVP STA (15:28)
[2020-07-09] MEDS ORDERED: ONDANSETRON 4 MG/2 ML VIAL IVP PRN (15:59)
[2020-07-09] MEDS ORDERED: NALOXONE 0.4 MG/ML 1 ML VIAL IV PRN (15:59)
[2020-07-09] MEDS: IBUPROFEN 400 MG TAB PO PRN (16:25)
[2020-07-09] MEDS: ACETAMINOPHEN TAB 325 MG TAB PO PRN (16:25)
[2020-07-09] MEDS ORDERED: ALPRAZolam 0.5 MG TAB PO PRN (18:32)
[2020-07-09] MEDS ORDERED: HYDROcodone/APAP 5-325MG 1 EACH TAB PO PRN (18:33)
[2020-07-09] MEDS ORDERED: TEMAZEPAM 15 MG CAP PO PRN (18:33)
--- NOTE | 2020-07-09 19:52 | HP ---
HISTORY AND PHYSICAL CHIEF COMPLAINT: Cough, shortness of breath and not feeling well. HISTORY OF PRESENT ILLNESS: This 59-year-old with a past history of non-Hodgkin lymphoma, stage III diagnosed February 2017 with right-sided pleural effusion, twice being followed by Dr. Muñoz and Dr. Partida in the outpatient setting apparently went back to work and the patient is not feeling well. Patient recently diagnosed with Covid 19 and the patient came to [facility] and was found to have multiple abnormal labs and the patient also hypoxic at 88% on room air. The patient admitted for evaluation with bilateral COVID-19 pneumonia. There is no history of any rigors, chills, no history of headache, loss conscious or seizures. Patient was found to have a fever, febrile up to 102.9. PAST MEDICAL HISTORY: History of hypertension, history of non-Hodgkin's, cholecystectomy, history of uterine ablation. MEDICATIONS: Catapres 0.1 q.h.s., multivitamins 1 daily. Xanax 0.5 b.i.d. p.r.n. ALLERGIES: GLUCOSE, GLYCINE, IgA. FAMILY HISTORY: The patient is adopted. SOCIAL HISTORY: Previous history of smoking. No history of current smoking or alcohol intake. REVIEW OF SYSTEMS: ENT: No diminished vision. No diminished hearing. CARDIOVASCULAR: No angina or palpitations. RESPIRATORY: As mentioned earlier. GI: As mentioned earlier. : No dysuria. NERVOUS SYSTEM: No numbness, no weakness. ALLERGY/IMMUNOLOGY: No asthma or hayfever. MUSCULOSKELETAL: As mentioned earlier. HEMATOLOGY/ONCOLOGY: No history of anemia. ENDOCRINE: No history of diabetes or hypothyroidism. CONSTITUTIONAL: As mentioned earlier. DERMATOLOGY: Negative. RHEUMATOLOGY negative. PSYCHIATRY as mentioned earlier. PHYSICAL EXAMINATION: Alert and oriented x3. The pulse is 111. Blood pressure 134/64, respiration 20, temperature 102.9, pulse ox 92% on 2 L. HEENT: Conjunctivae normal. Oral mucosa moist. NECK is no jugular venous distention. No carotid bruit. No lymph node enlargement. CARDIOVASCULAR system: S1, S2 muffled. RESPIRATION: Breath sounds diminished in the bases. A few scattered rhonchi and crackles. ABDOMEN: Soft, nontender. No mass palpable. LEGS: No edema. No swelling. NERVOUS SYSTEM: Higher functions as mentioned. Moves all four limbs. No focal deficits. LYMPHATICS: No lymph nodes palpable in the neck, axillae or groin. SKIN: No ulcer, rash or bleeding. JOINTS: No active deforming arthropathy. LABS: CBC lymphocytes 0.4, sodium 138, potassium 3.8. Other labs are noted. ASSESSMENT: 1. Acute COVID-19 pneumonia with acute bilateral interstitial pneumonia with acute hypoxic respiratory failure. 2. Hyponatremia. 3. Hypokalemia. 4. Lymphopenia. 5. Elevated AST/ALT, possibly secondary to COVID-19. 6. Non-Hodgkin lymphoma. 7. Possible urinary tract infection. 8. History of right pleural effusion. 9. Thoracocentesis. 10.History of diverticulitis. 11.History of cholecystectomy. 12.History uterine ablation. RECOMMENDATIONS AND DISCUSSION: This 59-year-old woman who presented with multiple complex medical issues, at this time, I recommend continue the current management, continue symptomatic treatment. Otherwise, I would also recommend empiric antibiotics. Pulmonary consultation. Consult Dr. Partida also because of history of non-Hodgkin lymphoma. Home medications will be continued and Dr. Muñoz will follow the patient tomorrow. Further recommendations to follow. Discussed with the patient. See orders for details. MMODL / IJN: [id number] / MTDD
[2020-07-09] MEDS: SODIUM CHLORIDE 0.9% 1,000 ML IV SCH (20:30)
[2020-07-09] MEDS: PANTOPRAZOLE 40 MG TABLET PO SCH (20:54)
[2020-07-09] MEDS: cloNIDine HCL 0.1 MG TAB PO SCH (20:54)
[2020-07-09] MEDS: CHOLECALCIFEROL 25 MCG (1000 IU) TABLET PO SCH (20:54)
[2020-07-09] MEDS: ZINC SULFATE 220 MG CAP PO SCH (20:55)
[2020-07-09] MEDS: ASCORBIC ACID 500 MG TAB PO SCH (20:55)
[2020-07-09] MEDS: ENOXAPARIN 40 MG/0.4 ML SYRINGE SQ SCH (20:56)
[2020-07-10] MEDS: ACETAMINOPHEN TAB 325 MG TAB PO PRN ×2 (01:27→18:56)
[2020-07-10] MEDS: IBUPROFEN 400 MG TAB PO PRN (03:14)
[2020-07-10] MEDS: SODIUM CHLORIDE 0.9% 1,000 ML IV SCH (07:31)
[2020-07-10 09:07] LABS: Basophils # (A) 0.01 X 10*3/uL (0.00-0.10); Basophils % (A) 0.4 %; Eosinophils # (A) 0.01 X 10*3/uL (0.04-0.35); Eosinophils % (A) 0.4 %; HCT 33.7 % (37.2-46.3); HGB 11.4 g/dL (12.0-15.0); Lymphocytes # (A) 0.29 X 10*3/uL (0.90-5.00); Lymphocytes % (A) 12.7 %; MCH 29.7 pg (27.0-32.0); MCHC 33.8 g/dL (32.0-37.0); MCV 87.8 fL (80.0-97.0); Mean Platelet Volume 9.8 fL (9.5-12.2); Monocytes # (A) 0.09 X 10*3/uL (0.20-1.00); Monocytes % (A) 3.9 %; Neutrophils # (A) 1.88 X 10*3/uL (1.80-7.70); Neutrophils % (A) 82.2 %; Platelet Count 238 X 10*3/uL (140-440); RBC 3.84 X 10*6/uL (4.10-5.20); RDW 12.5 % (11.5-14.5); WBC 2.29 X 10*3/uL (4.50-10.00)
[2020-07-10 09:19] LABS: African American GFR (CKD) 123.6 (60.0-200.0); Albumin 3.5 g/dL (3.80-4.90); Albumin/Globulin Ratio 2.33 (1.60-3.17); Anion Gap 6.8 mmol/L (4.00-12.00); Carbon Dioxide 26.2 mmol/L (21.6-31.8); Globulin 1.5 g/dL (1.6-3.3); Non-African American GFR(CKD) 106.7 (60.0-200.0); Total Bilirubin 0.2 mg/dL (0.2-1.2)
[2020-07-10] MEDS: MULTIVITAMINS, THERA 1 EACH TAB PO SCH (09:54)
[2020-07-10] MEDS: ZINC SULFATE 220 MG CAP PO SCH (09:54)
[2020-07-10] MEDS: PANTOPRAZOLE 40 MG TABLET PO SCH (09:54)
[2020-07-10] MEDS: CHOLECALCIFEROL 25 MCG (1000 IU) TABLET PO SCH (09:54)
[2020-07-10] MEDS: ASCORBIC ACID 500 MG TAB PO SCH (09:54)
[2020-07-10] MEDS: ENOXAPARIN 40 MG/0.4 ML SYRINGE SQ SCH (09:54)
--- NOTE | 2020-07-10 10:51 | P.CNPUL ---
History of Present Illness Consult date: 07/10/20 Reason for consult: dyspnea, cough, hypoxemia, pneumonia Chief complaint: Progressive shortness of breath and hypoxia 3-4 day duration History of present illness: Patient is a 59-year-old female with the history of IgA and IgG deficiency, patient was diagnosed with COVID-19 pneumonia earlier but has been doing well until about 4 days ago started having shortness of breath cough and intermittent fever came into the hospital for further evaluation, past medical history is significant for above as well as hypertension and generalized anxiety disorder, she was diagnosis non-Hodgkin's lymphoma stage III in February 2017, status post chemotherapy with resolution of recurrent pleural effusion, status post a right-sided thoracentesis multiple times, chest x-ray significant for interstitial infiltrate oxygen saturation was 86%, other significant labs includes hypokalemia with the potassium was 3.1, mildly elevated liver enzymes with AST and ALT of 72 and 76, renal functions within normal limit, total bilirubin is 0.2, patient is being treated with IV Rocephin 1 g daily, Lovenox, Review of Systems All systems: negative Past Medical History Past Medical History: Cancer, Hypertension Additional Past Medical History / Comment(s): Nonhodgkins lymphoma stage III diagnosed February,, R side pleural effusions/thoracentesis twice, pt had first chemo and immunotherapy 07/14/17, anemia, diverticulitis, L eye blind since infant, bronchitis when young. History of Any Multi-Drug Resistant Organisms: None Reported Past Surgical History: Cholecystectomy, Uterine Ablation Additional Past Surgical History / Comment(s): R sided thoracentesis twice with last time done on 07/03/17, R eye surgery when 6 yrs old-had tumor behind eye and detached retina. Past Anesthesia/Blood Transfusion Reactions: No Reported Reaction Additional Past Anesthesia/Blood Transfusion Reaction / Comment(s): Pt recently received blood without reaction. Past Psychological History: No Psychological Hx Reported Smoking Status: Former smoker Past Alcohol Use History: None Reported Past Drug Use History: None Reported - Past Family History Mother History Unknown: Yes Additional Family Medical History / Comment(s): adopted Medications and Allergies Home Medications Medication Instructions Recorded Confirmed Type Multivitamins, Thera [Multivitamin 1 tab PO DAILY 02/14/17 07/09/20 History (formulary)] cloNIDine HCL [Catapres] 0.1 mg PO HS 02/14/17 07/09/20 History ALPRAZolam [Xanax] 0.5 mg PO BID PRN 05/09/17 07/09/20 History Allergies Allergy/AdvReac Type Severity Reaction Status Date / Time glucose [From Gammagard S/D] AdvReac Intermediate Unknown Verified 07/09/20 13:47 glycine [From Gammagard S/D] AdvReac Intermediate Unknown Verified 07/09/20 13:47 IgA less than or equal to 50 AdvReac Intermediate Unknown Verified 07/09/20 13:47 mcg/mL [From Gammagard S/D] immune globulin,gamma (IgG) AdvReac Intermediate Unknown Verified 07/09/20 13:47 human [From Gammagard S/D] Physical Exam Vitals: Vital Signs Temp Pulse Resp BP Pulse Ox 07/10/20 06:00 98.8 F 96 20 122/66 94 L 07/10/20 03:00 101.4 F H 108 H 20 142/79 95 07/10/20 01:20 102.1 F H 103 H 20 158/84 96 07/09/20 21:00 99.0 F 96 18 149/107 96 07/09/20 18:15 101.3 F H 104 H 18 168/92 94 L 07/09/20 15:37 102.9 F H 111 H 20 134/64 92 L 07/09/20 13:03 99.0 F 113 H 22 165/85 88 L - Constitutional General appearance: average body habitus, cooperative, disheveled - EENT Eyes: PERRLA Ears: bilateral: normal - Neck Carotids: bilateral: upstroke normal - Respiratory Respiratory: bilateral: CTA - Cardiovascular Rhythm: regular Heart sounds: normal: S1, S2 - Gastrointestinal General gastrointestinal: decreased bowel sounds, distended, soft - Integumentary Integumentary: normal turgor - Neurologic Neurologic: CNII-XII intact - Musculoskeletal Musculoskeletal: gait normal, generalized weakness, strength equal bilaterally - Psychiatric Psychiatric: A&O x's 3, appropriate affect, intact judgment & insight Results - Laboratory Findings CBC and BMP: 07/10/20 04:37 07/10/20 04:37 Abnormal lab findings: Abnormal Labs 07/09/20 07/09/20 07/09/20 13:28 13:28 13:28 WBC RBC Hgb Hct Lymphocytes # 0.4 L Monocytes # Eosinophils # Sodium 132 L Potassium 3.1 L BUN Creatinine Glucose 117 H Calcium 8.3 L AST 104 H ALT 79 H Total Protein 6.1 L Albumin Globulin Ur Leukocyte Esterase Moderate H Urine WBC 8 H 07/10/20 07/10/20 04:37 04:37 WBC 2.29 L RBC 3.84 L Hgb 11.4 L Hct 33.7 L Lymphocytes # 0.29 L Monocytes # 0.09 L Eosinophils # 0.01 L Sodium Potassium 3.0 L BUN 8.0 L Creatinine 0.5 L Glucose Calcium 8.0 L AST 76 H ALT 72 H Total Protein 5.0 L Albumin 3.50 L Globulin 1.5 L Ur Leukocyte Esterase Urine WBC - Diagnostic Findings Chest x-ray: report reviewed, image reviewed (Finding as noted above) Assessment and Plan Assessment: COVID-19 pneumonia Acute hypoxic respiratory failure Severe hypokalemia Hyponatremia Lymphopenia History of B-cell lymphoma History of recurrent right-sided pleural effusion due to lymphoma Plan: Add IV steroids Continue Lovenox Liver enzymes are elevated. The relative contraindication to start REMdesivir Supplemental oxygen Deep breathing size incentive spirometry Prone positioning Further plan of care as per clinical response of patient Monitor liver enzymes as well as renal functions closely. Monitor WBC count and hemoglobin and platelets closely Time with Patient: Greater than 30
[2020-07-10] MEDS: methylPREDNISolone SOD SUCCI 125 MG/2 ML VIAL IV SCH ×2 (11:41→17:33)
--- NOTE | 2020-07-10 13:31 | P.CONS ---
History of Present Illness - Reason for Consult Consult date: 07/10/20 malignancy Requesting physician: Zak Serna - Chief Complaint fever and sob - History of Present Illness Ms Castillo is a pleasant white female, who had presented to [facility] on 02/14/17, complaining of right upper quadrant abdominal pain that started about 2 days ago and had progressed since. The patient was also complaining of some shortness of breath, with increased pain on taking a deep breath. She therefore had a CTA of the chest done on 02/14/17 which was negative for pulmonary embolism but did show an enlarged mediastinal and bronchial lymph nodes with the largest in the subcarinal region measuring 3.[address] of the abdomen and pelvis showed fluid around the gallbladder, possibly related to cholecystitis. In addition there were enlarged celiac and mesenteric nodes measuring up to 2 cm. Ultrasound revealed wall thickening of the gallbladder with gallstones, the largest measuring 1.9 cm. The patient had surgery with laparoscopic cholecystectomy on the same day. Pathology report revealed low-grade B-cell non-Hodgkin's lymphoma, involving the gallbladder wall and pericystic lymph nodes. Sample was sent for consultation at the [facility] which confirmed a diagnosis and indicated a low-grade follicular type. The patient was then referred here for further evaluation and recommendations. She states that at the time of her admission, she had also noted a lump in the right upper neck. Since then she has also noted enlarged nodes in bilateral axillary, left upper neck, as well as both inguinal regions. As she was relatively asymptomatic, she was placed on observation. She was admitted in 05/04 with diverticulitis and related abcess. She developed a large right pleural effusion in late 06/01 and had 2 L drained, with cytology and flow negative. She was started on weekly Rituxan as it was felt that she was symptomatically progressing. She had 1 weekly treatment, followed by another admission for recurrent pleural effusion. It was felt that her course was more aggressive, and she was changed to B- R on 07/14/17. After D 1 C 1 she developed shaking chills and SOB again. She was admitted to [facility] and had 2+ L drained from the left. She was also treated for possible pneumonia. She was discharged on 07/21/17, with further antibiotics not felt to be indicated. She had D2 C1 after discharge ( delayed) She had repeat thoracentesis around 08/07/17, with the quantity diminished from before. She is now s/p 6 cycles, completing those on 12/02/17. She was then placed on maintenance Rituxan, on 02/02/18. She is s/p 12 cycles completing those on 11/09/19 She has remained on surveollance and clinically stable from an oncology standpoint since that time. She was recently diagnosed with COVID and was with minimal side effects until recently when she started to complain increased shortness of breath and noted increased fevers. T max 102.9. Review of Systems All systems: negative Constitutional: Reports as per HPI Past Medical History Past Medical History: Cancer, Hypertension Additional Past Medical History / Comment(s): Nonhodgkins lymphoma stage III diagnosed February,, R side pleural effusions/thoracentesis twice, pt had first chemo and immunotherapy 07/14/17, anemia, diverticulitis, L eye blind since infant, bronchitis when young. History of Any Multi-Drug Resistant Organisms: None Reported Past Surgical History: Cholecystectomy, Uterine Ablation Additional Past Surgical History / Comment(s): R sided thoracentesis twice with last time done on 07/03/17, R eye surgery when 6 yrs old-had tumor behind eye and detached retina. Past Anesthesia/Blood Transfusion Reactions: No Reported Reaction Additional Past Anesthesia/Blood Transfusion Reaction / Comm: Pt recently received blood without reaction. Past Psychological History: No Psychological Hx Reported Smoking Status: Former smoker Past Alcohol Use History: None Reported Past Drug Use History: None Reported - Past Family History Mother History Unknown: Yes Additional Family Medical History / Comment(s): adopted Father History Unknown: Yes Additional Family Medical History / Comment(s): adopted Medications and Allergies Home Medications Medication Instructions Recorded Confirmed Type Multivitamins, Thera [Multivitamin 1 tab PO DAILY 02/14/17 07/09/20 History (formulary)] cloNIDine HCL [Catapres] 0.1 mg PO HS 02/14/17 07/09/20 History ALPRAZolam [Xanax] 0.5 mg PO BID PRN 05/09/17 07/09/20 History Allergies Allergy/AdvReac Type Severity Reaction Status Date / Time glucose [From Gammagard S/D] AdvReac Intermediate Unknown Verified 07/09/20 13:47 glycine [From Gammagard S/D] AdvReac Intermediate Unknown Verified 07/09/20 13:47 IgA less than or equal to 50 AdvReac Intermediate Unknown Verified 07/09/20 13:47 mcg/mL [From Gammagard S/D] immune globulin,gamma (IgG) AdvReac Intermediate Unknown Verified 07/09/20 13:47 human [From Gammagard S/D] Physical Exam Vitals: Vital Signs Temp Pulse Resp BP Pulse Ox 07/10/20 06:00 98.8 F 96 20 122/66 94 L 07/10/20 03:00 101.4 F H 108 H 20 142/79 95 07/10/20 01:20 102.1 F H 103 H 20 158/84 96 07/09/20 21:00 99.0 F 96 18 149/107 96 07/09/20 18:15 101.3 F H 104 H 18 168/92 94 L 07/09/20 15:37 102.9 F H 111 H 20 134/64 92 L 07/09/20 13:03 99.0 F 113 H 22 165/85 88 L - Constitutional General appearance: average body habitus, cooperative, no acute distress - EENT left eye blindness, cloudy conjunctiva/cornea Eyes: anicteric sclerae, EOMI ENT: hearing grossly normal, normal oropharynx - Neck right posterior cervical shotty adenopathy, right groin [address] palpated, soft, fixed, about 2cm-2.5cm Neck: lymphadenopathy - Respiratory Respiratory: left: diminished (bases bilaterally, R>L) - Cardiovascular Heart sounds: normal: S1, S2 leg Peripheral Edema: bilateral: None - Gastrointestinal General gastrointestinal: no absent bowel sounds, no decreased bowel sounds, no distended, no hepatomegaly, no hyperactive bowel sounds, normal bowel sounds, no organomegaly, no rigid, no scaphoid, soft, no splenomegaly, no tenderness, no umbilical hernia, no ventral hernia - Integumentary Integumentary: normal - Neurologic Neurologic: CNII-XII intact - Musculoskeletal Left lateral thigh firm, feels tight, slight discomfort with deep palpation, looks larger in size when compared to the right, no lower extremity swelling Musculoskeletal: strength equal bilaterally - Psychiatric Psychiatric: A&O x's 3, appropriate affect, intact judgment & insight Results CBC & Chem 7: 07/10/20 04:37 07/10/20 04:37 Labs: Abnormal Lab Results - Last 24 Hours (Table) 07/09/20 07/09/20 07/09/20 Range/Units 13:28 13:28 13:28 Lymphocytes # 0.4 L (1.0-4.8) k/uL Sodium 132 L (137-145) mmol/L Potassium 3.1 L (3.5-5.1) mmol/L Glucose 117 H (74-99) mg/dL Calcium 8.3 L (8.4-10.2) mg/dL AST 104 H (14-36) U/L ALT 79 H (4-34) U/L Total Protein 6.1 L (6.3-8.2) g/dL Ur Leukocyte Esterase Moderate H (Negative) Urine WBC 8 H (0-5) /hpf Chest x-ray: report reviewed Assessment and Plan (1) COVID-19 Current Visit: Yes Status: Acute Code(s): U07.1 - COVID-19 SNOMED Code(s): 253856383 (2) Hypoxia Current Visit: Yes Status: Acute Code(s): R09.02 - HYPOXEMIA SNOMED Code(s): 517935628 (3) Fever Current Visit: No Status: Acute Code(s): R50.9 - FEVER, UNSPECIFIED SNOMED Code(s): 946548312 (4) 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 CTA to assess for PE: Complaints Chest Pains Await Lemus Cultures and Immunoglobulins Physician Attests: I have completed the full history and physical and agree with above dictation, dictated as a scribe.
[2020-07-10 14:43] LABS: Magnesium 1.8 mg/dL (1.6-2.3)
[2020-07-10 18:58] VITALS: RESP 18
[2020-07-10] MEDS: cloNIDine HCL 0.1 MG TAB PO SCH (20:23)
--- NOTE | 2020-07-10 20:36 | CT ---
EXAMINATION TYPE: CT angio chest DATE OF EXAM: 07/10/2020 COMPARISON: 06/09/2017 HISTORY: +covid, chest pain, shortness of breath. CT DLP: 380 mGycm Automated exposure control for dose reduction was used. CONTRAST: Performed with IV Contrast, patient injected with 100 mL of Isovue 370. There are 3-D post processed images. There is extensive interstitial infiltrates in both lungs. There is patchy reticular honeycomb patter n. There is no pneumothorax. There is no pleural effusion. Heart size is normal. There is normal contrast opacification of the pulmonary arteries. There are no filling defects. There is no mediastinal adenopathy. There are no hilar masses. The bony thorax is intact. Upper abdominal soft tissues are intact. There is mild anterior wedging of T5 vertebra unchanged. IMPRESSION: No evidence of pulmonary embolism. Extensive pulmonary predominantly interstitial infiltrates are new compared to old exam. There is clearing of the adenopathy and right pleural effusion compared to old exam.
[2020-07-11] MEDS: methylPREDNISolone SOD SUCCI 125 MG/2 ML VIAL IV SCH ×3 (00:13→12:49)
[2020-07-11] MEDS: SODIUM CHLORIDE 0.9% 1,000 ML IV SCH ×2 (01:17→12:52)
--- NOTE | 2020-07-11 07:45 | P.DS ---
Providers Date of admission: 07/09/20 15:59 Attending physician: Federico Muñoz Consults: 07/09/20 18:33 Consult Physician Routine Consulting Provider: John Lynne Consult Reason/Comments: covid pneumonia Do you want consulting provider notified?: Yes Consult Physician Routine Consulting Provider: Chava Partida Consult Reason/Comments: malignancy Do you want consulting provider notified?: Yes Primary care physician: Federico Muñoz - Discharge Diagnosis(es) (1) COVID-19 Current Visit: Yes Status: Acute (2) Hypoxia Current Visit: Yes Status: Acute (3) Lymphoma Current Visit: No Status: Acute (4) Pneumonia Current Visit: No Status: Acute Hospital Course: This discharge summary on 59-year-old white female essentially admitted for covered bronchitis. The patient is doing quite well and is on about 3 L of O2. The patient hopefully can be discharged once cleared by pulmonology. The patient seems to be tolerating diet and has minimal distress. No voiding difficulties. Patient Condition at Discharge: Serious Plan - Discharge Summary Discharge Rx Participant: No New Discharge Prescriptions: New dexAMETHasone [Dexamethasone] 4 mg PO DAILY 7 Days #7 tablet Zinc Sulfate [Orazinc] 220 mg PO DAILY #30 cap Ascorbic Acid [Vitamin C] 500 mg PO DAILY tab Cefuroxime Axetil [Ceftin] 500 mg PO BID 1 Days #14 tab Pantoprazole [Protonix] 40 mg PO AC-BRKFST #30 tablet. Cholecalciferol [Vitamin D3 (25 Mcg = 1000 Iu)] 25 mcg PO DAILY tablet Continue cloNIDine HCL [Catapres] 0.1 mg PO HS Multivitamins, Thera [Multivitamin (formulary)] 1 tab PO DAILY ALPRAZolam [Xanax] 0.5 mg PO BID PRN PRN Reason: Anxiety Discharge Medication List Multivitamins, Thera [Multivitamin (formulary)] 1 tab PO DAILY 02/14/17 [History] cloNIDine HCL [Catapres] 0.1 mg PO HS 02/14/17 [History] ALPRAZolam [Xanax] 0.5 mg PO BID PRN 05/09/17 [History] Ascorbic Acid [Vitamin C] 500 mg PO DAILY tab 07/11/20 [Rx] Cefuroxime Axetil [Ceftin] 500 mg PO BID 1 Days #14 tab 07/11/20 [Rx] Cholecalciferol [Vitamin D3 (25 Mcg = 1000 Iu)] 25 mcg PO DAILY tablet 07/11/20 [Rx] Pantoprazole [Protonix] 40 mg PO TYLER-MELISSAKFST #30 tablet. 07/11/20 [Rx] Zinc Sulfate [Orazinc] 220 mg PO DAILY #30 cap 07/11/20 [Rx] dexAMETHasone [Dexamethasone] 4 mg PO DAILY 7 Days #7 tablet 07/11/20 [Rx] Follow up Appointment(s)/Referral(s): Federico Muñoz MD [Primary Care Provider] - 10 Days
[2020-07-11] MEDS: ENOXAPARIN 40 MG/0.4 ML SYRINGE SQ SCH (09:21)
[2020-07-11] MEDS: CHOLECALCIFEROL 25 MCG (1000 IU) TABLET PO SCH (09:22)
[2020-07-11] MEDS: MULTIVITAMINS, THERA 1 EACH TAB PO SCH (09:22)
[2020-07-11] MEDS: PANTOPRAZOLE 40 MG TABLET PO SCH (09:22)
[2020-07-11] MEDS: ZINC SULFATE 220 MG CAP PO SCH (09:22)
[2020-07-11] MEDS: ASCORBIC ACID 500 MG TAB PO SCH (09:22)
[2020-07-11 09:25] VITALS: BP 144/87; TEMP 98.2
[2020-07-11 10:16] LABS: Basophils % (A) 0 %; Eosinophils % (A) 1 %; HCT 36.2 % (34.0-46.0); HGB 12.7 gm/dL (11.4-16.0); Lymphocytes # (A) 0.4 k/uL (1.0-4.8); Lymphocytes % (A) 12 %; MCH 30.8 pg (25.0-35.0); MCHC 35.3 g/dL (31.0-37.0); MCV 87.3 fL (80.0-100.0); Mean Platelet Volume 7.1; Monocytes # (A) 0.1 k/uL (0-1.0); Monocytes % (A) 4 %; Neutrophils # (A) 2.3 k/uL (1.3-7.7); Neutrophils % (A) 80 %; Platelet Count 339 k/uL (150-450); RBC 4.14 m/uL (3.80-5.40); RDW 12.7 % (11.5-15.5); WBC 2.9 k/uL (3.8-10.6)
[2020-07-11 10:39] LABS: ALT 69 U/L (4-34); AST 74 U/L (14-36); African American GFR (CKD) >90 (>60 ml/min/1.73 sqM); Albumin 3.3 g/dL (3.5-5.0); Alkaline Phosphatase 115 U/L (38-126); Anion Gap 8 mmol/L; Blood Urea Nitrogen 10 mg/dL (7-17); Calcium 8.7 mg/dL (8.4-10.2); Carbon Dioxide 27 mmol/L (22-30); Chloride 102 mmol/L (98-107); Glucose 169 mg/dL (74-99); Non-African American GFR(CKD) >90 (>60 ml/min/1.73 sqM); Potassium 3.1 mmol/L (3.5-5.1); Sodium 137 mmol/L (137-145); Total Bilirubin 0.3 mg/dL (0.2-1.3); Total Protein 5.9 g/dL (6.3-8.2)
--- NOTE | 2020-07-11 10:49 | P.PN ---
Subjective Progress Note Date: 07/11/20 Principal diagnosis: COVID-19 pneumonia Acute hypoxic respiratory failure Severe hypokalemia Hyponatremia Lymphopenia History of B-cell lymphoma History of recurrent right-sided pleural effusion due to lymphoma 07/11/2020, patient seen eval examined during the rounds labs reviewed medications reviewed, history status remains stable and continued to improve, patient however remains on 3 L oxygen discussed with RN to taper oxygen down, patient wants to go home, in case if he goes home then would require Decadron 6 mg daily for 10 days, home oxygen assessment follow-up telemetry medicine as outpatient, Lovenox can be switched to asa, follow-up in outpatient Patient is a 59-year-old female with the history of IgA and IgG deficiency, patient was diagnosed with COVID-19 pneumonia earlier but has been doing well until about 4 days ago started having shortness of breath cough and intermittent fever came into the hospital for further evaluation, past medical history is significant for above as well as hypertension and generalized anxiety disorder, she was diagnosis non-Hodgkin's lymphoma stage III in February 2017, status post chemotherapy with resolution of recurrent pleural effusion, status post a right- sided thoracentesis multiple times, chest x-ray significant for interstitial infiltrate oxygen saturation was 86%, other significant labs includes hypokalem ia with the potassium was 3.1, mildly elevated liver enzymes with AST and ALT of 72 and 76, renal functions within normal limit, total bilirubin is 0.2, patient is being treated with IV Rocephin 1 g daily, Lovenox, Objective - Vital Signs Vital signs: Vital Signs Temp 98.2 F 07/11/20 08:00 Pulse 93 07/11/20 08:00 Resp 18 07/11/20 02:01 BP 144/87 07/11/20 08:00 Pulse Ox 92 L 07/11/20 08:00 Intake & Output 07/10/20 07/11/20 07/11/20 18:59 06:59 18:59 Intake Total 550 Balance 550 Weight 74.843 kg Intake: Oral 550 Other: Voiding Method Toilet # Voids 2 2 - Exam - Constitutional General appearance: average body habitus, cooperative, disheveled - EENT Eyes: PERRLA Ears: bilateral: normal - Neck Carotids: bilateral: upstroke normal - Respiratory Respiratory: bilateral: CTA - Cardiovascular Rhythm: regular Heart sounds: normal: S1, S2 - Gastrointestinal General gastrointestinal: decreased bowel sounds, distended, soft - Integumentary Integumentary: normal turgor - Neurologic Neurologic: CNII-XII intact - Musculoskeletal Musculoskeletal: gait normal, generalized weakness, strength equal bilaterally - Psychiatric Psychiatric: A&O x's 3, appropriate affect, intact judgment & insight - Labs CBC & Chem 7: 07/11/20 09:54 07/11/20 09:54 Labs: Abnormal Lab Results - Last 24 Hours (Table) 07/10/20 07/11/20 07/11/20 Range/Units 14:05 09:54 09:54 WBC 2.9 L (3.8-10.6) k/uL Lymphocytes # 0.4 L (1.0-4.8) k/uL Potassium 3.1 L (3.5-5.1) mmol/L Creatinine 0.50 L (0.52-1.04) mg/dL Glucose 169 H (74-99) mg/dL AST 74 H (14-36) U/L ALT 69 H (4-34) U/L Lactate Dehydrogenase 2077 H (313-618) U/L Total Protein 5.9 L (6.3-8.2) g/dL Albumin 3.3 L (3.5-5.0) g/dL Assessment and Plan Assessment: COVID-19 pneumonia Acute hypoxic respiratory failure Severe hypokalemia Hyponatremia Lymphopenia History of B-cell lymphoma History of recurrent right-sided pleural effusion due to lymphoma Plan: IV steroids can be switched to oral and the time of discharge Decadron 6 mg d aily for total of 10 day therapy Lovenox, at the time of discharge can be changed to baby aspirin once daily Liver enzymes are elevated. The relative contraindication to start REMdesivir Supplemental oxygen taper down as tolerated Deep breathing size incentive spirometry Prone positioning Further plan of care as per clinical response of patient Monitor liver enzymes as well as renal functions closely. Monitor WBC count and hemoglobin and platelets closely Time with Patient: Greater than 30
[2020-07-11 11:46] LABS: Immunoglobulin A 69.4 mg/dL (60.0-350.0); Immunoglobulin M <16.9 mg/dL (40.0-280.0)
[2020-07-11 14:28] VITALS: PULSE 105
[2020-07-11 16:53] LABS: Cancer Antigen 125 2.5 U/mL (0.0-30.1)
== END 2020-07-11 14:55 | disposition home or self-care (01) | DRG 177 ==
LOC: EC 13:01 → 4SSUR 15:59 → 1SOBS 07-10 07:49
PROVIDERS: ADMIT Family Medicine; ATTEND Family Medicine
DX: U07.1 COVID-19 (principal); J12.82 Pneumonia due to coronavirus disease 2019; J96.01 Acute respiratory failure with hypoxia; C82.00 Follicular lymphoma grade I, unspecified site; E87.1 Hypo-osmolality and hyponatremia; J90 Pleural effusion, not elsewhere classified; Z90.49 Acquired absence of other specified parts of digestive tract; D72.810 Lymphocytopenia; E87.6 Hypokalemia; F41.1 Generalized anxiety disorder; H54.62 Unqualified visual loss, left eye, normal vision right eye; I10 Essential (primary) hypertension; J40 Bronchitis, not specified as acute or chronic; Z87.891 Personal history of nicotine dependence; Z92.21 Personal history of antineoplastic chemotherapy; Z79.899 Other long term (current) drug therapy; Z88.8 Allergy status to other drugs, medicaments and biological substances
CPT/HCPCS: 36415; 71045; 71275; 80053; 81001; 82784; 83605; 83615; 83690; 83735; 85025; 86304; 87040; 96361; 96374; 99285

== ENCOUNTER → 2020-09-05 | Outpatient (CLI) | payer BC ==
--- NOTE | 2020-09-05 13:42 | MM ---
Reason for exam: screening (asymptomatic). Last mammogram was performed 5 years and 7 months ago. History: Patient is postmenopausal and history of other cancer. Took hormonal contraceptives for 10 years. Physical Findings: A clinical breast exam by your physician is recommended on an annual basis and results should be correlated with mammographic findings. MG Screening Mammo w CAD Bilateral CC and MLO view(s) were taken. Prior study comparison: February 06, 2015, bilateral MG screening mammo w CAD. There are scattered fibroglandular densities. ASSESSMENT: Negative, BI-RAD 1 RECOMMENDATION: Routine screening mammogram of both breasts in 1 year.
== END | disposition home or self-care (01) ==
LOC: RADMAMWWP 10:58
PROVIDERS: ATTEND Family Medicine
DX: Z12.31 Encounter for screening mammogram for malignant neoplasm of breast (principal)
CPT/HCPCS: 77067

== ENCOUNTER 2020-09-28 08:10 | Day surgery (SDC) | payer BC ==
[2020-09-27 09:21] VITALS: BMI 31.2
[~2020-09-28 08:10] MED LIST changes: -ACETAMINOPHEN TAB 500 MG TAB PO NR; -FAMOTIDINE 20 MG/2 ML VIAL IV NR; +LACTATED RINGERS 1,000 ML IV SCH; -RITUXIMAB PVVR IV NR; -SODIUM CHLORIDE 0.9% 500 ML 500 ML in EMPTY BAG 1 BAG IV PRN; -SODIUM CHLORIDE 0.9% IV NR; -diphenhydrAMINE 50 MG/ML 1 ML VIAL IVP NR; -diphenhydrAMINE 50 MG/ML 1 ML VIAL IVP ONE; -methylPREDNISolone SOD SUCCI 125 MG/2 ML VIAL IV NR
[2020-09-28 08:39] VITALS: TEMP 97.5
[2020-09-28] MEDS ORDERED: LIDOCAINE 1% (10MG/ML) FOR IV START INTRADERMA ONE (08:43)
[2020-09-28] MEDS ORDERED: PROPOFOL 10 MG/ML 20 ML VIAL IV ONE (08:56)
--- NOTE | 2020-09-28 09:02 | P.GSHP ---
History of Present Illness H&P Date: 09/28/20 Chief Complaint: Screening colonoscopy This a 59-year-old female who presents today for screening colonoscopy. Patient denies any significant GI complaints. Past Medical History Past Medical History: Cancer, Hypertension Additional Past Medical History / Comment(s): Nonhodgkins lymphoma stage III diagnosed February,, R side pleural effusions/thoracentesis twice, pt had first chemo and immunotherapy 07/14/17, anemia, diverticulitis, L eye blind since , bronchitis when young. History of Any Multi-Drug Resistant Organisms: None Reported Past Surgical History: Cholecystectomy, Uterine Ablation Additional Past Surgical History / Comment(s): R sided thoracentesis twice with last time done on 07/03/17, R eye surgery when 6 yrs old-had tumor behind eye and detached retina. COLONOSCOPY Past Anesthesia/Blood Transfusion Reactions: No Reported Reaction Additional Past Anesthesia/Blood Transfusion Reaction / Comment(s): Pt received blood without reaction. Smoking Status: Former smoker - Past Family History Mother History Unknown: Yes Additional Family Medical History / Comment(s): adopted Father History Unknown: Yes Additional Family Medical History / Comment(s): adopted Medications and Allergies Home Medications Medication Instructions Recorded Confirmed Type Multivitamins, Thera [Multivitamin 1 tab PO DAILY 02/14/17 09/27/20 History (formulary)] cloNIDine HCL [Catapres] 0.1 mg PO HS 02/14/17 09/27/20 History ALPRAZolam [Xanax] 0.5 mg PO BID PRN 05/09/17 09/27/20 History Allergies Allergy/AdvReac Type Severity Reaction Status Date / Time glucose [From Gammagard S/D] AdvReac Intermediate Unknown Verified 09/28/20 08:33 glycine [From Gammagard S/D] AdvReac Intermediate Unknown Verified 09/28/20 08:33 IgA less than or equal to 50 AdvReac Intermediate Unknown Verified 09/28/20 08:33 mcg/mL [From Gammagard S/D] immune globulin,gamma (IgG) AdvReac Intermediate Unknown Verified 09/28/20 08:33 human [From Gammagard S/D] Surgical - Exam Vital Signs Temp Pulse Resp BP Pulse Ox 97.5 F L 87 16 120/81 98 09/28/20 08:36 09/28/20 08:36 09/28/20 08:36 09/28/20 08:36 09/28/20 08:36 - General well developed, well nourished, no distress - Eyes PERRL - ENT normal pinna - Neck no masses - Respiratory normal expansion - Abdomen Abdomen: soft, non tender Assessment and Plan Assessment: We'll perform screening colonoscopy
--- NOTE | 2020-09-28 09:18 | P.OP ---
Date of Procedure: 09/28/20 Preoperative Diagnosis: Screening colonoscopy Postoperative Diagnosis: Diverticulosis Procedure(s) Performed: Colonoscopy Anesthesia: MAC Surgeon: Jaxson Cotto Pathology: none sent Condition: stable Disposition: PACU Description of Procedure: The patient's placed on the endoscopy table in the lateral position. She received IV sedation. Digital rectal exam was performed which revealed no abnormalities. The flexible colonoscope was then placed patient anus and passed throughout the entire colon. The ileocecal valve was visualized. The cecum, ascending and transverse colon appeared normal. In the descending and sigmoid colon there is extensive diverticular changes. The scope was brought back the rectum and this appeared normal. Scope withdrawn for patient.
[2020-09-28 09:27] VITALS: BP 134/79; PULSE 69; RESP 16
== END 2020-09-28 10:03 ==
LOC: ORWHC2ENDO 08:10
PROVIDERS: ATTEND Surgery
DX: Z12.11 Encounter for screening for malignant neoplasm of colon (principal); K57.30 Diverticulosis of large intestine without perforation or abscess without bleeding; I10 Essential (primary) hypertension; Z85.72 Personal history of non-Hodgkin lymphomas; Z87.891 Personal history of nicotine dependence
CPT/HCPCS: G0121; J2704

== ENCOUNTER → 2023-03-28 | Outpatient (CLI) | payer BC ==
--- NOTE | 2023-03-29 13:10 | PE ---
EXAMINATION TYPE: PET CT fusion skull to thigh DATE OF EXAM: 03/28/2023 CLINICAL INDICATION:Female, 62 years old with history of C82.08 Lymphoma; TECHNIQUE: Following the intravenous administration of 12.42 mCi of F-18 FDG, whole body images are performed from the skull base to the midthigh. Images are reviewed on the computer in the coronal, axial, and sagittal planes. Reconstructed rotating images are created on independent workstation and reviewed on the computer. A non-contrast CT is performed in conjunction with the PET scan. Glucose level 110 mg/dL CT DLP: 669. mGycm, Automated exposure control for dose reduction was used. COMPARISON: CT 08/04/2018, PET/CT None, FINDINGS: Mediastinal SUV mean is 2.4. Hepatic parenchyma SUV mean is 2.8. SKULL BASE AND NECK: No suspicious radiotracer activity. CHEST, MEDIASTINUM, AND HILAR REGION: * Left axillary lymph node max SUV 13.2 measuring 9 mm in short axis. ABDOMEN AND PELVIS: * Mesenteric mass which is centrally lower density compatible with necrosis. This measures 46 x 40 c m. Max SUV 13.2 on the periphery. Fat stranding changes around this mass with multiple smaller lymph nodes which are below the sensitivity for PET/CT. * Retroperitoneal lymph node max SUV 6.9 series 3 image 137 measuring 11 mm in short axis. MUSCULOSKELETAL STRUCTURES: * Intramuscular uptake within the rotator cuff near the scapula max SUV 7.5. Favored represent muscl e strain. * Increased uptake near the left femur greater trochanter max SUV 4.4. OTHER CT: Atherosclerosis of the carotid bifurcations. Coronary artery atherosclerosis. Scattered col onic diverticula. Marija mesentery. IMPRESSION: Mesenteric mass with central necrosis and peripheral FDG activity compatible with neoplasm. There are at least 2 metastatic lymph nodes one within the left axilla and one within the retroperitoneum.
== END | disposition home or self-care (01) ==
LOC: RADPETMAIN 07:18
PROVIDERS: ATTEND Internal Medicine Hematology & Oncology
DX: C82.08 Follicular lymphoma grade I, lymph nodes of multiple sites (principal); K55.069 Acute infarction of intestine, part and extent unspecified; R19.00 Intra-abdominal and pelvic swelling, mass and lump, unspecified site
CPT/HCPCS: 78815; A9552

== ENCOUNTER → 2023-12-15 | Outpatient (CLI) | payer BC ==
--- NOTE | 2023-12-15 16:49 | US ---
EXAMINATION TYPE: US venous doppler duplex LE LT DATE OF EXAM: 12/15/2023 4:37 PM COMPARISON: NONE CLINICAL INDICATION: Female, 63 years old with history of [id number] LOCALIZED SWELLING MASS/LUMP,L E LEFT; edema left leg lump upper lateral thigh SIDE PERFORMED: Left TECHNIQUE: The lower extremity deep venous system is examined utilizing real time linear array sonog vern with graded compression, color doppler sonography, and spectral doppler. VESSELS IMAGED: Common Femoral Vein Deep Femoral Vein Greater Saphenous Vein * Femoral Vein Popliteal Vein Small Saphenous Vein * Proximal Calf Veins (* superficial vessels) Left Leg: Negative for DVT IMPRESSION: Grayscale, color doppler, spectral doppler imaging performed of the deep veins of the lo wer extremities. There is normal flow, compressibility, vascular waveforms. [facility], , 12/15/2023 4:46 PM
== END | disposition home or self-care (01) ==
LOC: RADUSWWP 16:11
PROVIDERS: ATTEND Internal Medicine Hematology & Oncology

== ENCOUNTER → 2024-06-01 | Outpatient (CLI) | payer BC ==
--- NOTE | 2024-06-01 10:32 | US ---
EXAMINATION TYPE: US venous doppler duplex LE BI DATE OF EXAM: 06/01/2024 10:21 AM COMPARISON: 12/15/2023 CLINICAL INDICATION: Female, 63 years old with history of R22.41,R22.42 SWELLING MASS, LUMP TRUONG LE; O n medication that causes blood clots, on thinners, BL LE Swelling, right LE is painful to the touch , Pain TECHNIQUE: The lower extremity deep venous system is examined utilizing real time linear array sonog vern with graded compression, color doppler sonography, and spectral doppler. SIDE PERFORMED: Bilateral FINDINGS: VESSELS IMAGED: Common Femoral Vein Deep Femoral Vein Greater Saphenous Vein * Femoral Vein Popliteal Vein Small Saphenous Vein * Proximal Calf Veins (* superficial vessels) Right Leg: Negative for DVT, Color Doppler imaging shows patency of the vessels. Spectral waveforms are within normal limits. Left Leg: Negative for DVT, Color Doppler imaging shows patency of the vessels. Spectral waveforms a re within normal limits. IMPRESSION: No ultrasound evidence for deep venous thrombosis. [facility], , 06/01/2024 10:30 AM
== END | disposition home or self-care (01) ==
LOC: RADUSWWP 09:57
PROVIDERS: ATTEND Internal Medicine Hematology & Oncology
DX: R22.43 Localized swelling, mass and lump, lower limb, bilateral (principal)
CPT/HCPCS: 93970